=== PATIENT | female | born 1995 | race American Indian/Alaskan Native ===

== ENCOUNTER 2017-01-17 07:39 | Emergency (ER) | payer OTHER ==
[2017-01-17 07:39] VITALS: BMI 47.7
[2017-01-17 07:52] VITALS: BP 142/91; PULSE 78; RESP 16; TEMP 97.8; O2SAT 98
--- NOTE | 2017-01-17 07:56 | ED PDOC ---
HPI: General Adult Time Seen by Provider: 01/17/17 07:48 Chief Complaint (Nursing): Lower Extremity Problem/Injury Chief Complaint (Provider): right foot pain History Per: Patient History/Exam Limitations: no limitations Additional Complaint(s): 21yo female comes to the ED complaining of sudden onset right foot pain since yesterday. States since waking up this morning she has difficulty bearing weight on the right foot. Denies any falls, twisting or other trauma. No leg pain, back pain, knee pain. no other complaints. Past Medical History Reviewed: Historical Data, Nursing Documentation, Vital Signs Vital Signs: Last Vital Signs Temp 97.8 F 01/17/17 07:45 Pulse 78 01/17/17 07:45 Resp 16 01/17/17 07:45 BP 142/91 H 01/17/17 07:45 Pulse Ox 98 01/17/17 07:58 - Medical History PMH: No Chronic Diseases - Surgical History Surgical History: Tonsillectomy (and adenoidectomy) - Family History Family History: States: Unknown Family Hx - Home Medications Home Medications: Ambulatory Orders Medication Instructions Recorded Famotidine [Pepcid] 20 mg PO BID #20 tab 12/26/16 Ibuprofen [Motrin] 600 mg PO Q6H PRN #20 tab 12/26/16 Nitrofurantoin Macrocrystals 100 mg PO BID #14 cap 12/26/16 [Macrobid] Ondansetron [Zofran Odt] 4 mg PO Q8H PRN #15 odt 12/26/16 Ibuprofen [Motrin Tab] 600 mg PO Q6 PRN #15 tab 01/17/17 - Allergies Allergies/Adverse Reactions: Allergies Allergy/AdvReac Type Severity Reaction Status Date / Time Penicillins Allergy RASH Verified 12/14/16 11:49 pineapple Allergy SWELLING Verified 12/14/16 11:49 Review of Systems ROS Statement: Except As Marked, All Systems Reviewed And Found Negative Musculoskeletal: Positive for: Foot Pain. Negative for: Back Pain, Leg Pain, Other (knee pain) Physical Exam - Reviewed Nursing Documentation Reviewed: Yes Vital Signs Reviewed: Yes - Physical Exam Appears: Positive for: Well, Non-toxic, No Acute Distress Head Exam: Positive for: ATRAUMATIC, NORMAL INSPECTION, NORMOCEPHALIC Skin: Positive for: Warm, Dry Extremity: Positive for: Normal ROM, Tenderness (mild tenderness on dorsum of right foot. ). Negative for: Deformity, Swelling Neurologic/Psych: Positive for: Alert, Oriented - ECG O2 Sat by Pulse Oximetry: 98 (RA) Pulse Ox Interpretation: Normal Medical Decision Making Medical Decision Makin XR Right Foot, XR Right ankle ordered to rule out fracture. Motrin 600mg ordered for pain. Disposition - Clinical Impression Clinical Impression: Foot pain - Patient ED Disposition Is Patient to be Admitted: No Counseled Patient/Family Regarding: Studies Performed, Diagnosis, Need For Followup, Rx Given - Disposition Referrals: Stefan Larson MD [Staff Provider] - Disposition: Routine/Home Disposition Time: 10:58 Condition: STABLE Additional Instructions: See foot doctor for further testing. Use medication for pain as directed. Prescriptions: Ibuprofen [Motrin Tab] 600 mg PO Q6 PRN #15 tab PRN Reason: Pain, Moderate (4-7) Instructions: Foot Sprain (ED) Forms: [facility] ED School/Work Excuse Additional Comments - Additional Comments Additional Comments: Scribe Attestation: Documented by Cesar Denis, acting as a scribe for Bakari Bullock DO. Provider Scribe Attestation: All medical record entries made by the Scribe were at my direction and personally dictated by me. I have reviewed the chart and agree that the record accurately reflects my personal performance of the history, physical exam, medical decision making, and the department course for this patient. I have also personally directed, reviewed, and agree with the discharge instructions and disposition.
--- NOTE | 2017-01-17 10:54 | RAD ---
PROCEDURE: Right ankle 01/17/2017 s. HISTORY: foot pain COMPARISON: Comparison made with concurrent radiographs of the right foot as well as prior radiographs right ankle this 07/22/2010. FINDINGS: BONES: No evidence of acute displaced fracture nor dislocation. Ankle mortise maintained. Talar dome is intact. JOINTS: No dislocation. No significant osteoarthritis SOFT TISSUES: Normal. OTHER FINDINGS: None. IMPRESSION: No acute fracture seen. . If symptoms persist or occult fracture suspected clinically recommend followup radiographs in 5-10 days as most fractures should become radiographically evident in this timeframe.
--- NOTE | 2017-01-17 11:02 | RAD ---
PROCEDURE: Right Foot Radiographs. HISTORY: foot ankle pain COMPARISON: None. FINDINGS: BONES: Normal. No fracture. JOINTS: Normal. SOFT TISSUES: Normal. OTHER FINDINGS: None. IMPRESSION: No evidence of acute pathology .
== END 2017-01-17 11:07 | disposition home or self-care (01) ==
LOC: H.ER 07:39
DX: M79.671 Pain in right foot (principal)

== ENCOUNTER 2017-01-21 14:44 | Emergency (ER) | payer OTHER ==
[2017-01-21 14:44] VITALS: BMI 47.7
[2017-01-21 14:55] VITALS: BP 126/59; PULSE 86; RESP 22; TEMP 98; O2SAT 98
--- NOTE | 2017-01-21 15:22 | ED PDOC ---
Lower Extremity Pain/Injury Time Seen by Provider: 01/21/17 15:08 Chief Complaint (Nursing): Lower Extremity Problem/Injury Chief Complaint (Provider): right foot pain History Per: Patient History/Exam Limitations: no limitations Onset/Duration Of Symptoms: Days (x 5) Current Symptoms Are (Timing): Still Present Additional Complaint(s): Malini Bragg is a 21 year old female, with no previous medical history, who presents to the ED with complaints of right foot pain which has been ongoing for the past 5 days. Pt reports waking up from sleep 5 days ago and noticing swelling and pain to the foot. Pt reports no trauma, recent travel, using control, shortness of breath or chest pain. Pt reports being seen in the ED 5 days ago where an x-ray was preformed and pt was discharged home on ibuprofen. Pt denies any additional complaints. PMD: Khanh Marroquin MD Past Medical History Reviewed: Historical Data, Nursing Documentation, Vital Signs Vital Signs: Last Vital Signs Temp 98.0 F 01/21/17 14:53 Pulse 86 01/21/17 14:53 Resp 22 01/21/17 14:53 BP 126/59 L 01/21/17 14:53 Pulse Ox 98 01/21/17 14:53 - Medical History PMH: No Chronic Diseases - Surgical History Surgical History: Tonsillectomy (and adenoidectomy) - Family History Family History: States: Unknown Family Hx - Home Medications Home Medications: Ambulatory Orders Medication Instructions Recorded Famotidine [Pepcid] 20 mg PO BID #20 tab 12/26/16 Ibuprofen [Motrin] 600 mg PO Q6H PRN #20 tab 12/26/16 Nitrofurantoin Macrocrystals 100 mg PO BID #14 cap 12/26/16 [Macrobid] Ondansetron [Zofran Odt] 4 mg PO Q8H PRN #15 odt 12/26/16 Ibuprofen [Motrin Tab] 600 mg PO Q6 PRN #15 tab 01/17/17 traMADol [Ultram] 50 mg PO Q6H PRN #15 tab 01/21/17 - Allergies Allergies/Adverse Reactions: Allergies Allergy/AdvReac Type Severity Reaction Status Date / Time Penicillins Allergy RASH Verified 01/21/17 14:52 pineapple Allergy SWELLING Verified 01/21/17 14:52 Review of Systems ROS Statement: Except As Marked, All Systems Reviewed And Found Negative Cardiovascular: Negative for: Chest Pain Respiratory: Negative for: Shortness of Breath Musculoskeletal: Positive for: Foot Pain (right foot pain and swelling ) Physical Exam - Reviewed Nursing Documentation Reviewed: Yes Vital Signs Reviewed: Yes - Physical Exam Appears: Positive for: Well, Non-toxic, No Acute Distress Head Exam: Positive for: ATRAUMATIC, NORMAL INSPECTION, NORMOCEPHALIC Skin: Positive for: Normal Color Eye Exam: Positive for: Normal appearance ENT: Positive for: Normal ENT Inspection Respiratory: Negative for: Decreased Breath Sounds, Respiratory Distress Extremity: Positive for: Normal ROM, Tenderness (generalized in the mid foot. ) , Capillary Refill (< 2 seconds ), Swelling. Negative for: Calf Tenderness, Deformity Neurologic/Psych: Positive for: Alert, Oriented - Laboratory Results Result Diagrams: 01/21/17 18:17 - ECG O2 Sat by Pulse Oximetry: 98 (RA) Pulse Ox Interpretation: Normal Medical Decision Making Medical Decision Making: Initial Impression: foot pain Initial Plan: Podiatry consult Podiatry resident ordered labs. States to discharge the patient and f.u with podiatry. Sed rate is still pending. Scribe Attestation: Documented by Neha Frost, acting as a scribe for Hina Hurtado PA-C. Provider Scribe Attestation: All medical record entries made by the Scribe were at my direction and personally dictated by me. I have reviewed the chart and agree that the record accurately reflects my personal performance of the history, physical exam, medical decision making, and the department course for this patient. I have also personally directed, reviewed, and agree with the discharge instructions and disposition. Disposition - Clinical Impression Clinical Impression: Foot pain - Patient ED Disposition Is Patient to be Admitted: No Counseled Patient/Family Regarding: Diagnosis, Need For Followup, Rx Given - Disposition Referrals: Carina Garber [Primary Care Provider] - Disposition: Routine/Home Disposition Time: 19:11 Condition: GOOD Prescriptions: traMADol [Ultram] 50 mg PO Q6H PRN #15 tab PRN Reason: Pain Instructions: Arthralgia (ED)
--- NOTE | 2017-01-21 17:11 | CP.PCM.CON ---
History of Present Illness - History of Present Illness History of Present Illness: 21 year old female with no PMHx presents to the ED with complaints of right foot pain. She states that she came to the ED on Tuesday with the same complaint. She woke up Tuesday morning and noticed swelling and pain to her right foot. She denies any trauma. She state at her last visit she got an xray which was negative. She has been icing and elevating her right lower extremity but the pain is still there. She denies taking any oral medication for the pain. She denies n/v/f/c/sob/cp. Past Patient History - Infectious Disease Hx of Infectious Diseases: None - Past Social History Smoking Status: Never Smoked - CARDIAC Hx Cardiac Disorders: No - PULMONARY Hx Respiratory Disorders: No - NEUROLOGICAL Hx Neurological Disorder: No - HEENT Hx HEENT Problems: No - ENDOCRINE/METABOLIC Hx Endocrine Disorders: No - HEMATOLOGICAL/ONCOLOGICAL Hx Blood Disorders: No - INTEGUMENTARY Other/Comment: folliculitis - MUSCULOSKELETAL/RHEUMATOLOGICAL Hx Musculoskeletal Disorders: No - GASTROINTESTINAL Hx Gastrointestinal Disorders: No Other/Comment: c/o vomiting - GENITOURINARY/GYNECOLOGICAL Hx Genitourinary Disorders: No - PSYCHIATRIC Hx Psychophysiologic Disorder: No Hx Substance Use: No - SURGICAL HISTORY Hx Tonsillectomy: Yes (and adenoidectomy) - ANESTHESIA Hx Anesthesia: Yes Hx Anesthesia Reactions: No Hx Malignant Hyperthermia: No Meds Allergies/Adverse Reactions: Allergies Allergy/AdvReac Type Severity Reaction Status Date / Time Penicillins Allergy RASH Verified 01/21/17 14:52 pineapple Allergy SWELLING Verified 01/21/17 14:52 Physical Exam - Constitutional Appears: Well, Non-toxic, No Acute Distress - Extremities Exam Additional comments: Vasc: DP and PT pulses palpable 2/4 b/l. CFT < 3 seconds to all digits b/l. Skin temperature warm to cool from proximal to distal b/l. Neuro: Gross sensation intact b/l. Ortho: Pain on palpation of right midfoot. No pain on palpation to deltoid ligaments, ATFL, PTFL, or CFL. No calf tenderness upon compression. Derm: No open lesions. No erythema. Mild amount of non-pitting edema noted to dorsum of right foot. Nails 1-5 b/l WNL for thickness and length. - Neurological Exam Neurological exam: Alert, Oriented x3 - Psychiatric Exam Psychiatric exam: Normal Affect, Normal Mood Results - Vital Signs Recent Vital Signs: Last Vital Signs Temp 98.0 F 01/21/17 14:53 Pulse 86 01/21/17 14:53 Resp 22 01/21/17 14:53 BP 126/59 L 01/21/17 14:53 Pulse Ox 98 01/21/17 15:27 - Labs Result Diagrams: 01/21/17 18:17 Assessment & Plan - Assessment and Plan (Free Text) Assessment: 21 year old female with soft tissue pain and swelling to right foot Plan: Patient examined and evaluated Discussed in detail with attending, Dr. Larson Chart and vitals reviewed Radiographs reviewed-no signs of acute fracture noted CBC reviewed-WNL Right foot dressed with modified treadwell compressive dressing Patient to ambulate in surgical shoe on the right RICE therapy:Ice and elevate daily,Patient instructed to rest this weekend and keep off foot as much as possible If patient is feeling better, may remove dressing early next week Patient to follow up in Podiatry clinic next week, may obtain new radiographs at this time
[2017-01-21 18:21] LABS: HEMATOCRIT 40.7 % (34.0-47.0); MEAN CELL VOLUME 83.6 fl (81.0-99.0); MEAN CORPUSCULAR HEMOGLOBIN 27.1 pg (27.0-31.0); MEAN CORPUSCULAR HGB CONC 32.4 g/dL (33.0-37.0); RED CELL DISTRIBUTION WIDTH 13.6 % (11.5-14.5); WHITE BLOOD COUNT 8.7 K/uL (4.8-10.8)
== END 2017-01-21 19:19 | disposition home or self-care (01) ==
LOC: H.ER 14:44
DX: M79.671 Pain in right foot (principal)

== ENCOUNTER 2017-07-12 08:09 | Emergency (ER) | payer OTHER ==
[2017-07-12 08:16] VITALS: BMI 40.3
--- NOTE | 2017-07-12 08:51 | ED PDOC ---
Lower Extremity Pain/Injury Time Seen by Provider: 07/12/17 08:24 Chief Complaint (Nursing): Lower Extremity Problem/Injury Chief Complaint (Provider): Ankle Pain History Per: Patient History/Exam Limitations: no limitations Onset/Duration Of Symptoms: Hrs (x 1) Current Symptoms Are (Timing): Still Present Additional Complaint(s): Malini is a 21 y/o female who complains of right ankle pain after falling down two steps 1 hour ago. She states that she twisted her ankle upon falling but was able to walk to the hospital. PMD: None Provided - Ankle/Foot Description Of Injury: Fell, Twisted Past Medical History Reviewed: Historical Data, Nursing Documentation, Vital Signs Vital Signs: Last Vital Signs Temp 97.8 F 07/12/17 08:15 Pulse 91 H 07/12/17 08:15 Resp 20 07/12/17 08:15 BP 120/57 L 07/12/17 08:15 Pulse Ox 97 07/12/17 08:15 - Medical History PMH: No Chronic Diseases - Surgical History Surgical History: Tonsillectomy (and adenoidectomy) - Family History Family History: States: Unknown Family Hx - Home Medications Home Medications: Ambulatory Orders Medication Instructions Recorded Famotidine [Pepcid] 20 mg PO BID #20 tab 12/26/16 Ibuprofen [Motrin] 600 mg PO Q6H PRN #20 tab 12/26/16 Nitrofurantoin Macrocrystals 100 mg PO BID #14 cap 12/26/16 [Macrobid] Ondansetron [Zofran Odt] 4 mg PO Q8H PRN #15 odt 12/26/16 Ibuprofen [Motrin Tab] 600 mg PO Q6 PRN #15 tab 01/17/17 traMADol [Ultram] 50 mg PO Q6H PRN #15 tab 01/21/17 Ibuprofen [Motrin] 600 mg PO Q6H PRN #20 tab 07/12/17 - Allergies Allergies/Adverse Reactions: Allergies Allergy/AdvReac Type Severity Reaction Status Date / Time Penicillins Allergy RASH Verified 07/12/17 08:20 pineapple Allergy SWELLING Verified 07/12/17 08:20 Review of Systems ROS Statement: Except As Marked, All Systems Reviewed And Found Negative Musculoskeletal: Positive for: Leg Pain (Ankle) Physical Exam - Reviewed Nursing Documentation Reviewed: Yes Vital Signs Reviewed: Yes - Physical Exam Appears: Positive for: Well, Non-toxic, No Acute Distress Pulses-Dorsalis Pedis (R): 2+ Extremity: Positive for: Normal ROM, Tenderness (lateral malleolus), Capillary Refill (< 2 sec), Other (sensation intact). Negative for: Pedal Edema, Deformity, Swelling Neurologic/Psych: Positive for: Alert, Oriented - ECG O2 Sat by Pulse Oximetry: 97 (RA) Pulse Ox Interpretation: Normal - Other Rad XR R foot X-Ray: Interpreted by Me (No fx.) XR R ankle X-Ray: Interpreted by Me (No fx.) Medical Decision Making Medical Decision Making: Initial Impression: Ankle Pain Initial Plan --Urine --XR Ankle AP LAT POST RT --Ibuprofen --Foot Right 3 Views --Reevaluation ~ Scribe Attestation: Documented by Bharathi Melissa, acting as a scribe for Dr. Neha Starks. Provider Scribe Attestation: All medical record entries made by the Scribe were at my direction and personally dictated by me. I have reviewed the chart and agree that the record accurately reflects my personal performance of the history, physical exam, medical decision making, and the department course for this patient. I have also personally directed, reviewed, and agree with the discharge instructions and disposition. Disposition - Clinical Impression Clinical Impression: Ankle sprain - Disposition Referrals: [facility] [Outside] Disposition: Routine/Home Disposition Time: 10:17 Condition: STABLE Prescriptions: Ibuprofen [Motrin] 600 mg PO Q6H PRN #20 tab PRN Reason: Pain, Moderate (4-7) Instructions: Ankle Sprain (ED) Forms: [employer] ([place]), [facility] ED School/Work Excuse
[2017-07-12 10:30] VITALS: BP 128/78; PULSE 78; RESP 19; TEMP 97.6
--- NOTE | 2017-07-12 10:48 | RAD ---
PROCEDURE: Right Foot Radiographs. HISTORY: Lateral pain COMPARISON: None. FINDINGS: BONES: Normal. No fracture. JOINTS: Normal. SOFT TISSUES: Normal. OTHER FINDINGS: None. IMPRESSION: Normal right foot radiographs.
--- NOTE | 2017-07-12 10:50 | RAD ---
PROCEDURE: Right Ankle Radiograph. HISTORY: Lateral pain COMPARISON: None FINDINGS: BONES: Normal. No fracture. JOINTS: Normal. No osteoarthritis. Ankle mortise maintained. Talar dome intact SOFT TISSUES: Normal. OTHER FINDINGS: None. IMPRESSION: Normal right ankle radiographs.
[2017-07-16 14:39] VITALS: O2SAT 97
== END 2017-07-12 10:31 | disposition home or self-care (01) ==
LOC: H.ER 08:09
DX: S93.401S Sprain of unspecified ligament of right ankle, sequela (principal); W00.1XXA Fall from stairs and steps due to ice and snow, initial encounter; Y92.89 Other specified places as the place of occurrence of the external cause

== ENCOUNTER 2017-07-18 08:12 | Emergency (ER) | payer OTHER ==
[2017-07-18 08:12] VITALS: BMI 40.3
[2017-07-18 08:37] VITALS: BP 117/83; PULSE 85; RESP 18; TEMP 97; O2SAT 97
[2017-07-18] MEDS ORDERED: Albuterol 0.083% Inhal Sol (2.5 mg/3 mL) UD INH ONE (08:58)
[2017-07-18] MEDS ORDERED: Albuterol 0.083% Inhal Sol (2.5 mg/3 mL) UD ONE (09:06)
--- NOTE | 2017-07-18 09:09 | ED PDOC ---
HPI: CCC, URI, Sore Throat Time Seen by Provider: 07/18/17 08:15 Chief Complaint (Nursing): Cough, Cold, Congestion Chief Complaint (Provider): Cough, Cold, Congestion History Per: Patient History/Exam Limitations: no limitations Onset/Duration Of Symptoms: Days (x 1 week) Current Symptoms Are (Timing): Still Present Sick Contacts (Context): None Associated Symptoms: Sore Throat, Cough, Sputum, Myalgias, Nasal Congestion Additional Complaint(s): Malini is a 21 y/o female who presents to the ED complaining of cough associated with congestion, body aches, and throat pain, ongoing for 1 week. Her cough is productive of brown phlegm. She reports symptoms worsened today, prompting this visit. Denies any associated fever, nausea, vomiting, or diarrhea. Additionally, patient is complaining of itchy rash to the posterior neck, which she has been applying cortisone cream to without relief. She denies using any new detergents or soaps. PMD: Dr. Carina Garber Past Medical History Reviewed: Historical Data, Nursing Documentation, Vital Signs Vital Signs: Last Vital Signs Temp 97 F L 07/18/17 08:34 Pulse 85 07/18/17 08:34 Resp 18 07/18/17 08:34 BP 117/83 07/18/17 08:34 Pulse Ox 97 07/18/17 10:59 - Medical History PMH: No Chronic Diseases - Surgical History Surgical History: Tonsillectomy (and adenoidectomy) Other surgeries: Knee surgery - Family History Family History: States: Unknown Family Hx - Home Medications Home Medications: Ambulatory Orders Medication Instructions Recorded Famotidine [Pepcid] 20 mg PO BID #20 tab 12/26/16 Ibuprofen [Motrin] 600 mg PO Q6H PRN #20 tab 12/26/16 Nitrofurantoin Macrocrystals 100 mg PO BID #14 cap 12/26/16 [Macrobid] Ondansetron [Zofran Odt] 4 mg PO Q8H PRN #15 odt 12/26/16 Ibuprofen [Motrin Tab] 600 mg PO Q6 PRN #15 tab 01/17/17 traMADol [Ultram] 50 mg PO Q6H PRN #15 tab 01/21/17 Ibuprofen [Motrin] 600 mg PO Q6H PRN #20 tab 07/12/17 Albuterol HFA [Ventolin HFA 90 1 - 2 puff IH Q4H PRN #1 bottle 07/18/17 mcg/actuation (8 g)] - Allergies Allergies/Adverse Reactions: Allergies Allergy/AdvReac Type Severity Reaction Status Date / Time Penicillins Allergy RASH Verified 07/18/17 08:34 pineapple Allergy SWELLING Verified 07/18/17 08:34 Review of Systems ROS Statement: Except As Marked, All Systems Reviewed And Found Negative Constitutional: Negative for: Fever ENT: Positive for: Nose Congestion, Throat Pain Respiratory: Positive for: Cough, Sputum Gastrointestinal: Negative for: Nausea, Vomiting, Diarrhea Physical Exam - Reviewed Nursing Documentation Reviewed: Yes Vital Signs Reviewed: Yes - Physical Exam Appears: Positive for: Well, Non-toxic, No Acute Distress Head Exam: Positive for: ATRAUMATIC, NORMAL INSPECTION, NORMOCEPHALIC Skin: Positive for: Normal Color (with irritated dry skin to the posterior neck ), Warm, Dry Eye Exam: Positive for: EOMI, Normal appearance, PERRL ENT: Positive for: Normal ENT Inspection, TM Is/Are (normal bilaterally). Negative for: Pharyngeal Erythema Neck: Positive for: Painless ROM, Supple Cardiovascular/Chest: Positive for: Regular Rate, Rhythm. Negative for: Murmur Respiratory: Positive for: Normal Breath Sounds. Negative for: Accessory Muscle Use, Respiratory Distress Gastrointestinal/Abdominal: Positive for: Normal Exam, Soft. Negative for: Tenderness Extremity: Positive for: Normal ROM. Negative for: Pedal Edema, Deformity Neurologic/Psych: Positive for: Alert, Oriented - ECG O2 Sat by Pulse Oximetry: 97 (RA) Pulse Ox Interpretation: Normal Medical Decision Making Medical Decision Making: Time: 8:57 Initial Plan: --Ordered Chest x-ray to rule out pneumonia --Albuterol nebulizer treatment --Peak Flow pre/post treatment --Ordered rapid strep test --Pending reevaluation --Labs reviewed, and are normal. Time: 10:48 Chest x-ray: FINDINGS: LUNGS: The lungs are well inflated and clear. PLEURA: No significant pleural effusion identified. No pneumothorax apparent. CARDIOVASCULAR: Normal. OSSEOUS STRUCTURES: No significant abnormalities. VISUALIZED UPPER ABDOMEN: Normal. OTHER FINDINGS: None. IMPRESSION: No active pulmonary disease. Time: 10:54 --Patient reports improvement in symptoms. --She is medically stable and will be discharged home with prescription for Albuterol. Clinical Impression: Common cold Counseling was provided and all questions were answered regarding diagnosis and need for follow up with PMD. There is agreement to discharge plan. Return if symptoms persist or worsen. Scribe Attestation: Documented by Ruby Chappell, acting as a scribe for Kayla Carlson MD Provider Scribe Attestation: All medical record entries made by the Scribe were at my direction and personally dictated by me. I have reviewed the chart and agree that the record accurately reflects my personal performance of the history, physical exam, medical decision making, and the department course for this patient. I have also personally directed, reviewed, and agree with the discharge instructions and disposition. Disposition - Clinical Impression Clinical Impression: Common cold - Patient ED Disposition Is Patient to be Admitted: No Counseled Patient/Family Regarding: Studies Performed, Diagnosis, Need For Followup - Disposition Referrals: [facility] [Outside] [facility] [Outside] Disposition: Routine/Home Disposition Time: 10:40 Condition: IMPROVED Additional Instructions: follow up with your primary doctor in 1-2 days return to the ED with any worsening or concerning symptoms Prescriptions: Albuterol HFA [Ventolin HFA 90 mcg/actuation (8 g)] 1 - 2 puff IH Q4H PRN #1 bottle PRN Reason: Wheezing Instructions: Viral Syndrome (ED) Forms: [employer] ([place]ian), [facility] ED School/Work Excuse
--- NOTE | 2017-07-18 10:49 | RAD ---
HISTORY: Cough COMPARISON: 07/03/2014. TECHNIQUE: Chest PA and lateral FINDINGS: LUNGS: The lungs are well inflated and clear. PLEURA: No significant pleural effusion identified. No pneumothorax apparent. CARDIOVASCULAR: Normal. OSSEOUS STRUCTURES: No significant abnormalities. VISUALIZED UPPER ABDOMEN: Normal. OTHER FINDINGS: None. IMPRESSION: No active pulmonary disease.
== END 2017-07-18 11:35 | disposition home or self-care (01) ==
LOC: H.ER 08:12
DX: J00 Acute nasopharyngitis [common cold] (principal)

== ENCOUNTER 2017-07-26 10:58 | Emergency (ER) | payer OTHER ==
[2017-07-26 11:09] VITALS: BP 109/40; PULSE 75; TEMP 98.5; O2SAT 98; BMI 45.1
[2017-07-26 13:32] VITALS: RESP 18
--- NOTE | 2017-07-26 13:52 | ED PDOC ---
HPI: General Adult Time Seen by Provider: 07/26/17 11:21 Chief Complaint (Nursing): Shortness Of Breath History Per: Patient Additional Complaint(s): Pt. states for >1 week she's had a cough productive of yellow sputum. Pt. states that she was initially seen in this ED at the onset of symptoms when she was also having chest tightness. She had CXR done which was normal and was prescribed an albuterol inhaler with good relief of chest tightness but cough persists and has actually worsened. Denies chest pain, SOB, hemoptysis, fever, recent travel, sick contacts, abdominal pain, N/V/D. Past Medical History Reviewed: Historical Data, Nursing Documentation, Vital Signs Vital Signs: Last Vital Signs Temp 98.5 F 07/26/17 11:08 Pulse 75 07/26/17 11:08 Resp 18 07/26/17 11:31 BP 109/40 L 07/26/17 11:08 Pulse Ox 98 07/26/17 11:08 - Surgical History Surgical History: Tonsillectomy (and adenoidectomy) - Family History Family History: States: No Known Family Hx - Home Medications Home Medications: Ambulatory Orders Medication Instructions Recorded Famotidine [Pepcid] 20 mg PO BID #20 tab 12/26/16 Ibuprofen [Motrin] 600 mg PO Q6H PRN #20 tab 12/26/16 Nitrofurantoin Macrocrystals 100 mg PO BID #14 cap 12/26/16 [Macrobid] Ondansetron [Zofran Odt] 4 mg PO Q8H PRN #15 odt 12/26/16 Ibuprofen [Motrin Tab] 600 mg PO Q6 PRN #15 tab 01/17/17 traMADol [Ultram] 50 mg PO Q6H PRN #15 tab 01/21/17 Ibuprofen [Motrin] 600 mg PO Q6H PRN #20 tab 07/12/17 Albuterol HFA [Ventolin HFA 90 1 - 2 puff IH Q4H PRN #1 bottle 07/18/17 mcg/actuation (8 g)] Azithromycin [Zithromax] 250 mg PO DAILY #6 tab 07/26/17 Benzonatate [Tessalon Perle] 100 mg PO Q8 PRN #30 capsule 07/26/17 - Allergies Allergies/Adverse Reactions: Allergies Allergy/AdvReac Type Severity Reaction Status Date / Time Penicillins Allergy RASH Verified 07/18/17 08:34 pineapple Allergy SWELLING Verified 07/18/17 08:34 Review of Systems ROS Statement: Except As Marked, All Systems Reviewed And Found Negative Respiratory: Positive for: Cough Physical Exam - Physical Exam Appears: Positive for: Well, Non-toxic, No Acute Distress Skin: Positive for: Normal Color, Warm. Negative for: Rash Eye Exam: Positive for: Normal appearance ENT: Positive for: Normal ENT Inspection. Negative for: Tonsillar Exudate Cardiovascular/Chest: Positive for: Regular Rate, Rhythm Respiratory: Positive for: Normal Breath Sounds. Negative for: Rales Back: Positive for: Normal Inspection. Negative for: L CVA Tenderness, R CVA Tenderness Extremity: Positive for: Normal ROM Neurologic/Psych: Positive for: Alert, Oriented - ECG O2 Sat by Pulse Oximetry: 98 - Progress ED Course And Treament: CXR results reviewed from last ED visit which showed NAD. Disposition - Clinical Impression Clinical Impression: Acute bronchitis - Patient ED Disposition Is Patient to be Admitted: No - Disposition Referrals: [facility] [Outside] Disposition: Routine/Home Disposition Time: 12:45 Condition: STABLE Prescriptions: Azithromycin [Zithromax] 250 mg PO DAILY #6 tab Benzonatate [Tessalon Perle] 100 mg PO Q8 PRN #30 capsule PRN Reason: Cough Instructions: Acute Bronchitis (ED) Forms: [employer] (Micronesian), [facility] ED School/Work Excuse
== END 2017-07-26 13:00 | disposition home or self-care (01) ==
LOC: H.ER 10:58
DX: J20.8 Acute bronchitis due to other specified organisms (principal)

== ENCOUNTER 2017-08-09 09:08 | Emergency (ER) | payer OTHER ==
[2017-08-09 09:08] VITALS: BMI 45.1
[2017-08-09 09:13] VITALS: BP 115/61; PULSE 83; TEMP 97; O2SAT 98
--- NOTE | 2017-08-09 10:51 | ED PDOC ---
Upper Extremity Pain/Injury Time Seen by Provider: 08/09/17 09:25 Chief Complaint (Nursing): Upper Extremity Problem/Injury Chief Complaint (Provider): Upper extremity injury History Per: Patient History/Exam Limitations: no limitations Onset/Duration Of Symptoms: Days (x2) Current Symptoms Are (Timing): Still Present Additional Complaint(s): Malini Bragg is a 22 year old female, with a past medical history of carpal tunnel syndrome, who presents to the emergency department complaining of right hand pain onset 2 days. 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 She states when the pain developed she began noticing swelling on right hand with some tingling on pinky finger. Patient has full movement of hand and denies any weakness. No further medical complaints. PMD: Carina Garber Past Medical History Reviewed: Historical Data, Nursing Documentation, Vital Signs Vital Signs: Last Vital Signs Temp 97 F L 08/09/17 09:12 Pulse 83 08/09/17 09:12 Resp BP 115/61 08/09/17 09:12 Pulse Ox 98 08/09/17 09:12 - Medical History PMH: Denies: Chronic Kidney Disease - Surgical History Surgical History: Tonsillectomy (and adenoidectomy) - Family History Family History: States: Unknown Family Hx - Social History Current smoker - smoking cessation education provided: No Alcohol: None Drugs: Denies - Home Medications Home Medications: Ambulatory Orders Medication Instructions Recorded Famotidine [Pepcid] 20 mg PO BID #20 tab 12/26/16 Ibuprofen [Motrin] 600 mg PO Q6H PRN #20 tab 12/26/16 Nitrofurantoin Macrocrystals 100 mg PO BID #14 cap 12/26/16 [Macrobid] Ondansetron [Zofran Odt] 4 mg PO Q8H PRN #15 odt 12/26/16 traMADol [Ultram] 50 mg PO Q6H PRN #15 tab 01/21/17 Ibuprofen [Motrin] 600 mg PO Q6H PRN #20 tab 07/12/17 Albuterol HFA [Ventolin HFA 90 1 - 2 puff IH Q4H PRN #1 bottle 07/18/17 mcg/actuation (8 g)] Azithromycin [Zithromax] 250 mg PO DAILY #6 tab 07/26/17 Benzonatate [Tessalon Perle] 100 mg PO Q8 PRN #30 capsule 07/26/17 Ibuprofen [Motrin Tab] 600 mg PO Q6 PRN #15 tab 08/09/17 - Allergies Allergies/Adverse Reactions: Allergies Allergy/AdvReac Type Severity Reaction Status Date / Time Penicillins Allergy RASH Verified 08/09/17 09:30 pineapple Allergy SWELLING Verified 08/09/17 09:30 Review of Systems ROS Statement: Except As Marked, All Systems Reviewed And Found Negative Musculoskeletal: Positive for: Hand Pain (right hand swelling with some tingling in pinky finger) Neurological: Negative for: Weakness Physical Exam - Reviewed Nursing Documentation Reviewed: Yes Vital Signs Reviewed: Yes - Physical Exam Appears: Positive for: Well, Non-toxic, No Acute Distress Head Exam: Positive for: ATRAUMATIC, NORMAL INSPECTION, NORMOCEPHALIC Skin: Positive for: Normal Color, Warm, Dry Eye Exam: Positive for: Normal appearance Neck: Positive for: Normal, Painless ROM, Supple Respiratory: Negative for: Respiratory Distress Extremity: Positive for: Normal ROM (on right hand), Capillary Refill (Normal. Hand is well perfused ), Swelling (diffused swelling on right hand ), Other ( Strength and sensation present in all fingers. Skin is normal ). Negative for: Tenderness (soft, no redness on right hand) Neurologic/Psych: Positive for: Alert, Oriented - ECG O2 Sat by Pulse Oximetry: 98 (RA) Pulse Ox Interpretation: Normal Medical Decision Making Medical Decision Making: Initial Impression: carpal tunnel neuropathy. Initial Plan: --Motrin Tab 600 mg PO --reevaluation -wrist brace applied by building tech to right hand -At this time patient has no motor/sensory deficits. No compartment syndrome. Patient was instructed in warm compresses. Wrist was immobilized in the ED and pt was referred to hand surgeon. Scribe Attestation: Documented by Ilya Denis, acting as a scribe for Racheal Begum MD Provider Scribe Attestation: All medical record entries made by the Scribe were at my direction and personally dictated by me. I have reviewed the chart and agree that the record accurately reflects my personal performance of the history, physical exam, medical decision making, and the department course for this patient. I have also personally directed, reviewed, and agree with the discharge instructions and disposition. Disposition - Clinical Impression Clinical Impression: Right hand pain, Carpal tunnel syndrome - Patient ED Disposition Is Patient to be Admitted: No Doctor Will See Patient In The: Office Counseled Patient/Family Regarding: Studies Performed, Diagnosis, Need For Followup - Disposition Referrals: Saulo Berry MD [Medical Doctor] - Disposition Time: 10:30 Condition: GOOD Additional Instructions: Rear brace during day. take motrin for pain. Follow up with hand specialist within 2-3 days. You will be called for follow up appointment in 2 days. Prescriptions: Ibuprofen [Motrin Tab] 600 mg PO Q6 PRN #15 tab PRN Reason: Pain, Moderate (4-7) Instructions: Carpal Tunnel Syndrome (ED) Forms: [employer] (Moroccan), [facility] ED School/Work Excuse
== END 2017-08-09 10:59 | disposition home or self-care (01) ==
LOC: H.ER 09:08
DX: G56.00 Carpal tunnel syndrome, unspecified upper limb (principal); M79.641 Pain in right hand; Z88.0 Allergy status to penicillin

== ENCOUNTER 2017-08-11 12:15 | Emergency (ER) | payer OTHER ==
[2017-08-11 12:15] VITALS: BMI 45.1
[2017-08-11 12:23] VITALS: BP 112/54; PULSE 85; RESP 18; TEMP 97; O2SAT 98
--- NOTE | 2017-08-11 12:54 | ED PDOC ---
HPI: Skin/Bite Injury Time Seen by Provider: 08/11/17 12:38 Chief Complaint (Nursing): Abnormal Skin Integrity Chief Complaint (Provider): Rash History Per: Patient History/Exam Limitations: no limitations Onset/Duration Of Symptoms: Days (2) Current Symptoms Are (Timing): Still Present Additional Complaint(s): Patient is a 22 y/o female with a past medical history of bronchitis presenting to the emergency department for a small rash on her right arm ongoing for two days. Reports a similar rash on her right lower abdominal area and left upper chest wall. Denies fever or other complaints. PCP: none provided. Past Medical History Vital Signs: Last Vital Signs Temp 97 F L 08/11/17 12:19 Pulse 85 08/11/17 12:19 Resp 18 08/11/17 12:19 BP 112/54 L 08/11/17 12:19 Pulse Ox 98 08/11/17 12:54 - Medical History PMH: Denies: Chronic Kidney Disease - Surgical History Surgical History: Tonsillectomy (and adenoidectomy) - Family History Family History: States: Unknown Family Hx - Home Medications Home Medications: Ambulatory Orders Medication Instructions Recorded Famotidine [Pepcid] 20 mg PO BID #20 tab 12/26/16 Ibuprofen [Motrin] 600 mg PO Q6H PRN #20 tab 12/26/16 Nitrofurantoin Macrocrystals 100 mg PO BID #14 cap 12/26/16 [Macrobid] Ondansetron [Zofran Odt] 4 mg PO Q8H PRN #15 odt 12/26/16 traMADol [Ultram] 50 mg PO Q6H PRN #15 tab 01/21/17 Ibuprofen [Motrin] 600 mg PO Q6H PRN #20 tab 07/12/17 Albuterol HFA [Ventolin HFA 90 1 - 2 puff IH Q4H PRN #1 bottle 07/18/17 mcg/actuation (8 g)] Azithromycin [Zithromax] 250 mg PO DAILY #6 tab 07/26/17 Benzonatate [Tessalon Perle] 100 mg PO Q8 PRN #30 capsule 07/26/17 Ibuprofen [Motrin Tab] 600 mg PO Q6 PRN #15 tab 08/09/17 DiphenhydrAMINE [Benadryl] 1 - 2 tab PO Q6 PRN #24 cap 08/11/17 Hydrocortisone 0.5% CREAM 0.5 gm TOP BID PRN #1 tube 08/11/17 [Cortizone 0.5% CREAM] - Allergies Allergies/Adverse Reactions: Allergies Allergy/AdvReac Type Severity Reaction Status Date / Time Penicillins Allergy RASH Verified 08/09/17 09:30 pineapple Allergy SWELLING Verified 08/09/17 09:30 - ECG O2 Sat by Pulse Oximetry: 98 Disposition - Clinical Impression Clinical Impression: Insect bite - Patient ED Disposition Is Patient to be Admitted: No - Disposition Referrals: [facility] [Outside] Disposition Time: 12:40 Condition: STABLE Prescriptions: DiphenhydrAMINE [Benadryl] 1 - 2 tab PO Q6 PRN #24 cap PRN Reason: Itching / Pruritus Hydrocortisone 0.5% CREAM [Cortizone 0.5% CREAM] 0.5 gm TOP BID PRN #1 tube PRN Reason: Itching / Pruritus Instructions: Insect Bite or Sting (ED) Forms: [employer] (Chilean)
== END 2017-08-11 13:35 | disposition home or self-care (01) ==
LOC: H.ER 12:15
DX: T14.8XXA Other injury of unspecified body region, initial encounter (principal); W57.XXXA Bitten or stung by nonvenomous insect and other nonvenomous arthropods, initial encounter; Y92.89 Other specified places as the place of occurrence of the external cause; Z88.0 Allergy status to penicillin

== ENCOUNTER 2017-08-11 21:59 | Emergency (ER) | payer OTHER ==
[2017-08-11 22:00] VITALS: BMI 45.1
[2017-08-11 22:08] VITALS: BP 131/58; PULSE 86; RESP 20; TEMP 97.3; O2SAT 100
--- NOTE | 2017-08-11 22:32 | ED PDOC ---
HPI: Skin/Bite Injury Time Seen by Provider: 08/11/17 22:11 Chief Complaint (Nursing): Abnormal Skin Integrity Chief Complaint (Provider): rash History Per: Patient History/Exam Limitations: no limitations Onset/Duration Of Symptoms: Days (1), Persistent, Worse Since (today) Additional Complaint(s): Rash for 1 day. 3 lesions on flank and extremities earlier today and seen in this ER and diagnosed with insect bites. Since discharge developed 3-4 more lesions. Itchy and burning. No other affected in the home. No known new exposure or insects in ER. Using hydrocorticone cream and benadryl with minimal relief. Past Medical History Reviewed: Historical Data, Nursing Documentation, Vital Signs Vital Signs: Last Vital Signs Temp 97.3 F L 08/11/17 22:04 Pulse 86 08/11/17 22:04 Resp 20 08/11/17 22:04 BP 131/58 L 08/11/17 22:04 Pulse Ox 100 08/11/17 22:39 - Medical History PMH: No Chronic Diseases Denies: Chronic Kidney Disease - Surgical History Surgical History: Tonsillectomy (and adenoidectomy) - Family History Family History: States: Unknown Family Hx - Living Arrangements Living Arrangements: With Family - Home Medications Home Medications: Ambulatory Orders Medication Instructions Recorded Famotidine [Pepcid] 20 mg PO BID #20 tab 12/26/16 Ibuprofen [Motrin] 600 mg PO Q6H PRN #20 tab 12/26/16 Nitrofurantoin Macrocrystals 100 mg PO BID #14 cap 12/26/16 [Macrobid] Ondansetron [Zofran Odt] 4 mg PO Q8H PRN #15 odt 12/26/16 traMADol [Ultram] 50 mg PO Q6H PRN #15 tab 01/21/17 Ibuprofen [Motrin] 600 mg PO Q6H PRN #20 tab 07/12/17 Albuterol HFA [Ventolin HFA 90 1 - 2 puff IH Q4H PRN #1 bottle 07/18/17 mcg/actuation (8 g)] Azithromycin [Zithromax] 250 mg PO DAILY #6 tab 07/26/17 Benzonatate [Tessalon Perle] 100 mg PO Q8 PRN #30 capsule 07/26/17 Ibuprofen [Motrin Tab] 600 mg PO Q6 PRN #15 tab 08/09/17 Calamine/Pramoxine [Caladryl] 180 ml EXT PRN PRN #1 bottle 08/11/17 DiphenhydrAMINE [Benadryl] 1 - 2 tab PO Q6 PRN #24 cap 08/11/17 Hydrocortisone 0.5% CREAM 0.5 gm TOP BID PRN #1 tube 08/11/17 [Cortizone 0.5% CREAM] Prednisone 50 mg PO DAILY #3 tablet 08/11/17 - Allergies Allergies/Adverse Reactions: Allergies Allergy/AdvReac Type Severity Reaction Status Date / Time Penicillins Allergy RASH Verified 08/09/17 09:30 pineapple Allergy SWELLING Verified 08/09/17 09:30 Review of Systems ROS Statement: Except As Marked, All Systems Reviewed And Found Negative (and as per HPI) Constitutional: Negative for: Fever, Chills ENT: Negative for: Mouth Swelling, Throat Pain, Throat Swelling Cardiovascular: Negative for: Chest Pain Respiratory: Negative for: Cough, Shortness of Breath Skin: Positive for: Rash, Lesions. Negative for: Jaundice, Bruising Physical Exam - Reviewed Nursing Documentation Reviewed: Yes Vital Signs Reviewed: Yes - Physical Exam Appears: Positive for: Non-toxic, No Acute Distress Head Exam: Positive for: ATRAUMATIC, NORMOCEPHALIC Skin: Positive for: Warm, Dry, Pallor (isolated erythematous lesions on upper extremities, upper back, right flank (5 total), erythematous circular with central raised area. Also with one lesion on RIGHT lower leg with central papule more c/w early folliculitis.) Respiratory: Negative for: Accessory Muscle Use, Respiratory Distress - ECG O2 Sat by Pulse Oximetry: 100 Disposition - Clinical Impression Clinical Impression: Insect bite - Disposition Disposition: Routine/Home Disposition Time: 22:27 Condition: STABLE Prescriptions: Calamine/Pramoxine [Caladryl] 180 ml EXT PRN PRN #1 bottle PRN Reason: Itching / Pruritus Prednisone 50 mg PO DAILY #3 tablet Instructions: Insect Bite or Sting (ED)
== END 2017-08-11 22:44 | disposition home or self-care (01) ==
LOC: H.ER 21:59
DX: T14.8XXA Other injury of unspecified body region, initial encounter (principal); W57.XXXA Bitten or stung by nonvenomous insect and other nonvenomous arthropods, initial encounter; Y92.89 Other specified places as the place of occurrence of the external cause; Z88.0 Allergy status to penicillin

== ENCOUNTER 2017-08-30 07:42 | Emergency (ER) | payer OTHER ==
[2017-08-30 07:42] VITALS: BMI 45.1
[2017-08-30 07:53] VITALS: TEMP 98.8
[2017-08-30] MEDS ORDERED: Sodium Chloride 0.9% 1,000 ML IV STA (08:01)
--- NOTE | 2017-08-30 08:11 | ED PDOC ---
HPI: Abdomen Time Seen by Provider: 08/30/17 07:54 Chief Complaint (Provider): Abdominal Pain History Per: Patient History/Exam Limitations: no limitations Onset/Duration Of Symptoms: Days (x1 week) Current Symptoms Are (Timing): Still Present Pain Scale Rating Of: 8 Location Of Pain/Discomfort: Epigastric Associated Symptoms: Diarrhea. denies: Fever, Vomiting, Other (hematochezia) Additional Complaint(s): Malini Bragg is a 22 year old female, with no past medical history, who presents to the emergency department complaining of epigastric abdominal pain associated with diarrhea onset for 1 week. Patient denies any vomiting, fever, or bloody stool. Patient was seen last week in the ED for the same complaints but with no improvement of symptoms. No further medical complaints. PMD: None provided. Past Medical History Reviewed: Historical Data, Nursing Documentation, Vital Signs Vital Signs: Last Vital Signs Temp 98.8 F 08/30/17 07:52 Pulse 85 08/30/17 07:52 Resp 20 08/30/17 07:52 BP 124/80 08/30/17 07:52 Pulse Ox 99 08/30/17 08:16 - Medical History PMH: Denies: Chronic Kidney Disease - Surgical History Surgical History: Tonsillectomy (and adenoidectomy) - Family History Family History: States: Unknown Family Hx - Social History Current smoker - smoking cessation education provided: No Alcohol: None Drugs: Denies - Home Medications Home Medications: Ambulatory Orders Medication Instructions Recorded Famotidine [Pepcid] 20 mg PO BID #20 tab 12/26/16 Ibuprofen [Motrin] 600 mg PO Q6H PRN #20 tab 12/26/16 Nitrofurantoin Macrocrystals 100 mg PO BID #14 cap 12/26/16 [Macrobid] Ondansetron [Zofran Odt] 4 mg PO Q8H PRN #15 odt 12/26/16 traMADol [Ultram] 50 mg PO Q6H PRN #15 tab 01/21/17 Ibuprofen [Motrin] 600 mg PO Q6H PRN #20 tab 07/12/17 Albuterol HFA [Ventolin HFA 90 1 - 2 puff IH Q4H PRN #1 bottle 07/18/17 mcg/actuation (8 g)] Azithromycin [Zithromax] 250 mg PO DAILY #6 tab 07/26/17 Benzonatate [Tessalon Perle] 100 mg PO Q8 PRN #30 capsule 07/26/17 Ibuprofen [Motrin Tab] 600 mg PO Q6 PRN #15 tab 08/09/17 Calamine/Pramoxine [Caladryl] 180 ml EXT PRN PRN #1 bottle 08/11/17 DiphenhydrAMINE [Benadryl] 1 - 2 tab PO Q6 PRN #24 cap 08/11/17 Hydrocortisone 0.5% CREAM 0.5 gm TOP BID PRN #1 tube 08/11/17 [Cortizone 0.5% CREAM] Prednisone 50 mg PO DAILY #3 tablet 08/11/17 Atropine/Diphenoxylate [Lonox 1 tab PO Q8 #10 tab 08/30/17 0.025 MG-2.5 MG] Pantoprazole Sodium [Protonix] 40 mg PO DAILY #30 tablet. 08/30/17 - Allergies Allergies/Adverse Reactions: Allergies Allergy/AdvReac Type Severity Reaction Status Date / Time Penicillins Allergy RASH Verified 08/30/17 08:07 pineapple Allergy SWELLING Verified 08/30/17 08:07 Review of Systems Constitutional: Negative for: Fever Gastrointestinal: Positive for: Abdominal Pain (epigastric ), Diarrhea. Negative for: Vomiting, Hematochezia Physical Exam - Reviewed Nursing Documentation Reviewed: Yes Vital Signs Reviewed: Yes - Physical Exam Appears: Positive for: Non-toxic Head Exam: Positive for: ATRAUMATIC, NORMAL INSPECTION, NORMOCEPHALIC Skin: Positive for: Normal Color, Warm, Dry Eye Exam: Positive for: Normal appearance, EOMI, PERRL Neck: Positive for: Normal, Painless ROM, Supple Cardiovascular/Chest: Positive for: Regular Rate, Rhythm. Negative for: Murmur Respiratory: Positive for: Normal Breath Sounds. Negative for: Respiratory Distress Gastrointestinal/Abdominal: Positive for: Normal Exam, Tenderness (mild epigastric. ). Negative for: Other (No lower abdominal tenderness) Back: Positive for: Normal Inspection. Negative for: L CVA Tenderness, R CVA Tenderness Extremity: Positive for: Normal ROM (lower extremities). Negative for: Tenderness, Swelling Neurologic/Psych: Positive for: Alert, Oriented - Laboratory Results Result Diagrams: 08/30/17 08:29 08/30/17 08:29 - ECG O2 Sat by Pulse Oximetry: 99 (RA) Pulse Ox Interpretation: Normal Medical Decision Making Medical Decision Making: Initial Plan: --Abd & Pelvis IV Contrast only [CT] --Comp Metabolic Panel --Urine --CBC w/ differential --Pepcid 20 mg IVP --NS IV 1,000 ml @ 1,000 mls/hr --reevaluation Scribe Attestation: Documented by Ilya Denis, acting as a scribe for Giovanni Enrique MD Provider Scribe Attestation: All medical record entries made by the Scribe were at my direction and personally dictated by me. I have reviewed the chart and agree that the record accurately reflects my personal performance of the history, physical exam, medical decision making, and the department course for this patient. I have also personally directed, reviewed, and agree with the discharge instructions and disposition. Disposition - Clinical Impression Clinical Impression: Gastroenteritis - Patient ED Disposition Is Patient to be Admitted: No Counseled Patient/Family Regarding: Studies Performed, Diagnosis, Need For Followup, Rx Given - Disposition Referrals: [facility] [Outside] Disposition: Routine/Home Disposition Time: 10:44 Condition: FAIR Prescriptions: Atropine/Diphenoxylate [Lonox 0.025 MG-2.5 MG] 1 tab PO Q8 #10 tab Pantoprazole Sodium [Protonix] 40 mg PO DAILY #30 tablet. Instructions: Gastroenteritis (ED)
[2017-08-30 08:57] LABS: BASO % 0.3 % (0.0-2.0); EOS # 0.1 K/uL (0.0-0.7); EOS % 1.9 % (0.0-4.0); HEMATOCRIT 39.1 % (34.0-47.0); LYMPH # 1.8 K/uL (1.0-4.3); LYMPH % 25.5 % (20.0-40.0); MEAN CELL VOLUME 81.8 fl (81.0-99.0); MEAN CORPUSCULAR HEMOGLOBIN 26.8 pg (27.0-31.0); MEAN CORPUSCULAR HGB CONC 32.7 g/dL (33.0-37.0); MEAN PLATELET VOLUME 9.6 fl (7.2-11.7); MONO # 0.5 K/uL (0.0-0.8); MONO % 7.7 % (0.0-10.0); NEUT # 4.5 K/uL (1.8-7.0); NEUT % 64.6 % (50.0-75.0); NRBC % 0.2 % (0.0-0.0); RED CELL DISTRIBUTION WIDTH 13.4 % (11.5-14.5)
[2017-08-30 09:07] LABS: ALB/GLOB RATIO 1.3 (1.0-2.1); ALKALINE PHOSPHATASE 78 U/L (38-126); ALT/SGPT 48 U/L (9-52); AST/SGOT 31 U/L (14-36); BILIRUBIN,TOTAL 0.5 mg/dl (0.2-1.3); BLOOD UREA NITROGEN 13 mg/dl (7-17); CARBON DIOXIDE 25 mmol/L (22-30); CHLORIDE 107 mmol/L (98-107); GFR AFRICAN-AMERICAN > 60; GLUCOSE,RANDOM 97 mg/dL (65-105); POTASSIUM 3.8 MMOL/L (3.6-5.0); SODIUM 142 mmol/l (132-148); TOTAL PROTEIN 7.6 G/DL (6.3-8.2)
[2017-08-30] MEDS ORDERED: Iohexol 300 100 ML IJ ONE (09:40)
[2017-08-30] MEDS ORDERED: Sodium Chloride 0.9% 50 ML IV ONE (09:40)
--- NOTE | 2017-08-30 10:43 | CT ---
PROCEDURE: CT Abdomen and Pelvis with contrast HISTORY: Abdominal pain and diarrhea COMPARISON: None. TECHNIQUE: CT scan of the abdomen and pelvis was performed after intravenous administration of contrast. Oral contrast was not administered. Coronal and sagittal reformatted images were obtained. Contrast dose: 95 cc Omnipaque 300 Radiation dose: Total exam DLP = 1108.68 mGy-cm. This CT exam was performed using one or more of the following dose reduction techniques: Automated exposure control, adjustment of the mA and/or kV according to patient size, and/or use of iterative reconstruction technique. FINDINGS: LOWER THORAX: There is subsegmental atelectasis in both lower lobes. LIVER: There is mild hepatomegaly and diffuse fatty infiltration in the. No gross lesion or ductal dilatation. GALLBLADDER AND BILE DUCTS: No calcified gallstones. PANCREAS: Normal in size with homogeneous enhancement. No gross lesion or ductal dilatation. SPLEEN: There is borderline splenomegaly. ADRENALS: No discrete nodule. KIDNEYS AND URETERS: Both kidneys are normal in size and there is homogeneous enhancement. No hydronephrosis. No solid mass. VASCULATURE: No aortic aneurysm. BOWEL: The small bowel loops are normal in caliber. The colon is unremarkable. No bowel dilatation or obstruction APPENDIX: No inflammatory changes in the right lower quadrant. PERITONEUM: No free fluid. No free air. LYMPH NODES: There are enlarged mesenteric lymph nodes in the right lower quadrant. BLADDER: Grossly normal in appearance. REPRODUCTIVE: The uterus is normal in size. BONES: No acute fracture. Within normal limits for the patient's age. OTHER FINDINGS: None. IMPRESSION: Enlarged mesenteric lymph nodes in the right lower quadrants most compatible with nonspecific mesenteric adenitis. No acute abdominal or pelvic abnormality. Mild hepatosplenomegaly and fatty infiltration in the liver.
[2017-08-30 10:59] VITALS: BP 108/60; PULSE 71; RESP 16; O2SAT 97
== END 2017-08-30 10:53 | disposition home or self-care (01) ==
LOC: H.ER 07:42
DX: K52.9 Noninfective gastroenteritis and colitis, unspecified (principal); K76.0 Fatty (change of) liver, not elsewhere classified; Z88.0 Allergy status to penicillin
CPT/HCPCS: 74177; 80053; 81025; 85025; 96361; 96374; 99284; J7040; Q9967

== ENCOUNTER 2017-09-26 11:52 | Emergency (ER) | payer OTHER ==
[2017-09-26 11:53] VITALS: BMI 45.1
[2017-09-26 11:58] VITALS: BP 122/51; PULSE 91; RESP 18; TEMP 97; O2SAT 97
--- NOTE | 2017-09-26 13:06 | ED PDOC ---
HPI: General Adult Time Seen by Provider: 09/26/17 12:24 Chief Complaint (Nursing): Abnormal Skin Integrity Chief Complaint (Provider): Abnormal Skin Integrity History Per: Patient, Family (Mother at bedside) History/Exam Limitations: no limitations Onset/Duration Of Symptoms: Days (x3) Current Symptoms Are (Timing): Still Present Additional Complaint(s): Malini Bragg is a 22 year old female with no significant past medical history who presents to the ED complaining of right great toe pain x3 days. Patients mother states she pushed on the patient's nail 2 days ago, and observed pustular drainage. She notes the patient has been soaking the foot in Epsom Salt and noted more drainage yesterday. She denies any recent pedicure, toenail clipping, or trauma. She also denies history of ingrown toenails. LNMP 09/10/17. PMD: [facility] Past Medical History Reviewed: Historical Data, Nursing Documentation, Vital Signs Vital Signs: Last Vital Signs Temp 97 F L 09/26/17 11:56 Pulse 91 H 09/26/17 11:56 Resp 18 09/26/17 11:56 BP 122/51 L 09/26/17 11:56 Pulse Ox 97 09/26/17 13:40 - Medical History PMH: No Chronic Diseases Denies: Chronic Kidney Disease - Surgical History Surgical History: Tonsillectomy (and adenoidectomy) - Family History Family History: States: Unknown Family Hx - Home Medications Home Medications: Ambulatory Orders Medication Instructions Recorded Famotidine [Pepcid] 20 mg PO BID #20 tab 12/26/16 Ibuprofen [Motrin] 600 mg PO Q6H PRN #20 tab 12/26/16 Nitrofurantoin Macrocrystals 100 mg PO BID #14 cap 12/26/16 [Macrobid] Ondansetron [Zofran Odt] 4 mg PO Q8H PRN #15 odt 12/26/16 traMADol [Ultram] 50 mg PO Q6H PRN #15 tab 01/21/17 Ibuprofen [Motrin] 600 mg PO Q6H PRN #20 tab 07/12/17 Albuterol HFA [Ventolin HFA 90 1 - 2 puff IH Q4H PRN #1 bottle 07/18/17 mcg/actuation (8 g)] Azithromycin [Zithromax] 250 mg PO DAILY #6 tab 07/26/17 Benzonatate [Tessalon Perle] 100 mg PO Q8 PRN #30 capsule 07/26/17 Ibuprofen [Motrin Tab] 600 mg PO Q6 PRN #15 tab 08/09/17 Calamine/Pramoxine [Caladryl] 180 ml EXT PRN PRN #1 bottle 08/11/17 DiphenhydrAMINE [Benadryl] 1 - 2 tab PO Q6 PRN #24 cap 08/11/17 Hydrocortisone 0.5% CREAM 0.5 gm TOP BID PRN #1 tube 08/11/17 [Cortizone 0.5% CREAM] Prednisone 50 mg PO DAILY #3 tablet 08/11/17 Atropine/Diphenoxylate [Lonox 1 tab PO Q8 #10 tab 08/30/17 0.025 MG-2.5 MG] Pantoprazole Sodium [Protonix] 40 mg PO DAILY #30 tablet. 08/30/17 Acetaminophen [Tylenol 325mg tab] 975 mg PO TID #20 tab 09/26/17 Clindamycin [Cleocin] 300 mg PO TID 7 Days #21 cap 09/26/17 - Allergies Allergies/Adverse Reactions: Allergies Allergy/AdvReac Type Severity Reaction Status Date / Time Penicillins Allergy RASH Verified 09/26/17 11:56 pineapple Allergy SWELLING Verified 08/30/17 08:07 Review of Systems Musculoskeletal: Positive for: Foot Pain (right great toe) Physical Exam - Reviewed Nursing Documentation Reviewed: Yes Vital Signs Reviewed: Yes - Physical Exam Appears: Positive for: Well, Non-toxic, No Acute Distress Head Exam: Positive for: ATRAUMATIC Skin: Positive for: Normal Color, Warm, DRY Eye Exam: Positive for: Normal appearance Extremity: Positive for: Tenderness (Medial nail fold of right great toe), Other (Ingrown toenail at medial aspect of right great toenail. No drainage appreciated. No overlying erythema. Tender to palpation.) Neurologic/Psych: Positive for: Alert, Oriented (x3) - ECG O2 Sat by Pulse Oximetry: 97 (RA) Pulse Ox Interpretation: Normal Medical Decision Making Medical Decision Making: Time: 12:29 Initial Impression: Ingrown toenail right great toe Plan: --Clindamycin 300 mg PO --Tylenol 975 mg PO --Reevaluation Time: 12:40 --Spoke with Podiatry bone char operator Dr. Tia Clayton who recommended patient start Clindamycin and followup at Podiatry Clinic on Tuesday where they will evaluate to see if any further procedure needs to be performed. Time: 13:08 --Upon provider evaluation patient is medically stable, and requires no further treatment in the ED at this time. Patient will be discharged home with Rx for Clindamycin and Tylenol. Patient and mother advised patient should continue to soak toe. Counseling was provided and all questions were answered regarding diagnosis and need for follow up with Podiatry Clinic. There is agreement to discharge plan. Return if symptoms persist or worsen. Scribe Attestation: Documented by Jordin Moura, acting as a scribe for Charito Ghotra PA-C Provider Scribe Attestation: All medical record entries made by the Scribe were at my direction and personally dictated by me. I have reviewed the chart and agree that the record accurately reflects my personal performance of the history, physical exam, medical decision making, and the department course for this patient. I have also personally directed, reviewed, and agree with the discharge instructions and disposition. Disposition - Clinical Impression Clinical Impression: Ingrown right big toenail - Patient ED Disposition Is Patient to be Admitted: No Counseled Patient/Family Regarding: Diagnosis, Need For Followup, Rx Given - Disposition Referrals: Podiatry Clinic [Outside] Disposition: Routine/Home Disposition Time: : Condition: STABLE Additional Instructions: Soak toe, and take medication as prescribed. Follow up in podiatry clinic on Tuesday as instructed. Return for any worsening or change in symptoms. Prescriptions: Acetaminophen [Tylenol 325mg tab] 975 mg PO TID #20 tab Clindamycin [Cleocin] 300 mg PO TID 7 Days #21 cap Instructions: Ingrown Nail (ED) Forms: [employer] [facility] (Korean) Print Language: HEBREW
== END 2017-09-26 13:48 | disposition home or self-care (01) ==
LOC: H.ER 11:52
DX: L60.0 Ingrowing nail (principal); Z88.0 Allergy status to penicillin

== ENCOUNTER 2017-11-18 09:42 | Emergency (ER) | payer OTHER ==
[2017-11-18 09:42] VITALS: BMI 45.1
[2017-11-18 09:47] VITALS: BP 111/63; PULSE 79; RESP 20; TEMP 97.2; O2SAT 99
--- NOTE | 2017-11-18 10:39 | ED PDOC ---
Lower Extremity Pain/Injury Time Seen by Provider: 11/18/17 10:38 Chief Complaint (Nursing): Lower Extremity Problem/Injury Chief Complaint (Provider): foot pain History Per: Patient Additional Complaint(s): 22-year-old female presents with itchy rash to dorsal aspect of bilateral feet. Patient has had rash for about one month. She states that skin is now burning and peeling. The patient was applying topical bacitracin but this did not help. No fever or chills, no active drainage or bleeding. PMD: [facility] Past Medical History Reviewed: Historical Data, Nursing Documentation, Vital Signs Vital Signs: Last Vital Signs Temp 97.2 F L 11/18/17 09:44 Pulse 79 11/18/17 09:44 Resp 20 11/18/17 09:44 BP 111/63 11/18/17 09:44 Pulse Ox 99 11/18/17 09:44 - Medical History PMH: No Chronic Diseases - Surgical History Surgical History: Tonsillectomy (and adenoidectomy) Other surgeries: left knee surgery - Family History Family History: States: No Known Family Hx - Living Arrangements Living Arrangements: With Family - Social History Current smoker - smoking cessation education provided: No Alcohol: None Drugs: Denies - Home Medications Home Medications: Ambulatory Orders Medication Instructions Recorded Famotidine [Pepcid] 20 mg PO BID #20 tab 12/26/16 Ibuprofen [Motrin] 600 mg PO Q6H PRN #20 tab 12/26/16 Nitrofurantoin Macrocrystals 100 mg PO BID #14 cap 12/26/16 [Macrobid] Ondansetron [Zofran Odt] 4 mg PO Q8H PRN #15 odt 12/26/16 traMADol [Ultram] 50 mg PO Q6H PRN #15 tab 01/21/17 Ibuprofen [Motrin] 600 mg PO Q6H PRN #20 tab 07/12/17 Albuterol HFA [Ventolin HFA 90 1 - 2 puff IH Q4H PRN #1 bottle 07/18/17 mcg/actuation (8 g)] Azithromycin [Zithromax] 250 mg PO DAILY #6 tab 07/26/17 Benzonatate [Tessalon Perle] 100 mg PO Q8 PRN #30 capsule 07/26/17 Ibuprofen [Motrin Tab] 600 mg PO Q6 PRN #15 tab 08/09/17 Calamine/Pramoxine [Caladryl] 180 ml EXT PRN PRN #1 bottle 08/11/17 DiphenhydrAMINE [Benadryl] 1 - 2 tab PO Q6 PRN #24 cap 08/11/17 Hydrocortisone 0.5% CREAM 0.5 gm TOP BID PRN #1 tube 08/11/17 [Cortizone 0.5% CREAM] Prednisone 50 mg PO DAILY #3 tablet 08/11/17 Atropine/Diphenoxylate [Lonox 1 tab PO Q8 #10 tab 08/30/17 0.025 MG-2.5 MG] Pantoprazole Sodium [Protonix] 40 mg PO DAILY #30 tablet. 08/30/17 Acetaminophen [Tylenol 325mg tab] 975 mg PO TID #20 tab 09/26/17 Clindamycin [Cleocin] 300 mg PO TID 7 Days #21 cap 09/26/17 Ammonium Lactate 12% [Lac-Hydrin 1 mg TP DAILY #1 tube 11/18/17 12% Cream (140 g)] - Allergies Allergies/Adverse Reactions: Allergies Allergy/AdvReac Type Severity Reaction Status Date / Time Penicillins Allergy RASH Verified 09/26/17 11:56 pineapple Allergy SWELLING Verified 08/30/17 08:07 Review of Systems ROS Statement: Except As Marked, All Systems Reviewed And Found Negative Constitutional: Negative for: Fever Skin: Positive for: Rash (to both feet) Physical Exam - Reviewed Nursing Documentation Reviewed: Yes Vital Signs Reviewed: Yes - Physical Exam Appears: Positive for: Well, Non-toxic, No Acute Distress Skin: Positive for: Rash (dry skin patches noted to doral aspect of both feet, mild skin excoriations noted from scratching, no acute infection, N/V intact) Eye Exam: Positive for: Normal appearance Extremity: Positive for: Normal ROM. Negative for: Pedal Edema Neurologic/Psych: Positive for: Alert, Oriented - ECG O2 Sat by Pulse Oximetry: 99 Pulse Ox Interpretation: Normal Medical Decision Making Medical Decision Making: Impression: dry skin dermatitis Patient was advised to stop using antibiotic ointment. Prescription provided for Lac-Hydrin cream. Patient was referred to podiatry clinic for follow-up. Disposition - Clinical Impression Clinical Impression: Dry skin dermatitis - Patient ED Disposition Is Patient to be Admitted: No Counseled Patient/Family Regarding: Diagnosis, Need For Followup, Rx Given - Disposition Referrals: Podiatry Clinic [Outside] Disposition: Routine/Home Disposition Time: 10:48 Condition: STABLE Additional Instructions: Apply cream as directed. Follow-up with podiatry clinic for any persistent symptoms. Prescriptions: Ammonium Lactate 12% [Lac-Hydrin 12% Cream (140 g)] 1 mg TP DAILY #1 tube Instructions: Dermatitis (ED) Forms: [facility] (Icelandic)
== END 2017-11-18 10:56 | disposition home or self-care (01) ==
LOC: H.ER 09:42
DX: L30.9 Dermatitis, unspecified (principal); L85.3 Xerosis cutis; Z88.0 Allergy status to penicillin

== ENCOUNTER 2017-11-23 18:14 | Emergency (ER) | payer OTHER ==
[2017-11-23 18:14] VITALS: BMI 45.1
[2017-11-23 18:51] VITALS: BP 136/68; PULSE 88; RESP 18; TEMP 98.4; O2SAT 98
--- NOTE | 2017-11-23 19:34 | ED PDOC ---
HPI: General Adult Time Seen by Provider: 11/23/17 19:26 Chief Complaint (Nursing): Flu-like Symptoms Chief Complaint (Provider): Flu-like Symptoms History Per: Patient History/Exam Limitations: no limitations Onset/Duration Of Symptoms: Days (x 1) Current Symptoms Are (Timing): Still Present Additional Complaint(s): Malini is a 22 year old female who presents to the emergency department complaining of cough, congestion, stuffy nose, body aches, and sore throat for 1 day. Patient states she is around many (+) sick contacts at school. PMD: No Family Provider Past Medical History Reviewed: Historical Data, Nursing Documentation, Vital Signs Vital Signs: Last Vital Signs Temp 98.4 F 11/23/17 18:49 Pulse 88 11/23/17 18:49 Resp 18 11/23/17 18:49 BP 136/68 11/23/17 18:49 Pulse Ox 98 11/23/17 19:36 - Medical History PMH: No Chronic Diseases Denies: Chronic Kidney Disease - Surgical History Surgical History: Tonsillectomy (and adenoidectomy) - Family History Family History: States: Unknown Family Hx - Social History Current smoker - smoking cessation education provided: No Alcohol: None Drugs: Denies - Home Medications Home Medications: Ambulatory Orders Medication Instructions Recorded Famotidine [Pepcid] 20 mg PO BID #20 tab 12/26/16 Ibuprofen [Motrin] 600 mg PO Q6H PRN #20 tab 12/26/16 Nitrofurantoin Macrocrystals 100 mg PO BID #14 cap 12/26/16 [Macrobid] Ondansetron [Zofran Odt] 4 mg PO Q8H PRN #15 odt 12/26/16 traMADol [Ultram] 50 mg PO Q6H PRN #15 tab 01/21/17 Ibuprofen [Motrin] 600 mg PO Q6H PRN #20 tab 07/12/17 Albuterol HFA [Ventolin HFA 90 1 - 2 puff IH Q4H PRN #1 bottle 07/18/17 mcg/actuation (8 g)] Azithromycin [Zithromax] 250 mg PO DAILY #6 tab 07/26/17 Benzonatate [Tessalon Perle] 100 mg PO Q8 PRN #30 capsule 07/26/17 Ibuprofen [Motrin Tab] 600 mg PO Q6 PRN #15 tab 08/09/17 Calamine/Pramoxine [Caladryl] 180 ml EXT PRN PRN #1 bottle 08/11/17 DiphenhydrAMINE [Benadryl] 1 - 2 tab PO Q6 PRN #24 cap 08/11/17 Hydrocortisone 0.5% CREAM 0.5 gm TOP BID PRN #1 tube 08/11/17 [Cortizone 0.5% CREAM] Prednisone 50 mg PO DAILY #3 tablet 08/11/17 Atropine/Diphenoxylate [Lonox 1 tab PO Q8 #10 tab 08/30/17 0.025 MG-2.5 MG] Pantoprazole Sodium [Protonix] 40 mg PO DAILY #30 tablet. 08/30/17 Acetaminophen [Tylenol 325mg tab] 975 mg PO TID #20 tab 09/26/17 Clindamycin [Cleocin] 300 mg PO TID 7 Days #21 cap 09/26/17 Ammonium Lactate 12% [Lac-Hydrin 1 mg TP DAILY #1 tube 11/18/17 12% Cream (140 g)] Acetaminophen [Acetaminophen Extra 2 tab PO Q6 PRN #24 tablet 11/23/17 Strength] Ibuprofen [Motrin] 600 mg PO Q8 PRN #21 tab 11/23/17 Oseltamivir Phosphate [Tamiflu] 75 mg PO BID #9 capsule 11/23/17 Pseudoephedrine [Sudafed Tab] 60 mg PO Q6 PRN #24 tab 11/23/17 - Allergies Allergies/Adverse Reactions: Allergies Allergy/AdvReac Type Severity Reaction Status Date / Time Penicillins Allergy RASH Verified 11/23/17 18:51 pineapple Allergy SWELLING Verified 11/23/17 18:51 Review of Systems ROS Statement: Except As Marked, All Systems Reviewed And Found Negative Constitutional: Positive for: Other (Body aches) ENT: Positive for: Nose Congestion, Throat Pain Respiratory: Positive for: Cough Physical Exam - Reviewed Nursing Documentation Reviewed: Yes Vital Signs Reviewed: Yes - Physical Exam Appears: Positive for: Non-toxic Head Exam: Positive for: ATRAUMATIC, NORMAL INSPECTION, NORMOCEPHALIC Skin: Positive for: Normal Color, Warm, Dry Eye Exam: Positive for: Normal appearance ENT: Positive for: Normal ENT Inspection. Negative for: Pharyngeal Erythema Neck: Positive for: Normal Cardiovascular/Chest: Positive for: Regular Rate, Rhythm Respiratory: Positive for: Normal Breath Sounds. Negative for: Respiratory Distress Gastrointestinal/Abdominal: Positive for: Normal Exam, Bowel Sounds, Soft Back: Positive for: Normal Inspection Extremity: Positive for: Normal ROM. Negative for: Deformity Neurologic/Psych: Positive for: Alert, medical transport specialist II-XII, Oriented (x 3) - ECG O2 Sat by Pulse Oximetry: 98 (RA) Pulse Ox Interpretation: Normal - Progress ED Course And Treament: INFLUENZA A/B NEG RAPID STREP NEG Medical Decision Making Medical Decision Making: Time: 19:28 Plan: - Tamiflu Cap 75 mg PO STAT - Tylenol 325 mg Tab - Influenza A B Stat Scribe Attestation: Documented by Phu Black, acting as a scribe for Art Clayton PA-C. Provider Scribe Attestation: All medical record entries made by the Scribe were at my direction and personally dictated by me. I have reviewed the chart and agree that the record accurately reflects my personal performance of the history, physical exam, medical decision making, and the department course for this patient. I have also personally directed, reviewed, and agree with the discharge instructions and disposition. Disposition - Clinical Impression Clinical Impression: Influenza-like illness - Patient ED Disposition Is Patient to be Admitted: No - Disposition Disposition: Routine/Home Disposition Time: 20:44 Condition: FAIR Prescriptions: Acetaminophen [Acetaminophen Extra Strength] 2 tab PO Q6 PRN #24 tablet PRN Reason: Fever >100.4 F Ibuprofen [Motrin] 600 mg PO Q8 PRN #21 tab PRN Reason: Fever >100.4 F Oseltamivir Phosphate [Tamiflu] 75 mg PO BID #9 capsule Pseudoephedrine [Sudafed Tab] 60 mg PO Q6 PRN #24 tab PRN Reason: Nasal Congestion Instructions: Viral Syndrome (ED) Forms: [employer] (Guamanian), [facility] ED School/Work Excuse
== END 2017-11-23 21:17 | disposition home or self-care (01) ==
LOC: H.ER 18:14
DX: B34.9 Viral infection, unspecified (principal); J11.1 Influenza due to unidentified influenza virus with other respiratory manifestations; Z88.0 Allergy status to penicillin

== ENCOUNTER 2017-12-13 15:12 | Emergency (ER) | payer OTHER ==
[2017-12-13 15:12] VITALS: BMI 45.1
[2017-12-13 15:30] VITALS: BP 136/82; PULSE 94; RESP 16; TEMP 98.7; O2SAT 100
[2017-12-13] MEDS ORDERED: Sodium Chloride 0.9% 1,000 ML IV STA (15:55)
[2017-12-13 16:47] LABS: BASO % 0.3 % (0.0-2.0); EOS # 0.2 K/uL (0.0-0.7); EOS % 2.1 % (0.0-4.0); HEMOGLOBIN 12.9 g/dL (12.0-16.0); LYMPH # 1.9 K/uL (1.0-4.3); LYMPH % 22.3 % (20.0-40.0); MEAN CELL VOLUME 82.8 fl (81.0-99.0); MEAN CORPUSCULAR HEMOGLOBIN 26.9 pg (27.0-31.0); MEAN CORPUSCULAR HGB CONC 32.5 g/dL (33.0-37.0); MEAN PLATELET VOLUME 9.8 fl (7.2-11.7); MONO # 0.7 K/uL (0.0-0.8); MONO % 7.9 % (0.0-10.0); NEUT # 5.6 K/uL (1.8-7.0); NEUT % 67.4 % (50.0-75.0); NRBC % 0.1 % (0.0-0.0); RBC 4.79 Mil/uL (3.80-5.20); RED CELL DISTRIBUTION WIDTH 13.1 % (11.5-14.5); WHITE BLOOD COUNT 8.3 K/uL (4.8-10.8)
[2017-12-13 16:51] LABS: ALB/GLOB RATIO 1.1 (1.0-2.1); ALBUMIN 4.1 g/dL (3.5-5.0); ALT/SGPT 43 U/L (9-52); AST/SGOT 30 U/L (14-36); BLOOD UREA NITROGEN 11 mg/dl (7-17); CALCIUM 9.4 mg/dL (8.4-10.2); GFR AFRICAN-AMERICAN > 60; GFR NON-AFRICAN AMERICAN > 60
--- NOTE | 2017-12-20 19:36 | ED PDOC ---
HPI: General Adult Time Seen by Provider: 12/13/17 15:42 Chief Complaint (Nursing): GI Problem Chief Complaint (Provider): Flu-like symptoms History Per: Patient History/Exam Limitations: no limitations Onset/Duration Of Symptoms: Days (x1) Current Symptoms Are (Timing): Still Present Additional Complaint(s): Malini Bragg is a 22 year old female, with no significant past medical history, who presents to the emergency department complaining of body aches, sore throat, and vomiting onset since last night. Patient was sent from the clinic for evaluation. She denies any fever, chills or other medical complaints. PMD: None provided. Past Medical History Reviewed: Historical Data, Nursing Documentation, Vital Signs Vital Signs: Last Vital Signs Temp 98.7 F 12/13/17 15:28 Pulse 94 H 12/13/17 15:28 Resp 16 12/13/17 15:28 BP 136/82 12/13/17 15:28 Pulse Ox 100 12/13/17 15:28 - Medical History PMH: No Chronic Diseases Denies: Chronic Kidney Disease - Surgical History Surgical History: Tonsillectomy (and adenoidectomy) - Family History Family History: States: Unknown Family Hx - Social History Current smoker - smoking cessation education provided: No Alcohol: None Drugs: Denies - Home Medications Home Medications: Ambulatory Orders Medication Instructions Recorded Famotidine [Pepcid] 20 mg PO BID #20 tab 12/26/16 Ibuprofen [Motrin] 600 mg PO Q6H PRN #20 tab 12/26/16 Nitrofurantoin Macrocrystals 100 mg PO BID #14 cap 12/26/16 [Macrobid] Ondansetron [Zofran Odt] 4 mg PO Q8H PRN #15 odt 12/26/16 traMADol [Ultram] 50 mg PO Q6H PRN #15 tab 01/21/17 Ibuprofen [Motrin] 600 mg PO Q6H PRN #20 tab 07/12/17 Albuterol HFA [Ventolin HFA 90 1 - 2 puff IH Q4H PRN #1 bottle 07/18/17 mcg/actuation (8 g)] Azithromycin [Zithromax] 250 mg PO DAILY #6 tab 07/26/17 Benzonatate [Tessalon Perle] 100 mg PO Q8 PRN #30 capsule 10/10/17 Ibuprofen [Motrin Tab] 600 mg PO Q6 PRN #15 tab 08/09/17 Calamine/Pramoxine [Caladryl] 180 ml EXT PRN PRN #1 bottle 08/11/17 DiphenhydrAMINE [Benadryl] 1 - 2 tab PO Q6 PRN #24 cap 08/11/17 Hydrocortisone 0.5% CREAM 0.5 gm TOP BID PRN #1 tube 08/11/17 [Cortizone 0.5% CREAM] Prednisone 50 mg PO DAILY #3 tablet 08/11/17 Atropine/Diphenoxylate [Lonox 1 tab PO Q8 #10 tab 08/30/17 0.025 MG-2.5 MG] Pantoprazole Sodium [Protonix] 40 mg PO DAILY #30 tablet. 08/30/17 Acetaminophen [Tylenol 325mg tab] 975 mg PO TID #20 tab 09/26/17 Clindamycin [Cleocin] 300 mg PO TID 7 Days #21 cap 09/26/17 Ammonium Lactate 12% [Lac-Hydrin 1 mg TP DAILY #1 tube 11/18/17 12% Cream (140 g)] Acetaminophen [Acetaminophen Extra 2 tab PO Q6 PRN #24 tablet 11/23/17 Strength] Ibuprofen [Motrin] 600 mg PO Q8 PRN #21 tab 11/23/17 Oseltamivir Phosphate [Tamiflu] 75 mg PO BID #9 capsule 11/23/17 Pseudoephedrine [Sudafed Tab] 60 mg PO Q6 PRN #24 tab 11/23/17 Oseltamivir [Tamiflu] 75 mg PO BID #10 cap 12/13/17 - Allergies Allergies/Adverse Reactions: Allergies Allergy/AdvReac Type Severity Reaction Status Date / Time Penicillins Allergy RASH Verified 12/13/17 15:27 pineapple Allergy SWELLING Verified 12/13/17 15:27 Review of Systems ROS Statement: Except As Marked, All Systems Reviewed And Found Negative Constitutional: Positive for: Other (body aches). Negative for: Fever, Chills ENT: Positive for: Throat Pain Gastrointestinal: Positive for: Vomiting Physical Exam - Reviewed Nursing Documentation Reviewed: Yes Vital Signs Reviewed: Yes - Physical Exam Appears: Positive for: Non-toxic, No Acute Distress Head Exam: Positive for: ATRAUMATIC, NORMAL INSPECTION, NORMOCEPHALIC Skin: Positive for: Normal Color, Warm, Dry Eye Exam: Positive for: Normal appearance ENT: Positive for: Normal ENT Inspection Neck: Positive for: Painless ROM Cardiovascular/Chest: Positive for: Regular Rate, Rhythm. Negative for: Murmur Respiratory: Positive for: Normal Breath Sounds. Negative for: Respiratory Distress Gastrointestinal/Abdominal: Positive for: Normal Exam, Soft. Negative for: Tenderness Extremity: Positive for: Normal ROM. Negative for: Deformity, Swelling Neurologic/Psych: Positive for: Alert, Oriented - Laboratory Results Result Diagrams: 12/13/17 16:10 12/13/17 16:10 - ECG O2 Sat by Pulse Oximetry: 100 (RA) Pulse Ox Interpretation: Normal Medical Decision Making Medical Decision Making: Initial Impression: Viral syndrome Initial Plan: --CMP --CBC w/ differential --Sodium Chloride 1,000 ml IV 999 mls/hr --Toradol 30 mg IV --Zofran Inj 4 mg IV --Throat culture --Influenza A B --Rapid Strep Group A Antigen 18:40 Upon provider reevaluation patient is feeling better, is medically stable, and requires no further treatment in the ED at this time. Patient will be discharged home. Counseling was provided and all questions were answered regarding diagnosis and need for follow up. There is agreement to discharge plan. Return if symptoms persist or worsen. ~ Scribe Attestation: Documented by Ilya Denis, acting as a scribe for Kayla Carlson MD. Provider Scribe Attestation: All medical record entries made by the Scribe were at my direction and personally dictated by me. I have reviewed the chart and agree that the record accurately reflects my personal performance of the history, physical exam, medical decision making, and the department course for this patient. I have also personally directed, reviewed, and agree with the discharge instructions and disposition. Disposition - Clinical Impression Clinical Impression: Flu-like symptoms - Disposition Disposition: Routine/Home Disposition Time: 18:40 Condition: IMPROVED Additional Instructions: follow up with your primary doctor in 1-2 days return to the ED with any worsening or concerning symptoms Prescriptions: Oseltamivir [Tamiflu] 75 mg PO BID #10 cap Instructions: Fever, Adult (DC) Forms: [facility] (Telugu), [facility] ED School/Work Excuse
== END 2017-12-13 18:46 | disposition home or self-care (01) ==
LOC: H.ER 15:12
DX: J11.1 Influenza due to unidentified influenza virus with other respiratory manifestations (principal); Z88.0 Allergy status to penicillin
CPT/HCPCS: 80053; 85025; 87070; 87430; 87804; 96361; 96374; 96375; 99283; J1885; J2405; J7040

== ENCOUNTER 2017-12-20 07:54 | Emergency (ER) | payer OTHER ==
[2017-12-20 07:59] VITALS: TEMP 97.8; BMI 48.4
[2017-12-20] MEDS ORDERED: Sodium Chloride 0.9% 1,000 ML IV STA (09:13)
--- NOTE | 2017-12-20 09:41 | ED PDOC ---
HPI: Headache Time Seen by Provider: 12/20/17 08:36 Chief Complaint (Nursing): Headache Chief Complaint (Provider): Headache History Per: Patient History/Exam Limitations: no limitations Onset/Duration Of Symptoms: Days (x1) Current Symptoms Are (Timing): Still Present Preceeding Symptoms: denies: Visual Disturbances Associated Symptoms: Photophobia. denies: Vomiting, Extremity Weakness Additional Complaint(s): Malini Bragg is a 22 year old female with a past medical history of migraines, who presents to the ED with complains of headaches, onset yesterday. Patient reports having diffuse migraines for over two years and yesterday she states she had a constant headache, with only mild and short lasting relief after taking Motrin. She also complains of photophobia associated with migraines. She denies any fever, vomiting, numbness, weakness or visual changes. Patent offers no other medical complaints at this time. PMD: [facility] Past Medical History Reviewed: Historical Data, Nursing Documentation, Vital Signs Vital Signs: Last Vital Signs Temp 97.8 F 12/20/17 07:58 Pulse 85 12/20/17 07:58 Resp BP 120/71 12/20/17 07:58 Pulse Ox 97 12/20/17 07:58 - Medical History PMH: Migraine Denies: Chronic Kidney Disease - Surgical History Surgical History: Tonsillectomy (and adenoidectomy) - Family History Family History: States: Unknown Family Hx - Home Medications Home Medications: Ambulatory Orders Medication Instructions Recorded Famotidine [Pepcid] 20 mg PO BID #20 tab 12/26/16 Ibuprofen [Motrin] 600 mg PO Q6H PRN #20 tab 12/26/16 Nitrofurantoin Macrocrystals 100 mg PO BID #14 cap 12/26/16 [Macrobid] Ondansetron [Zofran Odt] 4 mg PO Q8H PRN #15 odt 12/26/16 traMADol [Ultram] 50 mg PO Q6H PRN #15 tab 01/21/17 Ibuprofen [Motrin] 600 mg PO Q6H PRN #20 tab 07/12/17 Albuterol HFA [Ventolin HFA 90 1 - 2 puff IH Q4H PRN #1 bottle 07/18/17 mcg/actuation (8 g)] Azithromycin [Zithromax] 250 mg PO DAILY #6 tab 07/26/17 Benzonatate [Tessalon Perle] 100 mg PO Q8 PRN #30 capsule 07/26/17 Ibuprofen [Motrin Tab] 600 mg PO Q6 PRN #15 tab 08/09/17 Calamine/Pramoxine [Caladryl] 180 ml EXT PRN PRN #1 bottle 08/11/17 DiphenhydrAMINE [Benadryl] 1 - 2 tab PO Q6 PRN #24 cap 08/11/17 Hydrocortisone 0.5% CREAM 0.5 gm TOP BID PRN #1 tube 08/11/17 [Cortizone 0.5% CREAM] Prednisone 50 mg PO DAILY #3 tablet 08/11/17 Atropine/Diphenoxylate [Lonox 1 tab PO Q8 #10 tab 08/30/17 0.025 MG-2.5 MG] Pantoprazole Sodium [Protonix] 40 mg PO DAILY #30 tablet. 08/30/17 Acetaminophen [Tylenol 325mg tab] 975 mg PO TID #20 tab 09/26/17 Clindamycin [Cleocin] 300 mg PO TID 7 Days #21 cap 09/26/17 Ammonium Lactate 12% [Lac-Hydrin 1 mg TP DAILY #1 tube 11/18/17 12% Cream (140 g)] Acetaminophen [Acetaminophen Extra 2 tab PO Q6 PRN #24 tablet 11/23/17 Strength] Ibuprofen [Motrin] 600 mg PO Q8 PRN #21 tab 11/23/17 Oseltamivir Phosphate [Tamiflu] 75 mg PO BID #9 capsule 11/23/17 Pseudoephedrine [Sudafed Tab] 60 mg PO Q6 PRN #24 tab 11/23/17 Oseltamivir [Tamiflu] 75 mg PO BID #10 cap 12/13/17 - Allergies Allergies/Adverse Reactions: Allergies Allergy/AdvReac Type Severity Reaction Status Date / Time Penicillins Allergy RASH Verified 12/13/17 15:27 pineapple Allergy SWELLING Verified 12/13/17 15:27 Review of Systems ROS Statement: Except As Marked, All Systems Reviewed And Found Negative Constitutional: Negative for: Fever, Weakness Gastrointestinal: Negative for: Vomiting Neurological: Positive for: Headache. Negative for: Weakness, Numbness Physical Exam - Reviewed Nursing Documentation Reviewed: Yes Vital Signs Reviewed: Yes - Physical Exam Appears: Positive for: Non-toxic, No Acute Distress Head Exam: Positive for: ATRAUMATIC, NORMAL INSPECTION, NORMOCEPHALIC Skin: Positive for: Normal Color, Warm, Dry Eye Exam: Positive for: EOMI, Normal appearance, PERRL Neck: Positive for: Normal, Painless ROM, Supple Cardiovascular/Chest: Positive for: Regular Rate, Rhythm. Negative for: Murmur Respiratory: Positive for: Normal Breath Sounds. Negative for: Respiratory Distress Gastrointestinal/Abdominal: Positive for: Normal Exam, Soft. Negative for: Tenderness Back: Positive for: Normal Inspection. Negative for: L CVA Tenderness, R CVA Tenderness, Vertebral Tenderness Extremity: Positive for: Normal ROM. Negative for: Pedal Edema, Deformity, Swelling Neurologic/Psych: Positive for: Alert, Oriented - ECG O2 Sat by Pulse Oximetry: 97 (RA) Pulse Ox Interpretation: Normal - Progress Re-evaluation Time: 10:50 Condition: Re-examined, Improved Medical Decision Making Medical Decision Making: Time: 9:12 Impression: Headaches Differential: Recurrent Headaches, migraines Plan: --ED Urine Dipstick --IV Fluids --Reglan 10 mg IV --Toradol 30 mg IVP Scribe Attestation: Documented by Darlyn Caputo, acting as a scribe for Racheal Begum MD Provider Scribe Attestation: All medical record entries made by the Scribe were at my direction and personally dictated by me. I have reviewed the chart and agree that the record accurately reflects my personal performance of the history, physical exam, medical decision making, and the department course for this patient. I have also personally directed, reviewed, and agree with the discharge instructions and disposition. Disposition - Clinical Impression Clinical Impression: Migraine - Patient ED Disposition Is Patient to be Admitted: No Doctor Will See Patient In The: Office Counseled Patient/Family Regarding: Studies Performed, Diagnosis, Need For Followup - Disposition Referrals: [facility] [Outside] Regulo Terrell MD [Staff Provider] - Disposition: Routine/Home Disposition Time: 10:54 Condition: GOOD Additional Instructions: Take advil for pain. Follow up with your PCP in 3 days. Instructions: Migraine Headache (DC) Forms: [facility] ED School/Work Excuse
[2017-12-20 11:14] VITALS: BP 125/73; PULSE 76; RESP 18
[2017-12-21 07:30] VITALS: O2SAT 97
== END 2017-12-20 11:12 | disposition home or self-care (01) ==
LOC: H.ER 07:54
DX: G43.909 Migraine, unspecified, not intractable, without status migrainosus (principal); Z88.0 Allergy status to penicillin
CPT/HCPCS: 81025; 96374; 99283; J1885; J2765; J7040

== ENCOUNTER 2018-01-15 16:00 | Emergency (ER) | payer OTHER ==
[2018-01-15 16:00] VITALS: BMI 48.4
[2018-01-15 16:11] VITALS: BP 105/57; PULSE 101; RESP 18; TEMP 98.1; O2SAT 99
--- NOTE | 2018-01-15 17:24 | ED PDOC ---
Lower Extremity Pain/Injury Time Seen by Provider: 01/15/18 16:12 Chief Complaint (Nursing): Lower Extremity Problem/Injury Chief Complaint (Provider): Left Foot pain History Per: Patient History/Exam Limitations: no limitations Onset/Duration Of Symptoms: Hrs Current Symptoms Are (Timing): Still Present Severity: None Additional Complaint(s): 22 year old female presents to the emergency department complaining of left foot pain. The patient states that she was walking when she felt a sudden onset of pain. Denies trauma, injury, numbness/tingling. - Ankle/Foot Description Of Injury: Other - Risk Factors DVT Risk Factors: Pos: None Past Medical History Reviewed: Historical Data, Nursing Documentation, Vital Signs Vital Signs: Last Vital Signs Temp 98.1 F 01/15/18 16:09 Pulse 101 H 01/15/18 16:09 Resp 18 01/15/18 16:09 BP 105/57 L 01/15/18 16:09 Pulse Ox 99 01/15/18 16:09 - Medical History PMH: Migraine Denies: Chronic Kidney Disease - Surgical History Surgical History: Tonsillectomy (and adenoidectomy) - Family History Family History: States: Unknown Family Hx - Social History Current smoker - smoking cessation education provided: No Ex-Smoker (has not smoked in the last 12 months): No Alcohol: None Drugs: Denies - Home Medications Home Medications: Ambulatory Orders Medication Instructions Recorded Famotidine [Pepcid] 20 mg PO BID #20 tab 12/26/16 Ibuprofen [Motrin] 600 mg PO Q6H PRN #20 tab 12/26/16 Nitrofurantoin Macrocrystals 100 mg PO BID #14 cap 12/26/16 [Macrobid] Ondansetron [Zofran Odt] 4 mg PO Q8H PRN #15 odt 12/26/16 traMADol [Ultram] 50 mg PO Q6H PRN #15 tab 01/21/17 Ibuprofen [Motrin] 600 mg PO Q6H PRN #20 tab 07/12/17 Albuterol HFA [Ventolin HFA 90 1 - 2 puff IH Q4H PRN #1 bottle 07/18/17 mcg/actuation (8 g)] Azithromycin [Zithromax] 250 mg PO DAILY #6 tab 07/26/17 Benzonatate [Tessalon Perle] 100 mg PO Q8 PRN #30 capsule 07/26/17 Ibuprofen [Motrin Tab] 600 mg PO Q6 PRN #15 tab 08/09/17 Calamine/Pramoxine [Caladryl] 180 ml EXT PRN PRN #1 bottle 08/11/17 DiphenhydrAMINE [Benadryl] 1 - 2 tab PO Q6 PRN #24 cap 08/11/17 Hydrocortisone 0.5% CREAM 0.5 gm TOP BID PRN #1 tube 08/11/17 [Cortizone 0.5% CREAM] Prednisone 50 mg PO DAILY #3 tablet 08/11/17 Atropine/Diphenoxylate [Lonox 1 tab PO Q8 #10 tab 08/30/17 0.025 MG-2.5 MG] Pantoprazole Sodium [Protonix] 40 mg PO DAILY #30 tablet. 08/30/17 Acetaminophen [Tylenol 325mg tab] 975 mg PO TID #20 tab 09/26/17 Clindamycin [Cleocin] 300 mg PO TID 7 Days #21 cap 09/26/17 Ammonium Lactate 12% [Lac-Hydrin 1 mg TP DAILY #1 tube 11/18/17 12% Cream (140 g)] Acetaminophen [Acetaminophen Extra 2 tab PO Q6 PRN #24 tablet 11/23/17 Strength] Ibuprofen [Motrin] 600 mg PO Q8 PRN #21 tab 11/23/17 Oseltamivir Phosphate [Tamiflu] 75 mg PO BID #9 capsule 11/23/17 Pseudoephedrine [Sudafed Tab] 60 mg PO Q6 PRN #24 tab 11/23/17 Oseltamivir [Tamiflu] 75 mg PO BID #10 cap 12/13/17 Naproxen [Naprosyn] 500 mg PO BID PRN #14 tab 01/15/18 - Allergies Allergies/Adverse Reactions: Allergies Allergy/AdvReac Type Severity Reaction Status Date / Time Penicillins Allergy RASH Verified 01/15/18 16:14 pineapple Allergy SWELLING Verified 01/15/18 16:14 Review of Systems ROS Statement: Except As Marked, All Systems Reviewed And Found Negative Musculoskeletal: Positive for: Foot Pain (left) Physical Exam - Reviewed Nursing Documentation Reviewed: Yes Vital Signs Reviewed: Yes - Physical Exam Appears: Positive for: Non-toxic, No Acute Distress Cardiovascular/Chest: Positive for: Regular Rate, Rhythm, Chest Non Tender. Negative for: Tachycardia Respiratory: Positive for: Normal Breath Sounds. Negative for: Wheezing, Respiratory Distress Extremity: Positive for: Capillary Refill (less than 2 seconds). Negative for: Tenderness (no tenderness to left foot), Deformity (no deformity to left foot), Swelling (no swelling to left foot) Neurologic/Psych: Positive for: Alert, Oriented - ECG O2 Sat by Pulse Oximetry: 99 (RA) Pulse Ox Interpretation: Normal - Radiology X-Ray: Interpreted by Me (Foot x-ray) X-Ray Interpretation: No Acute Disease Medical Decision Making Medical Decision Makin Initial Impression 22 year old female presenting with left foot pain Initial Plan * Toradol 60mg IM * RAD LFT Foot 3 views * Reevaluation --------- Documented by Alisa Mckeon acting as a scribe for J Luis Braun MD. All medical record entries made by the Scribe were at my direction and personally dictated by me. I have reviewed the chart and agree that the record accurately reflects my personal performance of the history, physical exam, medical decision making, and the department course for this patient. I have also personally directed, reviewed, and agree with the discharge instructions and disposition. Disposition - Clinical Impression Clinical Impression: Foot pain - Patient ED Disposition Is Patient to be Admitted: No - Disposition Referrals: Podiatry Clinic [Outside] Disposition: Routine/Home Disposition Time: 17:50 Condition: STABLE Prescriptions: Naproxen [Naprosyn] 500 mg PO BID PRN #14 tab PRN Reason: Pain Instructions: Muscle and Bone Pain (DC) Forms: [employer] (Kazakh) Print Language: MAORI
--- NOTE | 2018-01-15 18:06 | RAD ---
PROCEDURE: Left Foot Radiographs. HISTORY: pain COMPARISON: None. FINDINGS: BONES: Lucency in the navicular extending to the talonavicular articulation. JOINTS: Unremarkable. SOFT TISSUES: Mild dorsal soft tissue swelling. OTHER FINDINGS: None. IMPRESSION: Lucency in the navicular extending to the talonavicular articulation may represent an acute nondisplaced fracture. Correlation with the patient's site of pain is recommended.
== END 2018-01-15 18:30 | disposition home or self-care (01) ==
LOC: H.ER 16:00
DX: M79.672 Pain in left foot (principal); Z88.0 Allergy status to penicillin
CPT/HCPCS: 73630; 81025; 96372; 99283; J1885

== ENCOUNTER 2018-02-10 17:27 | Emergency (ER) | payer OTHER ==
[2018-02-10 17:27] VITALS: BMI 48.4
[2018-02-10 17:40] VITALS: O2SAT 98
[2018-02-10] MEDS ORDERED: Sodium Chloride 0.9% 1,000 ML IV STA (18:05)
--- NOTE | 2018-02-10 18:10 | ED PDOC ---
HPI: Abdomen Time Seen by Provider: 02/10/18 17:46 Chief Complaint (Nursing): GI Problem Chief Complaint (Provider): Abdominal Pain History Per: Patient History/Exam Limitations: no limitations Onset/Duration Of Symptoms: Hrs (onset this morning) Context: Travel (no recent travel) Additional Complaint(s): 22 year old female presents to the emergency room for upper abdominal pain associated with nausea, vomiting (non bloody), and diarrhea, onset this morning. She reports having a fever and is unable to currently keep food down. PMD: none provided Past Medical History Reviewed: Historical Data, Nursing Documentation, Vital Signs Vital Signs: Last Vital Signs Temp 98.3 F 02/10/18 17:36 Pulse 83 02/10/18 17:36 Resp 18 02/10/18 17:36 BP 107/67 02/10/18 17:36 Pulse Ox 98 02/10/18 18:50 - Medical History PMH: Migraine Denies: Chronic Kidney Disease - Surgical History Surgical History: Tonsillectomy (and adenoidectomy) - Family History Family History: States: Unknown Family Hx - Home Medications Home Medications: Ambulatory Orders Medication Instructions Recorded Famotidine [Pepcid] 20 mg PO BID #20 tab 12/26/16 Ibuprofen [Motrin] 600 mg PO Q6H PRN #20 tab 12/26/16 Nitrofurantoin Macrocrystals 100 mg PO BID #14 cap 12/26/16 [Macrobid] Ondansetron [Zofran Odt] 4 mg PO Q8H PRN #15 odt 12/26/16 traMADol [Ultram] 50 mg PO Q6H PRN #15 tab 01/21/17 Ibuprofen [Motrin] 600 mg PO Q6H PRN #20 tab 07/12/17 Albuterol HFA [Ventolin HFA 90 1 - 2 puff IH Q4H PRN #1 bottle 07/18/17 mcg/actuation (8 g)] Azithromycin [Zithromax] 250 mg PO DAILY #6 tab 07/26/17 Benzonatate [Tessalon Perle] 100 mg PO Q8 PRN #30 capsule 07/26/17 Ibuprofen [Motrin Tab] 600 mg PO Q6 PRN #15 tab 08/09/17 Calamine/Pramoxine [Caladryl] 180 ml EXT PRN PRN #1 bottle 08/11/17 DiphenhydrAMINE [Benadryl] 1 - 2 tab PO Q6 PRN #24 cap 08/11/17 Hydrocortisone 0.5% CREAM 0.5 gm TOP BID PRN #1 tube 08/11/17 [Cortizone 0.5% CREAM] Prednisone 50 mg PO DAILY #3 tablet 08/11/17 Atropine/Diphenoxylate [Lonox 1 tab PO Q8 #10 tab 08/30/17 0.025 MG-2.5 MG] Pantoprazole Sodium [Protonix] 40 mg PO DAILY #30 tablet. 08/30/17 Acetaminophen [Tylenol 325mg tab] 975 mg PO TID #20 tab 09/26/17 Clindamycin [Cleocin] 300 mg PO TID 7 Days #21 cap 09/26/17 Ammonium Lactate 12% [Lac-Hydrin 1 mg TP DAILY #1 tube 11/18/17 12% Cream (140 g)] Acetaminophen [Acetaminophen Extra 2 tab PO Q6 PRN #24 tablet 11/23/17 Strength] Ibuprofen [Motrin] 600 mg PO Q8 PRN #21 tab 11/23/17 Oseltamivir Phosphate [Tamiflu] 75 mg PO BID #9 capsule 11/23/17 Pseudoephedrine [Sudafed Tab] 60 mg PO Q6 PRN #24 tab 11/23/17 Oseltamivir [Tamiflu] 75 mg PO BID #10 cap 12/13/17 Naproxen [Naprosyn] 500 mg PO BID PRN #14 tab 01/15/18 Famotidine [Pepcid] 20 mg PO Q12 #20 tab 02/10/18 Ondansetron [Zofran] 4 mg PO Q8H #10 tab 02/10/18 - Allergies Allergies/Adverse Reactions: Allergies Allergy/AdvReac Type Severity Reaction Status Date / Time Penicillins Allergy RASH Verified 02/10/18 17:36 pineapple Allergy SWELLING Verified 02/10/18 17:36 Review of Systems Constitutional: Positive for: Fever Gastrointestinal: Positive for: Nausea, Vomiting (no blood present), Abdominal Pain (upper), Diarrhea Physical Exam - Reviewed Nursing Documentation Reviewed: Yes Vital Signs Reviewed: Yes - Physical Exam Appears: Positive for: No Acute Distress Head Exam: Positive for: ATRAUMATIC, NORMAL INSPECTION, NORMOCEPHALIC Skin: Positive for: Normal Color, Warm, Dry Eye Exam: Positive for: EOMI, Normal appearance, PERRL ENT: Positive for: Other (mucous membranes dry). Negative for: Pharyngeal Erythema, Tonsillar Swelling Neck: Positive for: Normal, Painless ROM Cardiovascular/Chest: Positive for: Regular Rate, Rhythm. Negative for: Murmur Respiratory: Positive for: Normal Breath Sounds. Negative for: Accessory Muscle Use, Wheezing, Respiratory Distress Gastrointestinal/Abdominal: Positive for: Tenderness (mild epigastric). Negative for: Guarding, Rebound Back: Positive for: Normal Inspection Extremity: Positive for: Normal ROM. Negative for: Tenderness, Swelling Neurologic/Psych: Positive for: Alert, Oriented (x3) - Laboratory Results Result Diagrams: 02/10/18 18:13 02/10/18 18:13 - ECG O2 Sat by Pulse Oximetry: 98 (RA) Pulse Ox Interpretation: Normal - Progress Re-evaluation Time: 21:19 Condition: Improved (Tolerated PO) Medical Decision Making Medical Decision Making: Initial Impression: Epigastric tenderness Time: 18:05 Plan: --Sodium chloride 0.9% 1,000 ml IV --Pepcid 20mg IVP --Zofran 4mg PO --ED Urine dipstick --ED Urine --CMP --LIPASE --CBC with differential Scribe Attestation: Documented by Ashley Bal, acting as a scribe for Giovanni Enrique MD Provider Scribe Attestation: All medical entries made by the Scribe were at my direction and personally dictated by me. I have reviewed the chart and agree that the record accurately reflects my personal performance of the history, physical exam, medical decision making, and the department course for this patient. I have also personally directed, reviewed, and agree with the discharge instructions and disposition. Disposition - Clinical Impression Clinical Impression: Gastroenteritis - Patient ED Disposition Is Patient to be Admitted: No Counseled Patient/Family Regarding: Studies Performed, Diagnosis, Need For Followup, Rx Given - Disposition Referrals: [facility] [Outside] Disposition: Routine/Home Disposition Time: 21:20 Condition: FAIR Prescriptions: Famotidine [Pepcid] 20 mg PO Q12 #20 tab Ondansetron [Zofran] 4 mg PO Q8H #10 tab Instructions: Viral Gastroenteritis Forms: [facility] (Sri Lankan)
[2018-02-10 18:21] LABS: BASO % 0.4 % (0.0-2.0); EOS # 0.1 K/uL (0.0-0.7); EOS % 1.1 % (0.0-4.0); HEMOGLOBIN 13.9 g/dL (12.0-16.0); LYMPH % 9.7 % (20.0-40.0); MEAN CELL VOLUME 83.5 fl (81.0-99.0); MEAN CORPUSCULAR HEMOGLOBIN 27.6 pg (27.0-31.0); MEAN CORPUSCULAR HGB CONC 33.1 g/dL (33.0-37.0); MEAN PLATELET VOLUME 10.3 fl (7.2-11.7); MONO # 0.5 K/uL (0.0-0.8); NEUT % 83.8 % (50.0-75.0); NRBC % 0.1 % (0.0-0.0); PLATELET COUNT 218 K/uL (130-400); RBC 5.03 Mil/uL (3.80-5.20); RED CELL DISTRIBUTION WIDTH 13.3 % (11.5-14.5); WHITE BLOOD COUNT 10.7 K/uL (4.8-10.8)
[2018-02-10 18:30] LABS: CALCIUM 9.2 mg/dL (8.4-10.2); GFR AFRICAN-AMERICAN > 60; GFR NON-AFRICAN AMERICAN > 60; LIPASE 86 U/L (23-300)
[2018-02-10 18:31] LABS: ALB/GLOB RATIO 1.1 (1.0-2.1); ALBUMIN 4.4 g/dL (3.5-5.0); ALT/SGPT 42 U/L (9-52); AST/SGOT 45 U/L (14-36); BLOOD UREA NITROGEN 11 mg/dl (7-17)
[2018-02-10 21:20] LABS: ANISOCYTOSIS SLIGHT; EOSINOPHIL 3 % (0-7); LYMPHOCYTE 10 % (20-50); MONOCYTE 4 % (0-10); NEUTROPHIL 83 % (42-75); PLATELET ESTIMATE NORMAL (NORMAL); TEARDROP CELLS SLIGHT; TOTAL CELLS COUNTED 100
[2018-02-10 21:21] LABS: LARGE PLATELETS PRESENT
[2018-02-10 21:27] VITALS: BP 109/65; PULSE 86; RESP 16; TEMP 98.6
== END 2018-02-10 21:32 | disposition home or self-care (01) ==
LOC: H.ER 17:27
DX: K52.9 Noninfective gastroenteritis and colitis, unspecified (principal); Z88.0 Allergy status to penicillin
CPT/HCPCS: 80053; 83690; 85025; 96374; 99284; J7040

== ENCOUNTER 2018-02-14 08:01 | Emergency (ER) | payer OTHER ==
[2018-02-14 08:11] VITALS: BMI 49.2
[2018-02-14 09:08] LABS: SQUAMOUS EPITHIAL 3 /hpf (0-5); URINE BACTERIA RARE (<OCC); URINE BILIRUBIN NEGATIVE (NEGATIVE); URINE BLOOD SMALL (NEGATIVE); URINE CLARITY CLOUDY (Clear); URINE COLOR YELLOW (YELLOW); URINE GLUCOSE (UA) NEG (Normal); URINE LEUKOCYTE ESTERASE TRACE Leu/uL (Negative); URINE PROTEIN NEGATIVE (NEGATIVE); URINE UROBILINOGEN 0.2-1.0 mg/dL (0.2-1.0)
[2018-02-14 09:12] LABS: BASO % 0.5 % (0.0-2.0); EOS # 0.2 K/uL (0.0-0.7); EOS % 2.8 % (0.0-4.0); HEMOGLOBIN 13.1 g/dL (12.0-16.0); LYMPH # 1.8 K/uL (1.0-4.3); LYMPH % 23.1 % (20.0-40.0); MEAN CELL VOLUME 82.9 fl (81.0-99.0); MEAN CORPUSCULAR HEMOGLOBIN 27.7 pg (27.0-31.0); MEAN CORPUSCULAR HGB CONC 33.4 g/dL (33.0-37.0); MEAN PLATELET VOLUME 10.8 fl (7.2-11.7); MONO # 0.7 K/uL (0.0-0.8); MONO % 8.9 % (0.0-10.0); NEUT # 5.1 K/uL (1.8-7.0); NEUT % 64.7 % (50.0-75.0); NRBC % 0.5 % (0.0-0.0); RBC 4.75 Mil/uL (3.80-5.20); RED CELL DISTRIBUTION WIDTH 13.5 % (11.5-14.5); WHITE BLOOD COUNT 7.9 K/uL (4.8-10.8)
[2018-02-14 09:20] LABS: ALB/GLOB RATIO 1.2 (1.0-2.1); ALBUMIN 4.1 g/dL (3.5-5.0); ALT/SGPT 54 U/L (9-52); AST/SGOT 35 U/L (14-36); BLOOD UREA NITROGEN 10 mg/dl (7-17); CALCIUM 9.6 mg/dL (8.4-10.2); GFR AFRICAN-AMERICAN > 60; GFR NON-AFRICAN AMERICAN > 60; LIPASE 75 U/L (23-300)
--- NOTE | 2018-02-14 09:30 | ED PDOC ---
HPI: Abdomen Time Seen by Provider: 02/14/18 08:18 Chief Complaint (Nursing): Abdominal Pain Chief Complaint (Provider): Abdominal pain History Per: Patient History/Exam Limitations: no limitations Onset/Duration Of Symptoms: Days (x1 week) Current Symptoms Are (Timing): Still Present Quality Of Discomfort: Burning Associated Symptoms: Diarrhea (loose stools). denies: Fever, Chills, Vomiting, Chest Pain Additional Complaint(s): Malini Bragg is a 22 year old female, with a past medical history of gastritis, who presents to the emergency department complaining of upper abdominal burning and dyspepsia especially after eating, ongoing for x1 week. Patient was seen here on 02/10/18 and diagnosed with gastritis, she was discharged with Pepcid which she is only taking with symptoms. She reports loose stools but denies any vomiting, fever, chills, shortness of breath or chest pain. No further medical complaints. PMD: None provided. Past Medical History Reviewed: Historical Data, Nursing Documentation, Vital Signs Vital Signs: Last Vital Signs Temp 98.2 F 02/14/18 12:12 Pulse 63 02/14/18 12:12 Resp 16 02/14/18 12:12 BP 132/77 02/14/18 12:12 Pulse Ox 100 02/14/18 12:12 - Medical History PMH: Gastritis, Migraine Denies: Chronic Kidney Disease - Surgical History Surgical History: Tonsillectomy (and adenoidectomy) - Family History Family History: States: Unknown Family Hx - Social History Current smoker - smoking cessation education provided: No Alcohol: None Drugs: Denies - Home Medications Home Medications: Ambulatory Orders Medication Instructions Recorded Famotidine [Pepcid] 20 mg PO BID #20 tab 12/26/16 Ibuprofen [Motrin] 600 mg PO Q6H PRN #20 tab 12/26/16 Nitrofurantoin Macrocrystals 100 mg PO BID #14 cap 12/26/16 [Macrobid] Ondansetron [Zofran Odt] 4 mg PO Q8H PRN #15 odt 12/26/16 traMADol [Ultram] 50 mg PO Q6H PRN #15 tab 01/21/17 Ibuprofen [Motrin] 600 mg PO Q6H PRN #20 tab 07/12/17 Albuterol HFA [Ventolin HFA 90 1 - 2 puff IH Q4H PRN #1 bottle 07/18/17 mcg/actuation (8 g)] Azithromycin [Zithromax] 250 mg PO DAILY #6 tab 07/26/17 Benzonatate [Tessalon Perle] 100 mg PO Q8 PRN #30 capsule 07/26/17 Ibuprofen [Motrin Tab] 600 mg PO Q6 PRN #15 tab 08/09/17 Calamine/Pramoxine [Caladryl] 180 ml EXT PRN PRN #1 bottle 08/11/17 DiphenhydrAMINE [Benadryl] 1 - 2 tab PO Q6 PRN #24 cap 08/11/17 Hydrocortisone 0.5% CREAM 0.5 gm TOP BID PRN #1 tube 08/11/17 [Cortizone 0.5% CREAM] Prednisone 50 mg PO DAILY #3 tablet 08/11/17 Atropine/Diphenoxylate [Lonox 1 tab PO Q8 #10 tab 08/30/17 0.025 MG-2.5 MG] Pantoprazole Sodium [Protonix] 40 mg PO DAILY #30 tablet. 08/30/17 Acetaminophen [Tylenol 325mg tab] 975 mg PO TID #20 tab 09/26/17 Clindamycin [Cleocin] 300 mg PO TID 7 Days #21 cap 09/26/17 Ammonium Lactate 12% [Lac-Hydrin 1 mg TP DAILY #1 tube 11/18/17 12% Cream (140 g)] Acetaminophen [Acetaminophen Extra 2 tab PO Q6 PRN #24 tablet 11/23/17 Strength] Ibuprofen [Motrin] 600 mg PO Q8 PRN #21 tab 11/23/17 Oseltamivir Phosphate [Tamiflu] 75 mg PO BID #9 capsule 11/23/17 Pseudoephedrine [Sudafed Tab] 60 mg PO Q6 PRN #24 tab 11/23/17 Oseltamivir [Tamiflu] 75 mg PO BID #10 cap 12/13/17 Naproxen [Naprosyn] 500 mg PO BID PRN #14 tab 01/15/18 Famotidine [Pepcid] 20 mg PO Q12 #20 tab 02/10/18 Ondansetron [Zofran] 4 mg PO Q8H #10 tab 02/10/18 Ranitidine HCl [Zantac] 150 mg PO BID #20 tablet 02/14/18 - Allergies Allergies/Adverse Reactions: Allergies Allergy/AdvReac Type Severity Reaction Status Date / Time Penicillins Allergy RASH Verified 02/14/18 08:14 pineapple Allergy SWELLING Verified 02/14/18 08:14 Review of Systems ROS Statement: Except As Marked, All Systems Reviewed And Found Negative Constitutional: Negative for: Fever, Chills Cardiovascular: Negative for: Chest Pain Respiratory: Negative for: Shortness of Breath Gastrointestinal: Positive for: Abdominal Pain, Diarrhea. Negative for: Vomiting Physical Exam - Reviewed Nursing Documentation Reviewed: Yes Vital Signs Reviewed: Yes - Physical Exam Appears: Positive for: Non-toxic, No Acute Distress Head Exam: Positive for: ATRAUMATIC, NORMOCEPHALIC Skin: Positive for: Normal Color, Warm, Dry Eye Exam: Positive for: Normal appearance, EOMI, PERRL Neck: Positive for: Painless ROM, Supple Cardiovascular/Chest: Positive for: Regular Rate, Rhythm. Negative for: Murmur Respiratory: Positive for: Normal Breath Sounds. Negative for: Respiratory Distress Gastrointestinal/Abdominal: Positive for: Tenderness (mild epigastric. No lower abdominal tenderness), Other (obese) Back: Positive for: Normal Inspection. Negative for: L CVA Tenderness, R CVA Tenderness, Vertebral Tenderness Extremity: Positive for: Normal ROM (all extremities). Negative for: Deformity , Swelling Neurologic/Psych: Positive for: Alert, Oriented. Negative for: Motor/Sensory Deficits - Laboratory Results Result Diagrams: 02/14/18 08:45 02/14/18 08:45 - ECG O2 Sat by Pulse Oximetry: 98 (RA) Pulse Ox Interpretation: Normal Medical Decision Making Medical Decision Making: Initial Impression: gastritis Initial Plan: --CMP --Lipase --CBC w/ differential --Pepcid 20 mg IV --Urinalysis --Abdomen Limited [US] --Reevaluation 10:56 Abdomen US FINDINGS: LIVER: Enlarged, measuring 19.0 cm in length. Increased echogenicity of the liver parenchyma. No mass. No intrahepatic bile duct dilatation. GALLBLADDER: Minimal tumefactive sludge. No wall thickening or pericholecystic fluid. Sonographic Mcleod's sign was not elicited. COMMON BILE DUCT: Measures 4 mm. No stones. No dilatation. PANCREAS: Not well-visualized. RIGHT KIDNEY: Measures 11.6 x 6.0 x 4.2 cm in length. Normal echogenicity. No calculus, mass, or hydronephrosis. AORTA: No aneurysmal dilatation. IVC: Unremarkable. OTHER FINDINGS: None . IMPRESSION: Hepatomegaly with steatosis. Minimal gallbladder sludge without sonographic evidence for acute cholecystitis. Scribe Attestation: Documented by Ilya Denis, acting as a scribe for Bakari Bullock MD Provider Scribe Attestation: All medical record entries made by the Scribe were at my direction and personally dictated by me. I have reviewed the chart and agree that the record accurately reflects my personal performance of the history, physical exam, medical decision making, and the department course for this patient. I have also personally directed, reviewed, and agree with the discharge instructions and disposition. Disposition - Clinical Impression Clinical Impression: Gastritis - Patient ED Disposition Is Patient to be Admitted: No Counseled Patient/Family Regarding: Studies Performed, Diagnosis, Need For Followup, Rx Given - Disposition Referrals: Khanh Paulino MD [Staff Provider] - Disposition: Routine/Home Disposition Time: 11:30 Condition: STABLE Additional Instructions: See GI doctor for further testing. Take medication as directed, even if you are feeling better. Return to ER for any worse or new symptoms. Prescriptions: Ranitidine HCl [Zantac] 150 mg PO BID #20 tablet Instructions: Gastritis (DC) Forms: [employer] (Romanian)
--- NOTE | 2018-02-14 10:58 | US ---
HISTORY: RUQ and epigastric pain COMPARISON: Correlation is made to CT scan of the abdomen pelvis dated 08/30/2017. TECHNIQUE: Sonographic evaluation of the right upper quadrant of the abdomen. FINDINGS: LIVER: Enlarged, measuring 19.0 cm in length. Increased echogenicity of the liver parenchyma. No mass. No intrahepatic bile duct dilatation. GALLBLADDER: Minimal tumefactive sludge. No wall thickening or pericholecystic fluid. Sonographic Mcleod's sign was not elicited. COMMON BILE DUCT: Measures 4 mm. No stones. No dilatation. PANCREAS: Not well-visualized. RIGHT KIDNEY: Measures 11.6 x 6.0 x 4.2 cm in length. Normal echogenicity. No calculus, mass, or hydronephrosis. AORTA: No aneurysmal dilatation. IVC: Unremarkable. OTHER FINDINGS: None . IMPRESSION: Hepatomegaly with steatosis. Minimal gallbladder sludge without sonographic evidence for acute cholecystitis.
[2018-02-14 12:11] VITALS: BP 132/77; PULSE 63; RESP 16; TEMP 98.2
[2018-02-16 14:25] VITALS: O2SAT 98
== END 2018-02-14 12:14 | disposition home or self-care (01) ==
LOC: H.ER 08:01
DX: K29.70 Gastritis, unspecified, without bleeding (principal); Z88.0 Allergy status to penicillin

== ENCOUNTER 2018-04-06 17:59 | Emergency (ER) | payer OTHER ==
[2018-04-06 17:59] VITALS: BMI 49.2
[2018-04-06 18:05] VITALS: BP 126/79; PULSE 106; RESP 16; TEMP 98.3; O2SAT 99
--- NOTE | 2018-04-06 18:26 | ED PDOC ---
Lower Extremity Pain/Injury Time Seen by Provider: 04/06/18 18:06 Chief Complaint (Nursing): Lower Extremity Problem/Injury Chief Complaint (Provider): left foot pain History Per: Patient History/Exam Limitations: no limitations Onset/Duration Of Symptoms: Days (months) Current Symptoms Are (Timing): Still Present Additional Complaint(s): Malini Bragg is a 22 year old female, with no significant past medical history, who presents to the emergency department complaining of left foot pain onset for months. Patient reports she was recently seen by digital sales planner who ordered orthotics. Patient states she has been evaluated here for this pain in the past, however the pain has been too severe prompting ED visit today. Patient states can't wear shoes due to pain. She denies any fever, chills or other medical complaints. PMD: None provided. Past Medical History Reviewed: Historical Data, Nursing Documentation, Vital Signs Vital Signs: Last Vital Signs Temp 98.3 F 04/06/18 18:03 Pulse 106 H 04/06/18 18:03 Resp 16 04/06/18 18:03 BP 126/79 04/06/18 18:03 Pulse Ox 99 04/06/18 18:03 - Medical History PMH: Gastritis, Migraine Denies: Chronic Kidney Disease - Surgical History Surgical History: Tonsillectomy (and adenoidectomy) - Family History Family History: States: Unknown Family Hx - Home Medications Home Medications: Ambulatory Orders Medication Instructions Recorded Famotidine [Pepcid] 20 mg PO BID #20 tab 12/26/16 Ibuprofen [Motrin] 600 mg PO Q6H PRN #20 tab 12/26/16 Nitrofurantoin Macrocrystals 100 mg PO BID #14 cap 12/26/16 [Macrobid] Ondansetron [Zofran Odt] 4 mg PO Q8H PRN #15 odt 12/26/16 traMADol [Ultram] 50 mg PO Q6H PRN #15 tab 01/21/17 Ibuprofen [Motrin] 600 mg PO Q6H PRN #20 tab 07/12/17 Albuterol HFA [Ventolin HFA 90 1 - 2 puff IH Q4H PRN #1 bottle 07/18/17 mcg/actuation (8 g)] Azithromycin [Zithromax] 250 mg PO DAILY #6 tab 07/26/17 Benzonatate [Tessalon Perle] 100 mg PO Q8 PRN #30 capsule 07/26/17 Ibuprofen [Motrin Tab] 600 mg PO Q6 PRN #15 tab 08/09/17 Calamine/Pramoxine [Caladryl] 180 ml EXT PRN PRN #1 bottle 08/11/17 DiphenhydrAMINE [Benadryl] 1 - 2 tab PO Q6 PRN #24 cap 08/11/17 Hydrocortisone 0.5% CREAM 0.5 gm TOP BID PRN #1 tube 08/11/17 [Cortizone 0.5% CREAM] Prednisone 50 mg PO DAILY #3 tablet 08/11/17 Atropine/Diphenoxylate [Lonox 1 tab PO Q8 #10 tab 08/30/17 0.025 MG-2.5 MG] Pantoprazole Sodium [Protonix] 40 mg PO DAILY #30 tablet. 08/30/17 Acetaminophen [Tylenol 325mg tab] 975 mg PO TID #20 tab 09/26/17 Clindamycin [Cleocin] 300 mg PO TID 7 Days #21 cap 09/26/17 Ammonium Lactate 12% [Lac-Hydrin 1 mg TP DAILY #1 tube 11/18/17 12% Cream (140 g)] Acetaminophen [Acetaminophen Extra 2 tab PO Q6 PRN #24 tablet 11/23/17 Strength] Ibuprofen [Motrin] 600 mg PO Q8 PRN #21 tab 11/23/17 Oseltamivir Phosphate [Tamiflu] 75 mg PO BID #9 capsule 11/23/17 Pseudoephedrine [Sudafed Tab] 60 mg PO Q6 PRN #24 tab 11/23/17 Oseltamivir [Tamiflu] 75 mg PO BID #10 cap 12/13/17 Naproxen [Naprosyn] 500 mg PO BID PRN #14 tab 01/15/18 Famotidine [Pepcid] 20 mg PO Q12 #20 tab 02/10/18 Ondansetron [Zofran] 4 mg PO Q8H #10 tab 02/10/18 Ranitidine HCl [Zantac] 150 mg PO BID #20 tablet 02/14/18 traMADol [Ultram] 50 mg PO Q6H PRN #15 tab 04/06/18 - Allergies Allergies/Adverse Reactions: Allergies Allergy/AdvReac Type Severity Reaction Status Date / Time Penicillins Allergy RASH Verified 02/14/18 08:14 pineapple Allergy SWELLING Verified 02/14/18 08:14 Review of Systems ROS Statement: Except As Marked, All Systems Reviewed And Found Negative Constitutional: Negative for: Fever, Chills Musculoskeletal: Positive for: Foot Pain (left) Physical Exam - Reviewed Nursing Documentation Reviewed: Yes Vital Signs Reviewed: Yes - Physical Exam Appears: Positive for: Non-toxic, No Acute Distress Head Exam: Positive for: ATRAUMATIC, NORMOCEPHALIC Skin: Positive for: Normal Color, Warm, Dry Eye Exam: Positive for: Normal appearance, EOMI, PERRL Neck: Positive for: Painless ROM Respiratory: Negative for: Respiratory Distress Extremity: Positive for: Normal ROM (upper and lower extremities), Tenderness ( left lateral foot). Negative for: Deformity, Swelling Neurologic/Psych: Positive for: Alert, Oriented. Negative for: Motor/Sensory Deficits - ECG O2 Sat by Pulse Oximetry: 99 (RA) Pulse Ox Interpretation: Normal Medical Decision Making Medical Decision Making: Time: 18:06 Initial Impression: Foot pain Initial Plan: 18:24 Upon provider evaluation patient is medically stable, and requires no further treatment in the ED at this time. Patient will be discharged home with Rx for ultra. Counseling was provided and all questions were answered regarding diagnosis and need for follow up with digital sales planner. There is agreement to discharge plan. Return if symptoms persist or worsen. Scribe Attestation: Documented by Ilya Denis, acting as a scribe for Hina Hurtado PA-C Provider Scribe Attestation: All medical record entries made by the Scribe were at my direction and personally dictated by me. I have reviewed the chart and agree that the record accurately reflects my personal performance of the history, physical exam, medical decision making, and the department course for this patient. I have also personally directed, reviewed, and agree with the discharge instructions and disposition. Disposition - Clinical Impression Clinical Impression: Left foot pain - Patient ED Disposition Is Patient to be Admitted: No Counseled Patient/Family Regarding: Diagnosis, Need For Followup, Rx Given - Disposition Referrals: Jose Liu DPM [Staff Provider] - Disposition: Routine/Home Disposition Time: 18:24 Condition: STABLE Prescriptions: traMADol [Ultram] 50 mg PO Q6H PRN #15 tab PRN Reason: Pain Instructions: Plantar Fasciitis Exercises Forms: [facility] (Japanese)
== END 2018-04-06 18:47 | disposition home or self-care (01) ==
LOC: H.ER 17:59
DX: M79.672 Pain in left foot (principal); Z88.0 Allergy status to penicillin

== ENCOUNTER 2018-04-30 18:22 | Emergency (ER) | payer OTHER ==
[2018-04-30 18:22] VITALS: BMI 49.2
[2018-04-30 18:54] VITALS: RESP 18; TEMP 98.6
[2018-04-30] MEDS ORDERED: Sodium Chloride 0.9% 1,000 ML IV STA (19:06)
--- NOTE | 2018-04-30 19:11 | ED PDOC ---
HPI: General Adult Time Seen by Provider: 04/30/18 18:58 Chief Complaint (Nursing): Back Pain Chief Complaint (Provider): Body aches History Per: Patient History/Exam Limitations: no limitations Onset/Duration Of Symptoms: Days (today) Additional Complaint(s): Pt. with body aches. No nausea, vomit, diarrhea, weakness, headaches, dizziness , abd pain, chest pain, dyspnea, cough. Has been outside for 2 days for long hours doing different activities. Past Medical History Reviewed: Nursing Documentation, Vital Signs Vital Signs: Last Vital Signs Temp 98.6 F 04/30/18 18:50 Pulse 79 04/30/18 18:50 Resp 18 04/30/18 18:50 BP 111/63 04/30/18 18:50 Pulse Ox 98 04/30/18 19:15 - Medical History PMH: Gastritis, Migraine, Chronic Pain (foot) Denies: Chronic Kidney Disease - Surgical History Surgical History: Tonsillectomy (and adenoidectomy) - Family History Family History: States: Unknown Family Hx - Home Medications Home Medications: Ambulatory Orders Medication Instructions Recorded Famotidine [Pepcid] 20 mg PO BID #20 tab 12/26/16 Ibuprofen [Motrin] 600 mg PO Q6H PRN #20 tab 12/26/16 Nitrofurantoin Macrocrystals 100 mg PO BID #14 cap 12/26/16 [Macrobid] Ondansetron [Zofran Odt] 4 mg PO Q8H PRN #15 odt 12/26/16 traMADol [Ultram] 50 mg PO Q6H PRN #15 tab 01/21/17 Ibuprofen [Motrin] 600 mg PO Q6H PRN #20 tab 07/12/17 Albuterol HFA [Ventolin HFA 90 1 - 2 puff IH Q4H PRN #1 bottle 07/18/17 mcg/actuation (8 g)] Azithromycin [Zithromax] 250 mg PO DAILY #6 tab 07/26/17 Benzonatate [Tessalon Perle] 100 mg PO Q8 PRN #30 capsule 07/26/17 Ibuprofen [Motrin Tab] 600 mg PO Q6 PRN #15 tab 08/09/17 Calamine/Pramoxine [Caladryl] 180 ml EXT PRN PRN #1 bottle 08/11/17 DiphenhydrAMINE [Benadryl] 1 - 2 tab PO Q6 PRN #24 cap 08/11/17 Hydrocortisone 0.5% CREAM 0.5 gm TOP BID PRN #1 tube 08/11/17 [Cortizone 0.5% CREAM] Prednisone 50 mg PO DAILY #3 tablet 08/11/17 Atropine/Diphenoxylate [Lonox 1 tab PO Q8 #10 tab 08/30/17 0.025 MG-2.5 MG] Pantoprazole Sodium [Protonix] 40 mg PO DAILY #30 tablet.dr 08/30/17 Acetaminophen [Tylenol 325mg tab] 975 mg PO TID #20 tab 09/26/17 Clindamycin [Cleocin] 300 mg PO TID 7 Days #21 cap 09/26/17 Ammonium Lactate 12% [Lac-Hydrin 1 mg TP DAILY #1 tube 11/18/17 12% Cream (140 g)] Acetaminophen [Acetaminophen Extra 2 tab PO Q6 PRN #24 tablet 11/23/17 Strength] Ibuprofen [Motrin] 600 mg PO Q8 PRN #21 tab 11/23/17 Oseltamivir Phosphate [Tamiflu] 75 mg PO BID #9 capsule 11/23/17 Pseudoephedrine [Sudafed Tab] 60 mg PO Q6 PRN #24 tab 11/23/17 Oseltamivir [Tamiflu] 75 mg PO BID #10 cap 12/13/17 Naproxen [Naprosyn] 500 mg PO BID PRN #14 tab 01/15/18 Famotidine [Pepcid] 20 mg PO Q12 #20 tab 02/10/18 Ondansetron [Zofran] 4 mg PO Q8H #10 tab 02/10/18 Ranitidine HCl [Zantac] 150 mg PO BID #20 tablet 02/14/18 traMADol [Ultram] 50 mg PO Q6H PRN #15 tab 04/06/18 Ciprofloxacin HCl [Cipro] 250 mg PO BID #6 tab 04/30/18 Ibuprofen [Motrin] 600 mg PO TID 7 Days tab 04/30/18 traMADol [Ultram] 50 mg PO DAILY PRN 3 Days tab 04/30/18 - Allergies Allergies/Adverse Reactions: Allergies Allergy/AdvReac Type Severity Reaction Status Date / Time Penicillins Allergy RASH Verified 04/30/18 18:50 pineapple Allergy SWELLING Verified 04/30/18 18:50 Review of Systems ROS Statement: Except As Marked, All Systems Reviewed And Found Negative Musculoskeletal: Positive for: Other (body aches) Physical Exam - Reviewed Nursing Documentation Reviewed: Yes Vital Signs Reviewed: Yes - Physical Exam Appears: Positive for: Non-toxic, No Acute Distress Head Exam: Positive for: ATRAUMATIC, NORMAL INSPECTION, NORMOCEPHALIC Skin: Positive for: Normal Color, Warm, DRY Eye Exam: Positive for: EOMI, Normal appearance, PERRL ENT: Positive for: Normal ENT Inspection Neck: Positive for: Normal, Painless ROM Cardiovascular/Chest: Positive for: Regular Rate, Rhythm Respiratory: Positive for: CNT, Normal Breath Sounds Gastrointestinal/Abdominal: Positive for: Normal Exam, Soft. Negative for: Tenderness Back: Positive for: Normal Inspection. Negative for: L CVA Tenderness, R CVA Tenderness Extremity: Positive for: Normal ROM. 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 Negative for: Motor/Sensory Deficits - Laboratory Results Urine dip results: Positive for: Leukocyte Esterase - ECG O2 Sat by Pulse Oximetry: 98 Pulse Ox Interpretation: Normal - Progress ED Course And Treament: 2037: Some improvement with pain. Will give tramadol. Tolerated PO. Moving all extremities. Possible uti, will tx. Fu with pcp. Jani3. Mom at bedside and agrees with plan. Pt. here multiple times in the past and had requests for strong pain meds. Disposition - Clinical Impression Clinical Impression: UTI (urinary tract infection), Myalgia - Patient ED Disposition Is Patient to be Admitted: No Counseled Patient/Family Regarding: Studies Performed, Diagnosis, Need For Followup, Rx Given - Disposition Referrals: [facility] [Outside] - 05/01/18 Disposition: Routine/Home Disposition Time: 20:42 Condition: STABLE Additional Instructions: Return if not better in 3 days. Prescriptions: Ciprofloxacin HCl [Cipro] 250 mg PO BID #6 tab Ibuprofen [Motrin] 600 mg PO TID 7 Days tab traMADol [Ultram] 50 mg PO DAILY PRN 3 Days tab PRN Reason: Pain, Moderate (4-7) Instructions: Urinary Tract Infection, Adult (DC), Muscle and Bone Pain (DC) Forms: [facility] (Arabic), [facility] ED School/Work Excuse
[2018-04-30 21:17] VITALS: BP 118/63; PULSE 82; O2SAT 97
== END 2018-04-30 21:19 | disposition home or self-care (01) ==
LOC: H.ER 18:22
DX: N39.0 Urinary tract infection, site not specified (principal); Z88.0 Allergy status to penicillin; G89.29 Other chronic pain
CPT/HCPCS: 81025; 96372; 99283; J1885

== ENCOUNTER 2018-06-27 19:59 | Emergency (ER) | payer OTHER ==
[2018-06-27 19:59] VITALS: BMI 49.2
[2018-06-27 20:17] VITALS: BP 118/76; PULSE 89; RESP 18; TEMP 98.4; O2SAT 99
--- NOTE | 2018-06-27 20:26 | ED PDOC ---
Lower Extremity Pain/Injury Time Seen by Provider: 06/27/18 20:55 Chief Complaint (Nursing): Lower Extremity Problem/Injury Chief Complaint (Provider): left foot pain History Per: Patient History/Exam Limitations: no limitations Onset/Duration Of Symptoms: Days (several months), Worse Since (this morning) Current Symptoms Are (Timing): Still Present Additional Complaint(s): Malini Bragg is a 22 year old female, with no significant past medical history, who presents to the emergency department for evaluation of left foot pain ongoing for several months but worse since this morning. Patient states she was stretching this morning when she felt something "rip" on her left foot. Patient reports similar pain in the past and is currently under the care of a custom harvester for the past 2 months. Patient states pain feels worst than usual which prompting ED visit. No meds taken for pain relief. Patient does not know the name of the custom harvester she is seeing. PMD: None Past Medical History Reviewed: Historical Data, Nursing Documentation, Vital Signs Vital Signs: Last Vital Signs Temp 98.4 F 06/27/18 20:15 Pulse 89 06/27/18 20:15 Resp 18 06/27/18 20:15 BP 118/76 06/27/18 20:15 Pulse Ox 99 06/27/18 20:15 - Medical History PMH: Gastritis, Migraine, Chronic Pain (left foot) - Surgical History Surgical History: Tonsillectomy (and adenoidectomy) Other surgeries: left knee surgery - Family History Family History: States: No Known Family Hx - Living Arrangements Living Arrangements: With Family - Social History Current smoker - smoking cessation education provided: No Alcohol: None Drugs: Denies - Home Medications Home Medications: Ambulatory Orders Medication Instructions Recorded Famotidine [Pepcid] 20 mg PO BID #20 tab 12/26/16 Ibuprofen [Motrin] 600 mg PO Q6H PRN #20 tab 12/26/16 Nitrofurantoin Macrocrystals 100 mg PO BID #14 cap 12/26/16 [Macrobid] Ondansetron [Zofran Odt] 4 mg PO Q8H PRN #15 odt 12/26/16 traMADol [Ultram] 50 mg PO Q6H PRN #15 tab 01/21/17 Ibuprofen [Motrin] 600 mg PO Q6H PRN #20 tab 07/12/17 Albuterol HFA [Ventolin HFA 90 1 - 2 puff IH Q4H PRN #1 bottle 07/18/17 mcg/actuation (8 g)] Azithromycin [Zithromax] 250 mg PO DAILY #6 tab 07/26/17 Benzonatate [Tessalon Perle] 100 mg PO Q8 PRN #30 capsule 07/26/17 Ibuprofen [Motrin Tab] 600 mg PO Q6 PRN #15 tab 08/09/17 Calamine/Pramoxine [Caladryl] 180 ml EXT PRN PRN #1 bottle 08/11/17 DiphenhydrAMINE [Benadryl] 1 - 2 tab PO Q6 PRN #24 cap 08/11/17 Hydrocortisone 0.5% CREAM 0.5 gm TOP BID PRN #1 tube 08/11/17 [Cortizone 0.5% CREAM] Prednisone 50 mg PO DAILY #3 tablet 08/11/17 Atropine/Diphenoxylate [Lonox 1 tab PO Q8 #10 tab 08/30/17 0.025 MG-2.5 MG] Pantoprazole Sodium [Protonix] 40 mg PO DAILY #30 tablet. 08/30/17 Acetaminophen [Tylenol 325mg tab] 975 mg PO TID #20 tab 09/26/17 Clindamycin [Cleocin] 300 mg PO TID 7 Days #21 cap 09/26/17 Ammonium Lactate 12% [Lac-Hydrin 1 mg TP DAILY #1 tube 11/18/17 12% Cream (140 g)] Acetaminophen [Acetaminophen Extra 2 tab PO Q6 PRN #24 tablet 11/23/17 Strength] Ibuprofen [Motrin] 600 mg PO Q8 PRN #21 tab 11/23/17 Oseltamivir Phosphate [Tamiflu] 75 mg PO BID #9 capsule 11/23/17 Pseudoephedrine [Sudafed Tab] 60 mg PO Q6 PRN #24 tab 11/23/17 Oseltamivir [Tamiflu] 75 mg PO BID #10 cap 12/13/17 Naproxen [Naprosyn] 500 mg PO BID PRN #14 tab 01/15/18 Famotidine [Pepcid] 20 mg PO Q12 #20 tab 02/10/18 Ondansetron [Zofran] 4 mg PO Q8H #10 tab 02/10/18 Ranitidine HCl [Zantac] 150 mg PO BID #20 tablet 02/14/18 traMADol [Ultram] 50 mg PO Q6H PRN #15 tab 04/06/18 Ciprofloxacin HCl [Cipro] 250 mg PO BID #6 tab 04/30/18 Ibuprofen [Motrin] 600 mg PO TID 7 Days tab 04/30/18 traMADol [Ultram] 50 mg PO DAILY PRN 3 Days tab 04/30/18 Ibuprofen [Motrin Tab] 800 mg PO Q8 PRN #20 tab 06/27/18 - Allergies Allergies/Adverse Reactions: Allergies Allergy/AdvReac Type Severity Reaction Status Date / Time Penicillins Allergy RASH Verified 06/27/18 20:13 pineapple Allergy SWELLING Verified 06/27/18 20:13 Wells Criteria for PE - Wells Criteria for Pulmonary Embolism Clinical Signs and Symptoms of DVT: No P.E is #1 Diagnosis, or Equally Likely: No Heart Rate >100: No Immobilization at least 3 days;Surgery previous 4 weeks: No Previous, objectively diagnosed PE or DVT: No Hemoptysis: No Malignancy w/treatment within 6 months, or palliative: No Total Score: 0 Review of Systems ROS Statement: Except As Marked, All Systems Reviewed And Found Negative Musculoskeletal: Positive for: Foot Pain (left) Physical Exam - Reviewed Nursing Documentation Reviewed: Yes Vital Signs Reviewed: Yes - Physical Exam Appears: Positive for: Well, Non-toxic, No Acute Distress Head Exam: Positive for: NORMAL INSPECTION, NORMOCEPHALIC Skin: Positive for: Normal Color. Negative for: Rash Eye Exam: Positive for: Normal appearance Cardiovascular/Chest: Positive for: Regular Rate, Rhythm Respiratory: Positive for: Normal Breath Sounds. Negative for: Respiratory Distress Extremity: Positive for: Normal ROM (upper and lower extremities), Tenderness ( Mild tenderness to lateral aspect of left foot). Negative for: Deformity Neurologic/Psych: Positive for: Alert, Oriented. Negative for: Motor/Sensory Deficits - Laboratory Results Urine POC: Negative - ECG O2 Sat by Pulse Oximetry: 99 (RA) Pulse Ox Interpretation: Normal - Other Rad X-ray left foot X-Ray: Interpreted by Me, Viewed By Me X-Ray Interpretation: no fx, no dis Medical Decision Making Medical Decision Making: Time: 20:20 Initial Impression: Chronic foot pain Initial Plan: --Urine --Motrin tab 600 mg PO --Foot left 3 views Routine [RAD] --Reevaluation Rx motrin given. Patient was instructed to follow up with custom harvester. Scribe Attestation: Documented by Ilya Denis, acting as a scribe for Darling Duff PA-C Provider Scribe Attestation: All medical record entries made by the Scribe were at my direction and personally dictated by me. I have reviewed the chart and agree that the record accurately reflects my personal performance of the history, physical exam, medical decision making, and the department course for this patient. I have also personally directed, reviewed, and agree with the discharge instructions and disposition. Procedures - Splinting Location: left foot Pre-Made Type: emeterio wrap and ortho shoe Pre-Proc Neuro Vasc Exam: normal Post-Proc Neuro Vasc Exam: normal Disposition - Clinical Impression Clinical Impression: Sprain of left foot - Patient ED Disposition Is Patient to be Admitted: No Counseled Patient/Family Regarding: Studies Performed, Diagnosis, Need For Followup, Rx Given - Disposition Referrals: [facility]iatry Clinic [Outside] Disposition: Routine/Home Disposition Time: 21:00 Condition: STABLE Additional Instructions: Ice, rest and elevate left foot. Take rx meds as directed as needed for pain. Follow up with custom harvester in 1-2 days. Prescriptions: Ibuprofen [Motrin Tab] 800 mg PO Q8 PRN #20 tab PRN Reason: Pain, Moderate (4-7) Instructions: Foot Sprain (DC) Forms: [employer] (V[place]an), [facility] ED School/Work Excuse
--- NOTE | 2018-06-28 11:50 | RAD ---
Date of service: 06/27/2018 PROCEDURE: Left Foot Radiographs. HISTORY: Trauma COMPARISON: 01/15/2018. FINDINGS: BONES: Bone alignment and mineralization are normal. There is no acute displaced fracture or bone destruction. JOINTS: Normal. SOFT TISSUES: There is mild dorsal soft tissue swelling OTHER FINDINGS: None. IMPRESSION: No acute displaced fracture or dislocation.
== END 2018-06-27 22:06 | disposition home or self-care (01) ==
LOC: H.ER 19:59
DX: S93.602A Unspecified sprain of left foot, initial encounter (principal); X50.9XXA Other and unspecified overexertion or strenuous movements or postures, initial encounter; Y92.89 Other specified places as the place of occurrence of the external cause; Z88.0 Allergy status to penicillin; G89.29 Other chronic pain

== ENCOUNTER 2018-07-03 08:24 | Emergency (ER) | payer OTHER ==
[2018-07-03] MEDS ORDERED: Sodium Chloride 0.9% 1,000 ML IV STA (08:55)
--- NOTE | 2018-07-03 08:59 | ED PDOC ---
HPI: Abdomen Time Seen by Provider: 07/03/18 08:51 Chief Complaint (Provider): abdominal pain History Per: Patient History/Exam Limitations: no limitations Onset/Duration Of Symptoms: Hrs (this morning) Current Symptoms Are (Timing): Still Present Location Of Pain/Discomfort: Epigastric Associated Symptoms: Nausea, Diarrhea. denies: Vomiting Additional Complaint(s): Malini Bragg is a 22 year old female, with a past medical history of gastritis, who presents to the emergency department complaining of epigastric pain associated with nausea and diarrhea ongoing since this morning. She denies any fever, chills or vomiting. No further medical complaints. PMD: None provided. Past Medical History Reviewed: Historical Data, Nursing Documentation, Vital Signs Vital Signs: Last Vital Signs Temp 97 F L 07/03/18 08:55 Pulse 84 07/03/18 08:55 Resp 19 07/03/18 08:55 BP 118/73 07/03/18 08:55 Pulse Ox 96 07/03/18 08:55 - Medical History PMH: Gastritis, Migraine, Chronic Pain (left foot) Denies: Chronic Kidney Disease - Surgical History Surgical History: Tonsillectomy (and adenoidectomy) - Family History Family History: States: Unknown Family Hx - Social History Current smoker - smoking cessation education provided: No Alcohol: None Drugs: Denies - Home Medications Home Medications: Ambulatory Orders Medication Instructions Recorded Famotidine [Pepcid] 20 mg PO BID #20 tab 12/26/16 Ibuprofen [Motrin] 600 mg PO Q6H PRN #20 tab 12/26/16 Nitrofurantoin Macrocrystals 100 mg PO BID #14 cap 12/26/16 [Macrobid] Ondansetron [Zofran Odt] 4 mg PO Q8H PRN #15 odt 12/26/16 traMADol [Ultram] 50 mg PO Q6H PRN #15 tab 01/21/17 Ibuprofen [Motrin] 600 mg PO Q6H PRN #20 tab 07/12/17 Albuterol HFA [Ventolin HFA 90 1 - 2 puff IH Q4H PRN #1 bottle 07/18/17 mcg/actuation (8 g)] Azithromycin [Zithromax] 250 mg PO DAILY #6 tab 07/26/17 Benzonatate [Tessalon Perle] 100 mg PO Q8 PRN #30 capsule 07/26/17 Ibuprofen [Motrin Tab] 600 mg PO Q6 PRN #15 tab 08/09/17 Calamine/Pramoxine [Caladryl] 180 ml EXT PRN PRN #1 bottle 08/11/17 DiphenhydrAMINE [Benadryl] 1 - 2 tab PO Q6 PRN #24 cap 08/11/17 Hydrocortisone 0.5% CREAM 0.5 gm TOP BID PRN #1 tube 08/11/17 [Cortizone 0.5% CREAM] Prednisone 50 mg PO DAILY #3 tablet 08/11/17 Atropine/Diphenoxylate [Lonox 1 tab PO Q8 #10 tab 08/30/17 0.025 MG-2.5 MG] Pantoprazole Sodium [Protonix] 40 mg PO DAILY #30 tablet. 08/30/17 Acetaminophen [Tylenol 325mg tab] 975 mg PO TID #20 tab 09/26/17 Clindamycin [Cleocin] 300 mg PO TID 7 Days #21 cap 09/26/17 Ammonium Lactate 12% [Lac-Hydrin 1 mg TP DAILY #1 tube 11/18/17 12% Cream (140 g)] Acetaminophen [Acetaminophen Extra 2 tab PO Q6 PRN #24 tablet 11/23/17 Strength] Ibuprofen [Motrin] 600 mg PO Q8 PRN #21 tab 11/23/17 Oseltamivir Phosphate [Tamiflu] 75 mg PO BID #9 capsule 11/23/17 Pseudoephedrine [Sudafed Tab] 60 mg PO Q6 PRN #24 tab 11/23/17 Oseltamivir [Tamiflu] 75 mg PO BID #10 cap 12/13/17 Naproxen [Naprosyn] 500 mg PO BID PRN #14 tab 01/15/18 Famotidine [Pepcid] 20 mg PO Q12 #20 tab 02/10/18 Ondansetron [Zofran] 4 mg PO Q8H #10 tab 02/10/18 Ranitidine HCl [Zantac] 150 mg PO BID #20 tablet 02/14/18 traMADol [Ultram] 50 mg PO Q6H PRN #15 tab 04/06/18 Ciprofloxacin HCl [Cipro] 250 mg PO BID #6 tab 04/30/18 Ibuprofen [Motrin] 600 mg PO TID 7 Days tab 04/30/18 traMADol [Ultram] 50 mg PO DAILY PRN 3 Days tab 04/30/18 Ibuprofen [Motrin Tab] 800 mg PO Q8 PRN #20 tab 06/27/18 Loperamide [Loperamide HCl] 2 mg PO Q8 #10 cap 07/03/18 Ondansetron [Zofran] 4 mg PO Q8H #10 tab 07/03/18 - Allergies Allergies/Adverse Reactions: Allergies Allergy/AdvReac Type Severity Reaction Status Date / Time Penicillins Allergy RASH Verified 06/27/18 20:13 pineapple Allergy SWELLING Verified 06/27/18 20:13 Review of Systems ROS Statement: Except As Marked, All Systems Reviewed And Found Negative Constitutional: Negative for: Fever, Chills Gastrointestinal: Positive for: Nausea, Abdominal Pain, Diarrhea. Negative for : Vomiting Physical Exam - Reviewed Nursing Documentation Reviewed: Yes Vital Signs Reviewed: Yes - Physical Exam Appears: Positive for: No Acute Distress Head Exam: Positive for: ATRAUMATIC, NORMOCEPHALIC Skin: Positive for: Normal Color, Warm, Dry Eye Exam: Positive for: Normal appearance, EOMI, PERRL Neck: Positive for: Painless ROM Cardiovascular/Chest: Positive for: Regular Rate, Rhythm. Negative for: Murmur Respiratory: Positive for: Normal Breath Sounds. Negative for: Respiratory Distress Gastrointestinal/Abdominal: Positive for: Tenderness (mild epigastric ) Back: Positive for: Normal Inspection Extremity: Positive for: Normal ROM (upper and lower extremities). Negative for : Deformity Neurologic/Psych: Positive for: Alert, Oriented - Laboratory Results Result Diagrams: 07/03/18 09:57 07/03/18 09:57 - Progress Re-evaluation Time: 12:19 Condition: Improved Medical Decision Making Medical Decision Making: Time: 08:51 Initial Plan: --CMP --Urine --Urine dipstick --CBC w/ differential --Sodium Chloride 1,000 ml IV 150 mls/hr --Zofran ODT 4 mg IVP --Reevaluation ----- Scribe Attestation: Documented by Ilya Denis, acting as a scribe for Giovanni Enrique MD. Provider Scribe Attestation: All medical record entries made by the Scribe were at my direction and personally dictated by me. I have reviewed the chart and agree that the record accurately reflects my personal performance of the history, physical exam, medical decision making, and the department course for this patient. I have also personally directed, reviewed, and agree with the discharge instructions and disposition. Disposition - Clinical Impression Clinical Impression: Gastroenteritis - Patient ED Disposition Is Patient to be Admitted: No Counseled Patient/Family Regarding: Studies Performed, Diagnosis, Need For Followup, Rx Given - Disposition Referrals: [facility] [Outside] Disposition: Routine/Home Disposition Time: 12:20 Condition: FAIR Prescriptions: Loperamide [Loperamide HCl] 2 mg PO Q8 #10 cap Ondansetron [Zofran] 4 mg PO Q8H #10 tab Instructions: Gastroenteritis (ED)
[2018-07-03 10:05] LABS: BASO % 0.5 % (0.0-2.0); EOS # 0.1 K/uL (0.0-0.7); EOS % 1.6 % (0.0-4.0); HEMOGLOBIN 12.9 g/dL (12.0-16.0); LYMPH # 1.5 K/uL (1.0-4.3); LYMPH % 24.4 % (20.0-40.0); MEAN CELL VOLUME 82.9 fl (81.0-99.0); MEAN CORPUSCULAR HEMOGLOBIN 26.7 pg (27.0-31.0); MEAN CORPUSCULAR HGB CONC 32.2 g/dL (33.0-37.0); MONO # 0.5 K/uL (0.0-0.8); MONO % 7.5 % (0.0-10.0); NEUT # 4.2 K/uL (1.8-7.0); NRBC % 0.1 % (0.0-0.0); RBC 4.83 Mil/uL (3.80-5.20); RED CELL DISTRIBUTION WIDTH 13.5 % (11.5-14.5); WHITE BLOOD COUNT 6.3 K/uL (4.8-10.8)
[2018-07-03 10:13] LABS: ALB/GLOB RATIO 1.1 (1.0-2.1); ALBUMIN 4.1 g/dL (3.5-5.0); ALT/SGPT 33 U/L (9-52); AST/SGOT 28 U/L (14-36); BLOOD UREA NITROGEN 10 mg/dl (7-17); CALCIUM 9.4 mg/dL (8.4-10.2); GFR NON-AFRICAN AMERICAN > 60
[2018-07-03 12:58] VITALS: BP 124/76; PULSE 78; RESP 18; TEMP 98; O2SAT 100
== END 2018-07-03 12:58 | disposition home or self-care (01) ==
LOC: H.ER 08:24
DX: K52.9 Noninfective gastroenteritis and colitis, unspecified (principal); G89.29 Other chronic pain; Z88.0 Allergy status to penicillin
CPT/HCPCS: 80053; 81025; 85025; 96374; 99283; J2405; J7030

== ENCOUNTER 2018-07-09 17:57 | Inpatient (IN) | payer OTHER ==
--- NOTE | 2018-07-09 18:25 | ED PDOC ---
HPI:STROKE - Historian Historian: Patient - Chief Complaint Chief Complaint: Weakness - Onset Date: 07/09/18 Time: 17:40 - Notes: Notes:: 22 year old female with no significant past medical history presents to the ED for left sided weakness. Patient reports she finished eating 45 minutes ago when she started feeling chest pain, shortness of breath and left upper and lower extremity weakness. PMD: Dr. Marroquin NIHSS Stroke Scale - Date/Time Evaluation Performed Date Performed: 07/09/18 Time Performed: 18:25 When Was NIHSS Performed: Code Stroke - How Severe is the Stroke Level of Consciousness: 0=Alert LOC to Questions: 0=Both comments correct LOC to commands: 0=Obeys both correctly Best Gaze: 0=Normal Visual: 0=No visual loss Facial: 0=Normal Motor Arm - Left: 2=Falls before 10 sec Motor Arm - Right: 0=No drift Motor Leg - Left: 0=No drift Motor Leg - Right: 3=No effort against gravity (falls immediately) Limb Ataxia: 0=Absent Sensory: 1=Mild to moderate loss Best Language: 0=No aphasia Dysarthia: 0=Normal articulation Extinction & Inattention (Neglect): 0=Normal, no object Score: 6 Severity Of Stroke: 5-15 = Moderate Stroke rTPA Inclusion/Exclusion - Refusal of Treatment Patient Refused Treatment: No - Inclusion Criteria for Altepase Patient is 18 years or Older: Yes The Clinical Diagnosis of Ischemic Stroke That is Causing a Potentially Disabling Neurological Deficit: Yes Time of Onset is Well Established to be Less Than 270 Minute Before Treatment Would Begin: Yes Risk/Benefit Discussed With Patient/Family Member Present: Yes Past Medical History Reviewed: Historical Data, Nursing Documentation, Vital Signs Vital Signs: Last Vital Signs Temp 99.1 F 07/09/18 18:00 Pulse 97 H 07/09/18 18:00 Resp 20 07/09/18 18:00 BP 131/91 H 07/09/18 18:00 Pulse Ox 98 07/09/18 18:00 - Medical History PMH: Gastritis, Migraine, Chronic Pain (left foot) Denies: Chronic Kidney Disease - Surgical History Surgical History: Tonsillectomy (and adenoidectomy) - Family History Family History: States: Unknown Family Hx - Social History Current smoker - smoking cessation education provided: No Ex-Smoker (has not smoked in the last 12 months): No - Home Medications Home Medications: Ambulatory Orders Medication Instructions Recorded Famotidine [Pepcid] 20 mg PO BID #20 tab 12/26/16 Ibuprofen [Motrin] 600 mg PO Q6H PRN #20 tab 12/26/16 Nitrofurantoin Macrocrystals 100 mg PO BID #14 cap 12/26/16 [Macrobid] Ondansetron [Zofran Odt] 4 mg PO Q8H PRN #15 odt 12/26/16 traMADol [Ultram] 50 mg PO Q6H PRN #15 tab 01/21/17 Ibuprofen [Motrin] 600 mg PO Q6H PRN #20 tab 07/12/17 Albuterol HFA [Ventolin HFA 90 1 - 2 puff IH Q4H PRN #1 bottle 07/18/17 mcg/actuation (8 g)] Azithromycin [Zithromax] 250 mg PO DAILY #6 tab 07/26/17 Benzonatate [Tessalon Perle] 100 mg PO Q8 PRN #30 capsule 07/26/17 Ibuprofen [Motrin Tab] 600 mg PO Q6 PRN #15 tab 08/09/17 Calamine/Pramoxine [Caladryl] 180 ml EXT PRN PRN #1 bottle 08/11/17 DiphenhydrAMINE [Benadryl] 1 - 2 tab PO Q6 PRN #24 cap 08/11/17 Hydrocortisone 0.5% CREAM 0.5 gm TOP BID PRN #1 tube 08/11/17 [Cortizone 0.5% CREAM] Prednisone 50 mg PO DAILY #3 tablet 08/11/17 Atropine/Diphenoxylate [Lonox 1 tab PO Q8 #10 tab 08/30/17 0.025 MG-2.5 MG] Pantoprazole Sodium [Protonix] 40 mg PO DAILY #30 tablet.dr 08/30/17 Acetaminophen [Tylenol 325mg tab] 975 mg PO TID #20 tab 09/26/17 Clindamycin [Cleocin] 300 mg PO TID 7 Days #21 cap 09/26/17 Ammonium Lactate 12% [Lac-Hydrin 1 mg TP DAILY #1 tube 11/18/17 12% Cream (140 g)] Acetaminophen [Acetaminophen Extra 2 tab PO Q6 PRN #24 tablet 02/07/18 Strength] Ibuprofen [Motrin] 600 mg PO Q8 PRN #21 tab 11/23/17 Oseltamivir Phosphate [Tamiflu] 75 mg PO BID #9 capsule 11/23/17 Pseudoephedrine [Sudafed Tab] 60 mg PO Q6 PRN #24 tab 11/23/17 Oseltamivir [Tamiflu] 75 mg PO BID #10 cap 12/13/17 Naproxen [Naprosyn] 500 mg PO BID PRN #14 tab 01/15/18 Famotidine [Pepcid] 20 mg PO Q12 #20 tab 02/10/18 Ondansetron [Zofran] 4 mg PO Q8H #10 tab 02/10/18 Ranitidine HCl [Zantac] 150 mg PO BID #20 tablet 02/14/18 traMADol [Ultram] 50 mg PO Q6H PRN #15 tab 04/06/18 Ciprofloxacin HCl [Cipro] 250 mg PO BID #6 tab 04/30/18 Ibuprofen [Motrin] 600 mg PO TID 7 Days tab 04/30/18 traMADol [Ultram] 50 mg PO DAILY PRN 3 Days tab 04/30/18 Ibuprofen [Motrin Tab] 800 mg PO Q8 PRN #20 tab 06/27/18 Loperamide [Loperamide HCl] 2 mg PO Q8 #10 cap 07/03/18 Ondansetron [Zofran] 4 mg PO Q8H #10 tab 07/03/18 - Allergies Allergies/Adverse Reactions: Allergies Allergy/AdvReac Type Severity Reaction Status Date / Time Penicillins Allergy RASH Verified 07/09/18 18:00 pineapple Allergy SWELLING Verified 07/09/18 18:00 Review of Systems ROS Statement: Except As Marked, All Systems Reviewed And Found Negative Cardiovascular: Positive for: Chest Pain Respiratory: Positive for: Shortness of Breath Neurological: Positive for: Weakness (left sided) Physical Exam - Reviewed Nursing Documentation Reviewed: Yes Vital Signs Reviewed: Yes - Physical Exam Cardiovascular/Chest: Positive for: Regular Rate, Rhythm. Negative for: Murmur Respiratory: Positive for: Normal Breath Sounds. Negative for: Respiratory Distress Neurologic/Psych: Positive for: Other (left sided weakness). Negative for: Facial Droop Comments: Morbidly obese - Laboratory Results Result Diagrams: 07/09/18 18:36 07/09/18 18:36 - ECG O2 Sat by Pulse Oximetry: 98 (RA) Pulse Ox Interpretation: Normal - CT Scan/US CT head Other Rad Studies (CT/US): Read By Radiologist - Core Measure Core Measure Indicators: Code Stroke - Critical Care Total Time (In Min): 75 Medical Decision Making Medical Decision Making: Time: 1822 --Code stroke called. Time: 1830 --Case discussed with Dr. Guevara. If there is no blood on CT scan, will administer TPA. Risks of TPA administration were discussed with patient, her father and her aunt. However, patient still has left sided weakness. As such, TPA will be administered. Pt wanted to think about whether or not she wanted tPA. Time: 1848 --Provider reviewed [facility] CT report which showed no abnormalities. Time: 1849 9 mg tPA bolus administered. Scribe Attestation: Documented by Alesia Jimenez, acting as a scribe for Neha Starks MD Provider Scribe Attestation: All medical record entries made by the Scribe were at my direction and personally dictated by me. I have reviewed the chart and agree that the record accurately reflects my personal performance of the history, physical exam, medical decision making, and the department course for this patient. I have also personally directed, reviewed, and agree with the discharge instructions and disposition. Disposition - Clinical Impression Clinical Impression: CVA (cerebral vascular accident) - Patient ED Disposition Is Patient to be Admitted: Yes - Disposition Disposition Time: 19:21 Condition: GUARDED Forms: [facility] (Iranian) - Pt Status Changed To: Hospital Disposition Of: Inpatient - Admit Certification Admit to Inpatient:: After my assessment, the patient will require hospitalization for at least two midnights. This is because of the severity of symptoms shown, intensity of services needed, and/or the medical risk in this patient being treated as an outpatient. - POA Present On Arrival: None
[2018-07-09 18:40] VITALS: BMI 50.0
[2018-07-09 18:44] LABS: BASO % 0.6 % (0.0-2.0); EOS # 0.2 K/uL (0.0-0.7); EOS % 2.3 % (0.0-4.0); HEMOGLOBIN 12.9 g/dL (12.0-16.0); LYMPH # 2.6 K/uL (1.0-4.3); LYMPH % 32.8 % (20.0-40.0); MEAN CELL VOLUME 83.4 fl (81.0-99.0); MEAN CORPUSCULAR HEMOGLOBIN 26.9 pg (27.0-31.0); MEAN CORPUSCULAR HGB CONC 32.3 g/dL (33.0-37.0); MEAN PLATELET VOLUME 9.6 fl (7.2-11.7); MONO # 0.7 K/uL (0.0-0.8); MONO % 8.6 % (0.0-10.0); NEUT # 4.4 K/uL (1.8-7.0); NEUT % 55.7 % (50.0-75.0); RBC 4.77 Mil/uL (3.80-5.20); RED CELL DISTRIBUTION WIDTH 13.9 % (11.5-14.5)
[2018-07-09 18:49] LABS: PROTHROMBIN TIME 11.4 Seconds (9.8-13.1)
[2018-07-09 18:55] LABS: ALB/GLOB RATIO 1.2 (1.0-2.1); ALBUMIN 4.2 g/dL (3.5-5.0); ALT/SGPT 32 U/L (9-52); AST/SGOT 27 U/L (14-36); BLOOD UREA NITROGEN 11 mg/dl (7-17); CALCIUM 9.6 mg/dL (8.4-10.2); GFR NON-AFRICAN AMERICAN > 60; HDL CHOLESTEROL 29 MG/DL (30-70)
[2018-07-09 19:06] LABS: LDL CHOLESTEROL 75 mg/dL (0-129)
[2018-07-09] MEDS ORDERED: STERILE WATER IV ONE ×2 (19:15→19:30)
[2018-07-09] MEDS ORDERED: ALTEPLASE IV ONE ×2 (19:15→19:30)
--- NOTE | 2018-07-09 19:33 | CP.PCM.HP ---
History of Present Illness - History of Present Illness History of Present Illness: PMD: Dr Marroquin Chief complaint: Chest pain Left side weakness The patient was seen and examined in the ED with her parents present and after the TPA was given. HPI: The hx is obtained from the patient and after review of the medical records. This is a 22 years old Obese female with hx of Migraine, gastritis and panic attacks. She comes with a 45 minutes of left chest pain and left upper and lower extremity weakness. she stated that she was cooking when the sudden unset of the sharp left chest pain radiating to the back started. This was associated with SOB. The left lower extremity became weak on her way to the ED and at the same time she began to feel sleepy. Initially in the ED on Sitting up she felt dizzy. Code Stroke was called in the ED . The NIHSS was 6, and the patient was started on TPA after a negative CT Head. 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 absent: Anorexia, Chills, Fever, Headache - EENT Eyes: absent: Blurred Vision, Diplopia, Floaters, Requires Corrective Lenses Ears: absent: Decreased Hearing, Ear Discharge, Tinnitus Nose/Mouth/Throat: absent: Epistaxis, Nasal Congestion, Sinus Pain, Sinus Pressure - Cardiovascular Cardiovascular: Chest Pain, Diaphoresis, Dyspnea. absent: Edema - Respiratory Respiratory: absent: Cough, Hemoptysis, Wheezing, Stridor - Gastrointestinal Gastrointestinal: Abdominal Pain. absent: Constipation, Diarrhea, Nausea, Vomiting - Genitourinary Genitourinary: absent: Dysuria, Flank Pain, Urinary Frequency - Musculoskeletal Musculoskeletal: absent: Arthralgias, Back Pain, Joint Swelling, Muscle Cramps - Integumentary Integumentary: Rash. absent: Pruritus, Skin Ulcer, Sores, Striae - Neurological Neurological: Dizziness, Focal Weakness. absent: Confusion, Headaches - Psychiatric Psychiatric: Panic Attacks. absent: Anxiety, Depression - Endocrine Endocrine: absent: Palpitations, Polydipsia, Polyphagia, Polyuria - Hematologic/Lymphatic Hematologic: absent: Easy Bleeding, Easy Bruising Past Patient History - Infectious Disease Hx of Infectious Diseases: None - Past Medical History & Family History Past Medical History?: Yes - Past Social History Smoking Status: Never Smoked Chewing Tobacco Use: No Cigar Use: No Alcohol: None Drugs: Denies Home Situation {Lives}: With Family - CARDIAC Hx Cardiac Disorders: No - PULMONARY Hx Respiratory Disorders: No - NEUROLOGICAL Hx Migraine: Yes - HEENT Hx HEENT Problems: No - RENAL Hx Chronic Kidney Disease: No - ENDOCRINE/METABOLIC Hx Endocrine Disorders: No - HEMATOLOGICAL/ONCOLOGICAL Hx Blood Disorders: No - INTEGUMENTARY Hx Dermatological Problems: Yes Other/Comment: folliculitis - MUSCULOSKELETAL/RHEUMATOLOGICAL Hx Musculoskeletal Disorders: Yes Other/Comment: carpel tunnel - left - GASTROINTESTINAL Hx Gastritis: Yes - GENITOURINARY/GYNECOLOGICAL Hx Genitourinary Disorders: No - PSYCHIATRIC Hx Panic Symptoms: Yes Hx Substance Use: No - SURGICAL HISTORY Hx Tonsillectomy: Yes (and adenoidectomy) - ANESTHESIA Hx Anesthesia: Yes Hx Anesthesia Reactions: No Hx Malignant Hyperthermia: No Meds Allergies/Adverse Reactions: Allergies Allergy/AdvReac Type Severity Reaction Status Date / Time Penicillins Allergy RASH Verified 07/09/18 18:00 pineapple Allergy SWELLING Verified 07/09/18 18:00 Physical Exam - Constitutional Appears: No Acute Distress Additional comments: Obese - Head Exam Head Exam: ATRAUMATIC, NORMAL INSPECTION, NORMOCEPHALIC - Eye Exam Eye Exam: EOMI, Normal appearance Pupil Exam: NORMAL ACCOMODATION, PERRL - ENT Exam ENT Exam: Mucous Membranes Moist, Normal Exam, Normal External Ear Exam - Neck Exam Neck exam: Positive for: Full Rom, Normal Inspection. Negative for: Lymphadenopathy, Tenderness - Respiratory Exam Respiratory Exam: Clear to Auscultation Bilateral. absent: Rales, Rhonchi, Wheezes - Cardiovascular Exam Cardiovascular Exam: REGULAR RHYTHM, RRR, +S1, +S2. absent: Gallop, JVD - GI/Abdominal Exam GI & Abdominal Exam: Normal Bowel Sounds, Soft. absent: Mass, Organomegaly, Tenderness Additional comments: Obese - Rectal Exam Rectal Exam: Deferred - Extremities Exam Extremities exam: Positive for: normal capillary refill. Negative for: calf tenderness, pedal edema, tenderness Additional comments: Eczema rash at the anterior left foot. Range of motion limited at the left lower extremity with motor strength 3/5 - Back Exam Back exam: NORMAL INSPECTION. absent: CVA tenderness (L), CVA tenderness (R) - Neurological Exam Additional comments: Awake and alert,Questionable mild left facial droop, no dysarthria, no tongue deviation. Motor strength 4/5 at the let upper extremity and 3/5 at the left lower extremity. DTR conserved. Normal sensation to light touch and pain at this exam. - Psychiatric Exam Psychiatric exam: Normal Affect, Normal Mood - Skin Skin Exam: Dry, Intact, Normal Color, Warm Results - Vital Signs Recent Vital Signs: Last Vital Signs Temp 99.1 F 07/09/18 18:00 Pulse 84 07/09/18 18:11 Resp 16 07/09/18 18:11 BP 135/90 07/09/18 18:11 Pulse Ox 98 07/09/18 19:33 - Labs Result Diagrams: 07/09/18 18:36 07/09/18 18:36 Labs: Laboratory Results - last 24 hr 07/09/18 07/09/18 07/09/18 18:08 18:36 18:36 WBC 8.0 RBC 4.77 Hgb 12.9 Hct 39.8 MCV 83.4 MCH 26.9 L MCHC 32.3 L RDW 13.9 Plt Count 208 MPV 9.6 Neut % (Auto) 55.7 Lymph % (Auto) 32.8 Ford % (Auto) 8.6 Eos % (Auto) 2.3 Baso % (Auto) 0.6 Neut # (Auto) 4.4 Lymph # (Auto) 2.6 Ford # (Auto) 0.7 Eos # (Auto) 0.2 Baso # (Auto) 0.0 PT INR APTT Sodium 140 Potassium 3.8 Chloride 107 Carbon Dioxide 23 Anion Gap 14 BUN 11 Creatinine 0.6 L Est GFR ( Amer) > 60 Est GFR (Non-Af Amer) > 60 POC Glucose (mg/dL) 121 H Random Glucose 109 H Calcium 9.6 Total Bilirubin 0.4 AST 27 ALT 32 Alkaline Phosphatase 77 Troponin I < 0.0120 Total Protein 7.7 Albumin 4.2 Globulin 3.5 Albumin/Globulin Ratio 1.2 Triglycerides 260 H D Cholesterol 131 LDL Cholesterol Direct 75 HDL Cholesterol 29 L 07/09/18 18:36 WBC RBC Hgb Hct MCV MCH MCHC RDW Plt Count MPV Neut % (Auto) Lymph % (Auto) [place] % (Auto) Eos % (Auto) Baso % (Auto) Neut # (Auto) Lymph # (Auto) Ford # (Auto) Eos # (Auto) Baso # (Auto) PT 11.4 INR 1.0 APTT 36.0 Sodium Potassium Chloride Carbon Dioxide Anion Gap BUN Creatinine Est GFR ( Amer) Est GFR (Non-Af Amer) POC Glucose (mg/dL) Random Glucose Calcium Total Bilirubin AST ALT Alkaline Phosphatase Troponin I Total Protein Albumin Globulin Albumin/Globulin Ratio Triglycerides Cholesterol LDL Cholesterol Direct HDL Cholesterol - Impressions Impression: NSR 89/min - Imaging and Cardiology MRI - head Status: Image reviewed by me, Report reviewed by me Additional comment: EXAM: CT Head Without Intravenous Contrast EXAM DATE/TIME: 07/09/2018 6:23 PM FINDINGS: Brain: Normal. No hemorrhage. No significant white matter disease. No edema. Ventricles: Normal. No ventriculomegaly. Bones/joints: Normal. No acute fracture. Sinuses: Normal as visualized. No acute sinusitis. Mastoid air cells: Normal as visualized. No mastoid effusion. Soft tissues: Normal. IMPRESSION: No acute findings. Chest x-ray Status: Image reviewed by me Additional comment: No infiltrate Assessment & Plan - Assessment and Plan (Free Text) Plan: 22 years old Obese female with hx of Migraine, gastritis and panic attacks comes with a 45 minutes of left chest pain and left upper and lower extremity weakness, associated with SOB. The left lower extremity became weak on her way to the ED. Code Stroke was called in the ED. The NIHSS was 6, and the patient was started on TPA after a negative CT Head. #. Left Side weakness r/o Acute Stroke vs Conversion disorder - Consult Dr Guevara Neurologist - CT Head: No hemorrhage - TPA given in ED - Admit to ICU - Post TPA protocol - Neuro checks Q1H - IV Fluids NS at 100mls/hr - CTA of head and neck - MRI of brain - ECHO for PFO - Lipid panel - HbA1c/ - Swallow evaluation: Patient passed Swallow eval by nurse - OT/PT #. Chest pain - Consult Dr Bahena cardiology - Serial Troponin - Serial EKG #. Gastritis - Pepcid BID #. DVT prophylaxis with SCD #. Code Status: Full - Date & Time Date: 07/09/18 Time: 19:33
[2018-07-09] MEDS: Sodium Chloride 0.9% 1,000 ML IV SCH (20:39)
--- NOTE | 2018-07-09 21:24 | CARD ---
APPROVED REPORT Date of service: 07/09/2018 <Conclusion> Normal sinus rhythm Normal ECG
[2018-07-10] MEDS: Sodium Chloride 0.9% 1,000 ML IV SCH ×2 (06:37→16:52)
[2018-07-10] MEDS ORDERED: Alum-Mag Hydrox-Simethicone Susp (30 mL) PO ONE (07:44)
--- NOTE | 2018-07-10 09:00 | RAD ---
Date of service: 07/09/2018 HISTORY: Code Stroke COMPARISON: Chest radiographs 07/18/2017. FINDINGS: LUNGS: No active pulmonary disease. PLEURA: No significant pleural effusion identified, no pneumothorax apparent. CARDIOVASCULAR: Normal. OSSEOUS STRUCTURES: No significant abnormalities. VISUALIZED UPPER ABDOMEN: Normal. OTHER FINDINGS: None. IMPRESSION: No interval acute cardiopulmonary disease appreciated.
--- NOTE | 2018-07-10 09:14 | CP.CCUPN ---
CCU Subjective - Physician Review Events Since Last Encounter (Free Text): 07/10/18 13:15 The patient was Seen/interviewed and examined by me at the bedside, Medical records reviewed and Management issues were discussed and formulated with the house staff. Events reviewed 22 Years old Female with PMHx of Gastritis, Migraine, Plantar Fasciitis, Eczema , Panniculitis, Obesitym, Carpal Tunnel Syndrome and panic attacks. Who presented to the Emergency department yesterday with complaint of Chest pain and Left side weakness she also complaint of sudden unset of the sharp left chest pain radiating to the back, associated with SOB. Code stroke was called The NIHSS was 6, CT Head negative and she received TPA in ER She is feeling much better today, normal strength No fevers/chills, No headache, Headach, seizure or peripheral neuropathy Social history: Tobacco - never smoked Alcohol - None Illicit Drugs - No illegal drug use, IVDA FH: Father had a strokes and Heart attack at age of 32 years CCU Objective - Vital Signs / Intake & Output Vital Signs (Last 4 hours): Vital Signs Temp Pulse Resp BP Pulse Ox 07/10/18 07:55 97.7 F 93 H 14 114/69 98 07/10/18 07:00 97.2 F L 69 14 111/47 L 97 07/10/18 06:09 70 14 111/47 L 99 Intake and Output (Last 8hrs): Intake & Output 07/09/18 07/10/18 07/10/18 22:59 06:59 14:59 Intake Total 950 Output Total 800 Balance 150 Weight 310 lb Intake: IV 950 Output: Urine 800 Urine, Voided 800 - Physical Exam Head: Positive for: Atraumatic, Normocephalic. Negative for: Tenderness, Contusion, Swelling Pupils: Positive for: PERRL. Negative for: Sluggish, Non-Reactive Extroacular Muscles: Positive for: EOMI Conjunctiva: Positive for: Normal. Negative for: Injected, Icteric Mouth: Positive for: Moist Mucous Membranes Pharnyx: Positive for: Normal. Negative for: ERYTHEMA Neck: Positive for: Normal Range of Motion, Trachea Midline Respiratory/Chest: Positive for: Clear to Auscultation, Good Air Exchange. Negative for: Respiratory Distress, Accessory Muscle Use, Wheezes, Rales, Retracting, Rhonchi, Tachypneic, Tender to Palpation Cardiovascular: Positive for: Regular Rate and Rhythm, Normal S1, S2, Peripheal Pulses Present. Negative for: Murmurs, Irregular Rhythm, Tachycardic, Bradycardic Abdomen: Positive for: Normal Bowel Sounds. Negative for: Tenderness, Distention, Peritoneal Signs, Rebound, Guarding Upper Extremity: Positive for: Normal Inspection, NORMAL PULSES, Capillary Refill < 2s. Negative for: Cyanosis, Edema, Normal ROM, Tenderness, Swelling Lower Extremity: Positive for: Normal Inspection, NORMAL PULSES, Capillary Refill < 2 s. Negative for: Edema, CALF TENDERNESS Neurological: Positive for: GCS=15, CN II-XII Intact, Speech Normal, Normal Sensory Function, Normal Cerebellar Funct, Norm Deep Tendon Reflexes, Gait Normal. Negative for: Motor Func Grossly Intact (normal strenght, on admission Motor strength 4/5 at the let upper extremity and 3/5 at the left lower extremity) - Medications Active Medications: Active Medications Generic Name Dose Route Start Last Admin Trade Name Freq PRN Reason Stop Dose Admin Famotidine 20 mg 07/09/18 21:00 07/10/18 08:09 Pepcid IVP 20 mg BID ANNA Administration Sodium Chloride 1,000 mls @ 100 mls/hr 07/09/18 18:30 07/10/18 06:37 Sodium Chloride 0.9% IV 100 mls/hr .Q10H ANNA Administration Pantoprazole Sodium 40 mg 07/10/18 09:00 Protonix Inj IVP DAILY ANNA - Patient Studies Lab Studies: Lab Studies 07/09/18 07/09/18 07/09/18 Range/Units 19:42 18:36 18:36 WBC (4.8-10.8) K/uL RBC (3.80-5.20) Mil/uL Hgb (12.0-16.0) g/dL Hct (34.0-47.0) % MCV (81.0-99.0) fl MCH (27.0-31.0) pg MCHC (33.0-37.0) g/dL RDW (11.5-14.5) % Plt Count (130-400) K/uL MPV (7.2-11.7) fl Neut % (Auto) (50.0-75.0) % Lymph % (Auto) (20.0-40.0) % [place] % (Auto) (0.0-10.0) % Eos % (Auto) (0.0-4.0) % Baso % (Auto) (0.0-2.0) % Neut # (Auto) (1.8-7.0) K/uL Lymph # (Auto) (1.0-4.3) K/uL [place] # (Auto) (0.0-0.8) K/uL Eos # (Auto) (0.0-0.7) K/uL Baso # (Auto) (0.0-0.2) K/uL PT 11.4 (9.8-13.1) Seconds INR 1.0 APTT 36.0 (25.6-37.1) Seconds Sodium 140 (132-148) mmol/l Potassium 3.8 (3.6-5.0) MMOL/L Chloride 107 (98-107) mmol/L Carbon Dioxide 23 (22-30) mmol/L Anion Gap 14 (10-20) BUN 11 (7-17) mg/dl Creatinine 0.6 L (0.7-1.2) mg/dl Est GFR ( Amer) > 60 Est GFR (Non-Af Amer) > 60 POC Glucose (mg/dL) (65-110) mg/dL Random Glucose 109 H (65-105) mg/dL Calcium 9.6 (8.4-10.2) mg/dL Total Bilirubin 0.4 (0.2-1.3) mg/dl AST 27 (14-36) U/L ALT 32 (9-52) U/L Alkaline Phosphatase 77 (38-126) U/L Troponin I < 0.0120 (0.00-0.120) ng/mL Total Protein 7.7 (6.3-8.2) G/DL Albumin 4.2 (3.5-5.0) g/dL Globulin 3.5 (2.2-3.9) gm/dL Albumin/Globulin Ratio 1.2 (1.0-2.1) Triglycerides 260 H D (0-149) mg/DL Cholesterol 131 (0-199) mg/dL LDL Cholesterol Direct 75 (0-129) mg/dL HDL Cholesterol 29 L (30-70) MG/DL Blood Type Blood Type Confirm A POSITIVE Antibody Screen BBK History Checked 07/09/18 07/09/18 07/09/18 Range/Units 18:36 18:30 18:08 WBC 8.0 (4.8-10.8) K/uL RBC 4.77 (3.80-5.20) Mil/uL Hgb 12.9 (12.0-16.0) g/dL Hct 39.8 (34.0-47.0) % MCV 83.4 (81.0-99.0) fl MCH 26.9 L (27.0-31.0) pg MCHC 32.3 L (33.0-37.0) g/dL RDW 13.9 (11.5-14.5) % Plt Count 208 (130-400) K/uL MPV 9.6 (7.2-11.7) fl Neut % (Auto) 55.7 (50.0-75.0) % Lymph % (Auto) 32.8 (20.0-40.0) % [place] % (Auto) 8.6 (0.0-10.0) % Eos % (Auto) 2.3 (0.0-4.0) % Baso % (Auto) 0.6 (0.0-2.0) % Neut # (Auto) 4.4 (1.8-7.0) K/uL Lymph # (Auto) 2.6 (1.0-4.3) K/uL [place] # (Auto) 0.7 (0.0-0.8) K/uL Eos # (Auto) 0.2 (0.0-0.7) K/uL Baso # (Auto) 0.0 (0.0-0.2) K/uL PT (9.8-13.1) Seconds INR APTT (25.6-37.1) Seconds Sodium (132-148) mmol/l Potassium (3.6-5.0) MMOL/L Chloride (98-107) mmol/L Carbon Dioxide (22-30) mmol/L Anion Gap (10-20) BUN (7-17) mg/dl Creatinine (0.7-1.2) mg/dl Est GFR ( Amer) Est GFR (Non-Af Amer) POC Glucose (mg/dL) 121 H (65-110) mg/dL Random Glucose (65-105) mg/dL Calcium (8.4-10.2) mg/dL Total Bilirubin (0.2-1.3) mg/dl AST (14-36) U/L ALT (9-52) U/L Alkaline Phosphatase (38-126) U/L Troponin I (0.00-0.120) ng/mL Total Protein (6.3-8.2) G/DL Albumin (3.5-5.0) g/dL Globulin (2.2-3.9) gm/dL Albumin/Globulin Ratio (1.0-2.1) Triglycerides (0-149) mg/DL Cholesterol (0-199) mg/dL LDL Cholesterol Direct (0-129) mg/dL HDL Cholesterol (30-70) MG/DL Blood Type A POSITIVE Blood Type Confirm Antibody Screen Negative BBK History Checked No verified bt Laboratory Results - last 24 hr 07/09/18 07/09/18 07/09/18 18:08 18:30 18:36 WBC 8.0 RBC 4.77 Hgb 12.9 Hct 39.8 MCV 83.4 MCH 26.9 L MCHC 32.3 L RDW 13.9 Plt Count 208 MPV 9.6 Neut % (Auto) 55.7 Lymph % (Auto) 32.8 [place] % (Auto) 8.6 Eos % (Auto) 2.3 Baso % (Auto) 0.6 Neut # (Auto) 4.4 Lymph # (Auto) 2.6 [place] # (Auto) 0.7 Eos # (Auto) 0.2 Baso # (Auto) 0.0 PT INR APTT Sodium Potassium Chloride Carbon Dioxide Anion Gap BUN Creatinine Est GFR ( Amer) Est GFR (Non-Af Amer) POC Glucose (mg/dL) 121 H Random Glucose Calcium Total Bilirubin AST ALT Alkaline Phosphatase Troponin I Total Protein Albumin Globulin Albumin/Globulin Ratio Triglycerides Cholesterol LDL Cholesterol Direct HDL Cholesterol Blood Type A POSITIVE Blood Type Confirm Antibody Screen Negative BBK History Checked No verified bt 07/09/18 07/09/18 07/09/18 18:36 18:36 19:42 WBC RBC Hgb Hct MCV MCH MCHC RDW Plt Count MPV Neut % (Auto) Lymph % (Auto) [place] % (Auto) Eos % (Auto) Baso % (Auto) Neut # (Auto) Lymph # (Auto) [place] # (Auto) Eos # (Auto) Baso # (Auto) PT 11.4 INR 1.0 APTT 36.0 Sodium 140 Potassium 3.8 Chloride 107 Carbon Dioxide 23 Anion Gap 14 BUN 11 Creatinine 0.6 L Est GFR ( Amer) > 60 Est GFR (Non-Af Amer) > 60 POC Glucose (mg/dL) Random Glucose 109 H Calcium 9.6 Total Bilirubin 0.4 AST 27 ALT 32 Alkaline Phosphatase 77 Troponin I < 0.0120 Total Protein 7.7 Albumin 4.2 Globulin 3.5 Albumin/Globulin Ratio 1.2 Triglycerides 260 H D Cholesterol 131 LDL Cholesterol Direct 75 HDL Cholesterol 29 L Blood Type Blood Type Confirm A POSITIVE Antibody Screen BBK History Checked EKG/Cardiology Studies: Cardiology / EKG Studies 07/09/18 18:23 ELECTROCARDIOGRAM Stat Comment: Mode Of Transportation: Reason For Exam: L sided weakness 07/10/18 07:30 EKG [ELECTROCARDIOGRAM] Routine Comment: Mode Of Transportation: PORTABLE Reason For Exam: Chest Pain Does Patient Have a Pacemaker?: No Fingerstick Blood Sugar Results: 121 Review of Systems - Cardiovascular Cardiovascular: absent: As Per HPI, Acrocyanosis, Chest Pain, Chest Pain at Rest , Chest Pain with Activity, Claudication, Diaphoresis, Dyspnea, Dyspnea on Exertion, Edema, Irregular Heart Rhythm, Pain Radiating to Arm/Neck/Jaw, Leg Edema, Leg Ulcers, Lightheadedness, Orthopnea, Palpitations, Paroxysmal Nocturnal Dyspnea, Pedal Edema, Radiating Pain, Rapid Heart Rate, Slow Heart Rate, Syncope, Other, UNREMARKABLE - Respiratory Respiratory: absent: As Per HPI, Cough, Dyspnea, Hemoptysis, Dyspnea on Exertion , Wheezing, Snoring, Stridor, Pain on Inspiration, Chest Congestion, Excessive Mucous Production, Change in Mucous Color, Pain with Coughing, Other, UNREMARKABLE - Neurological Neurological: Dizziness, Numbness, Focal Weakness. absent: Abnormal Gait, Abnormal Hearing, Abnormal Movements, Confusion, Convulsions Critical Care Progress Note - Extremities/Vascular Does the Patient have a Central Venous Catheter?: No Does the Patient need a Central Venous Catheter?: No Does the Patient have a Garff Catheter?: No Does the Patient need a Graff Catheter?: No - Nutrition Nutrition: Nutrition Category Date Time Status NPO Diet [DIET] Diets 07/09/18 Dinner Active Assessment/Plan (1) CVA (cerebral vascular accident) Current Visit: Yes Status: Acute Priority: High Comment: - Admit to ICU, Frequent Neuro check - Post TPA protocol - Allow permissive hypertension - Speech and swallow evaluation - PT/OT evaluation, may require DIANNA on d/c. - MRI brain acute stroke sequences (diffusion/FLAIR) - ECHO for PFO - Lipid panel (2) Chest pain Current Visit: Yes Status: Acute Priority: High Comment: - Serial EKG, and Trop (negative so far) - Consult Dr Bahena cardiology
[2018-07-10 09:48] LABS: SQUAMOUS EPITHIAL 1 /hpf (0-5); URINE BACTERIA FEW (<OCC); URINE BILIRUBIN NEGATIVE (NEGATIVE); URINE BLOOD LARGE (NEGATIVE); URINE CLARITY SLIGHTY-CLOUDY (Clear); URINE COLOR YELLOW (YELLOW); URINE GLUCOSE (UA) NEG (Normal); URINE LEUKOCYTE ESTERASE LARGE Leu/uL (Negative); URINE PROTEIN NEGATIVE (NEGATIVE); URINE UROBILINOGEN 0.2-1.0 mg/dL (0.2-1.0)
--- NOTE | 2018-07-10 10:15 | CP.PCM.PN ---
Objective - Vital Signs/Intake and Output Vital Signs (last 24 hours): Temp Pulse Resp BP Pulse Ox 97.7 F 74 18 101/60 99 07/10/18 07:55 07/10/18 09:00 07/10/18 09:00 07/10/18 09:00 07/10/18 09:00 Intake and Output: 07/10/18 07/10/18 06:59 18:59 Intake Total 950 Output Total 800 Balance 150 - Medications Medications: Current Medications Atorvastatin Calcium (Lipitor) 40 mg PO DAILY [facility] Famotidine (Pepcid) 20 mg IVP BID ANNA Last Admin: 07/10/18 08:09 Dose: 20 mg Sodium Chloride (Sodium Chloride 0.9%) 1,000 mls @ 100 mls/hr IV .Q10H ANNA Last Admin: 07/10/18 06:37 Dose: 100 mls/hr - Labs Labs: 07/09/18 18:36 07/09/18 18:36 PT 11.4 Seconds (9.8-13.1) 07/09/18 18:36 INR 1.0 07/09/18 18:36 APTT 36.0 Seconds (25.6-37.1) 07/09/18 18:36
--- NOTE | 2018-07-10 10:25 | CT ---
Date of service: 07/09/2018 PROCEDURE: CT HEAD WITHOUT CONTRAST. HISTORY: code stroke COMPARISON: Noncontrast head CT 08/30/2016. TECHNIQUE: Axial computed tomography images were obtained through the head/brain without intravenous contrast. Radiation dose: Total exam DLP = 864.56 mGy-cm. This CT exam was performed using one or more of the following dose reduction techniques: Automated exposure control, adjustment of the mA and/or kV according to patient size, and/or use of iterative reconstruction technique. FINDINGS: HEMORRHAGE: No intracranial hemorrhage. BRAIN: Normal garcia-white matter differentiation and density are appreciated throughout the cerebrum and cerebellum with the brainstem appearing unremarkable as well. There is no mass effect. There is no suspicious extra-axial fluid collection and the midline brain anatomy appears diffusely unremarkable. VENTRICLES: Unremarkable. No hydrocephalus. CALVARIUM: Unremarkable. PARANASAL SINUSES: Unremarkable as visualized. No significant inflammatory changes. MASTOID AIR CELLS: Unremarkable as visualized. No inflammatory changes. OTHER FINDINGS: None. IMPRESSION: Stable unremarkable noncontrast head CT. Follow-up CT or MRI are available if clinically warranted.
[2018-07-10] MEDS ORDERED: Influenza Vaccine (5 YR UP)/PF 60 MCG/0.5 ML SYR IM ONE (10:26)
--- NOTE | 2018-07-10 14:41 | CARD ---
APPROVED REPORT Date of service: 07/10/2018 EXAM: Two-dimensional and M-mode echocardiogram with Doppler, color Doppler with bubble study. Other Information Quality : AverageRhythm : NSR Technically limited study due to body habitus. INDICATION CVA/TIA Echo Enhancing Agent Indication: Rule Out Septal Defect Agent/Amount Used: Agitated Saline 2D DIMENSIONS IVSd0.99 (0.7-1.1cm)LVDd4.07 (3.9-5.9cm) LVOT Diameter1.88 (1.8-2.4cm)PWd0.94 (0.7-1.1cm) IVSs1.10 (0.8-1.2cm)LVDs2.69 (2.5-4.0cm) FS (%) 34.0 %PWs1.28 (0.8-1.2cm) M-Mode DIMENSIONS Left Atrium (MM)4.00 (2.5-4.0cm)IVSd1.00 (0.7-1.1cm) Aortic Root3.03 (2.2-3.7cm)LVDd4.62 (4.0-5.6cm) Aortic Cusp Exc.2.00 (1.5-2.0cm)PWd0.91 (0.7-1.1cm) IVSs1.47 cmFS (%) 43 % LVDs2.62 (2.0-3.8cm)PWs1.82 cm Aortic Valve AoV Peak Rosajuuz593.1cm/sAoV VTI20.2cmAO Peak GR.4mmHg LVOT Peak Eifhgyer79.3cm/sLVOT VTI16.67cmAO Mean GR.2mmHg Mitral Valve MV E Zkdcmtqi36.1cm/sMV DECEL [id number] A Pqbqvzca93.0cm/s MV QVS83yyN/A ratio1.6MVA (PHT)2.82cm2 TDI Lateral E' Peak V8.64cm/sMedial E' Peak V10.35cm/sE/Lateral E'7.3 E/Medial E'6.1 Pulmonary Valve PV Peak Stgxvnph23.9cm/s LEFT VENTRICLE The left ventricle is normal size. There is normal left ventricular wall thickness. The left ventricular systolic function is normal. The estimated ejection fraction is 65% No regional wall motion abnormalities noted.. The left ventricular diastolic function is normal. No left ventricle thrombus noted on this study. There is no ventricular septal defect visualized. There is no mass noted in the left ventricle. RIGHT VENTRICLE The right ventricle is normal size. There is normal right ventricular wall thickness. The right ventricular systolic function is normal. ATRIA The left atrium size is normal. The right atrium size is normal. The interatrial septum is intact with no evidence for an atrial septal defect. AORTIC VALVE The aortic valve is normal in structure. No aortic regurgitation is present. There is no aortic valvular stenosis. MITRAL VALVE The mitral valve is normal in structure. There is no mitral valve stenosis. There is no mitral valve regurgitation noted. TRICUSPID VALVE The tricuspid valve is normal in structure. There is no tricuspid valve regurgitation noted. PULMONIC VALVE The pulmonary valve is normal in structure. There is no pulmonic valvular regurgitation. GREAT VESSELS The aortic root is normal in size. The ascending aorta is normal in size. The pulmonary artery is normal. The IVC is normal in size and collapses >50% with inspiration. PERICARDIAL EFFUSION There is no pericardial effusion. <Conclusion> Normal transthoracic echocardiogram. No evidence of patent foramen ovale via bubble study The estimated ejection fraction is 65%
--- NOTE | 2018-07-10 15:06 | CP.PCM.CON ---
History of Present Illness - History of Present Illness History of Present Illness: asked to see pt by dr Ring 22 y/o female admitted for CVA. pt states she had sudden onset of chest pain followed by lue and lle weakness and numbness. this continued until pt was given tpa in er. she currently has minimal residual symptoms. she denies palp, lh, dizziness, sob, prior hx of similar symptoms, hx of lupus, or hx of hypercoag state. her grandparents have hypercoag states. on tele pt has not had arrythmias. Review of Systems - Constitutional Constitutional: As Per HPI, Weakness. absent: Anorexia, Chills, Daytime Sleepiness, Excessive Sweating, Fatigue, Fever, Frequent Falls, Headache, Increased Appetite, Lethargy, Malaise, Night Sweats, Snoring, Sleep Apnea, Weight Gain, Weight Loss, Other - EENT Eyes: As Per HPI. absent: Blind Spots, Blurred Vision, Change in Vision, Decreased Night Vision, Diplopia, Discharge, Dry Eye, Exophthalmos, Floaters, Irritation, Itchy Eyes, Loss of Peripheral Vision, Pain, Photophobia, Requires Corrective Lenses, Sees Flashes, Spots in Vision, Tunnel Vision, Other Visual Disturbances, Loss of Vision, Other Ears: As Per HPI. absent: Decreased Hearing, Ear Discharge, Ear Pain, Tinnitus, Abnormal Hearing, Disequilibrium, Dizziness, Other Nose/Mouth/Throat: As Per HPI. absent: Epistaxis, Nasal Congestion, Nasal Discharge, Nasal Obstruction, Nasal Trauma, Nose Pain, Post Nasal Drip, Sinus Pain, Sinus Pressure, Bleeding Gums, Change in Voice, Dental Pain, Dry Mouth, Dysphagia, Halitosis, Hoarsness, Lip Swelling, Mouth Lesions, Mouth Pain, Odynophagia, Sore Throat, Throat Swelling, Tongue Swelling, Facial Pain, Neck Pain, Neck Mass, Other - Breasts Breasts: As Per HPI. absent: Change in Shape, Mass, Pain, Nipple Discharge, Nipple Inversion, Skin Changes, Swelling, Other - Cardiovascular Cardiovascular: As Per HPI, Chest Pain. absent: Acrocyanosis, Chest Pain at Rest, Chest Pain with Activity, Claudication, Diaphoresis, Dyspnea, Dyspnea on Exertion, Edema, Irregular Heart Rhythm, Pain Radiating to Arm/Neck/Jaw, Leg Edema, Leg Ulcers, Lightheadedness, Orthopnea, Palpitations, Paroxysmal Nocturnal Dyspnea, Pedal Edema, Radiating Pain, Rapid Heart Rate, Slow Heart Rate, Syncope, Other - Respiratory Respiratory: As Per HPI. absent: Cough, Dyspnea, Hemoptysis, Dyspnea on Exertion, Wheezing, Snoring, Stridor, Pain on Inspiration, Chest Congestion, Excessive Mucous Production, Change in Mucous Color, Pain with Coughing, Other - Gastrointestinal Gastrointestinal: As Per HPI. absent: Abdominal Pain, Belching, Bloating, Change in Bowel Habits, Change in Stool Character, Coffee Ground Emesis, Constipation, Cramping, Diarrhea, Dyspepsia, Dysphagia, Early Satiety, Excessive Flatus, Fecal Incontinence, Heartburn, Hematemesis, Hematochezia, Loose Stools, Melena, Nausea, Odynophagia, Temesmus, Vomiting, Other - Genitourinary Genitourinary: As Per HPI. absent: Change in Urinary Stream, Difficulty Urin ating, Dysuria, Flank Pain, Hematuria, Pyuria, Nocturia, Urinary Incontinence, Urinary Frequency, Urinary Hesitance, Urinary Urgency, Voiding Freq/Small Amts, Freq UTI, Hx Renal/Bladder Calculi, Hx /Renal Surgery, Bladder Distension, Other - Reproductive: Female Reproductive:Female: As Per HPI. absent: Amenorrhea, Amenorrhea/ Control, Currently Menstual, Cycle <21 Days, Cycle >35 Days, Cycle Variable, Menses 1-7 Days, Menses >/= 8 Days, Menses Variable, Cycle > 4 Weeks Between, No Menses for 6 Months, Heavy Menses, Light Menses, Normal Menses, Spotting Between Cycles, S/P Hysterectomy, Menopausal, Post Menopausal, Premenarche, Abnormal Vaginal B leeding, Dysmenorrhea, Dyspareunia, Genital Lesions, Genital Pruritis, Pelvic Pain, Prolapse Symptoms, Sexual Dysfunction, Vaginal Discharge, Vaginal Dryness, Vaginal Odor, Vaginal Pruritis, Other - Menstruation Menstruation: As Per HPI. absent: Amenorrhea, Amenorrhea/ Control, Currently Menstual, Cycle <21 Days, Cycle >35 Days, Cycle Variable, Menses 1-7 Days, Menses >/= 8 Days, Menses Variable, Cycle > 4 Weeks Between, No Menses for 6 Months, Heavy Menses, Light Menses, Normal Menses, Spotting Between Cycles, S/P Hysterectomy, Menopausal, Post Menopausal, Premenarche, Abnormal Vaginal Bleeding, Dysmenorrhea, Other - Musculoskeletal Musculoskeletal: As Per HPI, Muscle Weakness, Numbness. absent: Abnormal Gait, Arthralgias, Atrophy, Back Pain, Deformity, Joint Swelling, Limited Range of Motion, Loss of Height, Muscle Cramps, Myalgias, Neck Pain, Radiating Pain into Limb, Stiffness, Tingling, Other - Integumentary Integumentary: As Per HPI. absent: Acne, Alopecia, Bleeding Lesions, Change in Hair, Change in Nails, Change in Pigmentation, Changing Lesions, Dry Skin, Erythema, Furuncle, Hirsutism, Lesions, New Lesions, Non-Healing Lesions, Photosensitivity, Pruritus, Rash, Skin Pain, Skin Ulcer, Sores, Striae, Swelling, Unusual Bruising, Wounds, Jaundice, Other - Neurological Neurological: As Per HPI, Numbness, Focal Weakness, Weakness. absent: Abnormal Gait, Abnormal Hearing, Abnormal Movements, Abnormal Speech, Behavioral Changes, Burning Sensations, Confusion, Convulsions, Disequilibrium, Dizziness, Frequent Falls, Headaches, Lack of Coordination, Loss of Vision, Memory Loss, Paresthesias, Radicular Pain, Restless Legs, Sensory Deficit, Syncope, Tingling, Tremor, Vertigo, Other Visual Disturbances, Other - Psychiatric Psychiatric: As Per HPI. absent: Abnormal Sleep Pattern, Anhedonia, Anxiety, Auditory Hallucinations, Behavioral Changes, Change in Appetite, Change in Libido, Confusion, Depression, Difficulty Concentrating, Hallucinations, Homicidal Ideation, Hopelessness, Irritability, Memory Loss, Mood Swings, Panic Attacks, Paranoia, Suicidal Ideation, Visual Hallucinations, Tactile Hallucinations, Other - Endocrine Endocrine: As Per HPI. absent: Change in Body Appearance, Change in Libido, Cold Intolorance, Deepening of Voice, Excessive Sweating, Fatigue, Flushing, Heat Intolorance, Increase in Ring/Shoe/Hat Size, Palpitations, Polydipsia, Polyphagia, Polyuria, Other - Hematologic/Lymphatic Hematologic: As Per HPI. absent: Easy Bleeding, Easy Bruising, Lymphadenopathy, Other Past Patient History - Infectious Disease Hx of Infectious Diseases: None - Past Medical History & Family History Past Medical History?: Yes - Past Social History Smoking Status: Never Smoked Chewing Tobacco Use: No Cigar Use: No Alcohol: None Drugs: Denies Home Situation {Lives}: With Family - CARDIAC Hx Cardiac Disorders: No - PULMONARY Hx Respiratory Disorders: No - NEUROLOGICAL Hx Migraine: Yes - HEENT Hx HEENT Problems: No - RENAL Hx Chronic Kidney Disease: No - ENDOCRINE/METABOLIC Hx Endocrine Disorders: No - HEMATOLOGICAL/ONCOLOGICAL Hx Blood Disorders: No - INTEGUMENTARY Hx Dermatological Problems: Yes Other/Comment: folliculitis - MUSCULOSKELETAL/RHEUMATOLOGICAL Hx Musculoskeletal Disorders: Yes Other/Comment: carpel tunnel - left - GASTROINTESTINAL Hx Gastritis: Yes - GENITOURINARY/GYNECOLOGICAL Hx Genitourinary Disorders: No - PSYCHIATRIC Hx Panic Symptoms: Yes Hx Substance Use: No - SURGICAL HISTORY Hx Tonsillectomy: Yes (and adenoidectomy) - ANESTHESIA Hx Anesthesia: Yes Hx Anesthesia Reactions: No Hx Malignant Hyperthermia: No Meds Allergies/Adverse Reactions: Allergies Allergy/AdvReac Type Severity Reaction Status Date / Time Penicillins Allergy RASH Verified 07/09/18 18:00 pineapple Allergy SWELLING Verified 07/09/18 18:00 - Medications Medications: Current Medications Atorvastatin Calcium (Lipitor) 40 mg PO DAILY [facility] Last Admin: 07/10/18 10:57 Dose: 40 mg Famotidine (Pepcid) 20 mg IVP BID [facility] Last Admin: 07/10/18 08:09 Dose: 20 mg Sodium Chloride (Sodium Chloride 0.9%) 1,000 mls @ 100 mls/hr IV .Q10H [facility] Last Admin: 07/10/18 06:37 Dose: 100 mls/hr Physical Exam - Constitutional Appears: Well - Head Exam Head Exam: ATRAUMATIC, NORMAL INSPECTION, NORMOCEPHALIC - Eye Exam Eye Exam: EOMI, Normal appearance, PERRL. absent: Conjunctival injection, Nystagmus, Periorbital swelling, Periorbital tenderness, Scleral icterus Pupil Exam: NORMAL ACCOMODATION, PERRL. absent: Fixed, Irregular, Miosis, Mydriatic, Unequal - ENT Exam ENT Exam: Mucous Membranes Moist, Normal Exam. absent: Mucous Membranes Dry, Normal External Ear Exam, Normal Oropharynx, TM's Normal Bilaterally - Neck Exam Neck exam: Positive for: Normal Inspection. Negative for: Full Rom, Ly mphadenopathy, Meningismus, Tenderness, Thyromegaly - Respiratory Exam Respiratory Exam: Clear to Auscultation Bilateral, NORMAL BREATHING PATTERN. absent: Accessory Muscle Use, Chest Wall Tenderness, Decreased Breath Sounds, Prolonged Expiratory Phase, Rales, Rhonchi, Wheezes, Respiratory Distress, Stridor - Cardiovascular Exam Cardiovascular Exam: REGULAR RHYTHM, +S1, +S2, Systolic Murmur. absent: Bradycardia, Tachycardia, Clicks, Diastolic murmur, Gallop, Irregular Rhythm, JVD, RRR, Rubs, +S4 - GI/Abdominal Exam GI & Abdominal Exam: Normal Bowel Sounds, Soft. absent: Bruit, Diminished Bowel Sounds, Distended, Firm, Guarding, Hernia, Hyperactive Bowel Sounds, Hypoactive Bowel Sounds, Mass, Organomegaly, Pulsatile Mass, Rebound, Rigid, Tenderness - Rectal Exam Rectal Exam: Deferred - Extremities Exam Extremities exam: Positive for: normal inspection, pedal pulses present. Negative for: calf tenderness, full ROM, joint swelling, normal capillary refill, pedal edema, tenderness - Back Exam Back exam: NORMAL INSPECTION. absent: CVA tenderness (L), CVA tenderness (R), FULL ROM, muscle spasm, paraspinal tenderness, rash noted, tenderness, vertebral tenderness - Neurological Exam Neurological exam: Alert, CN II-XII Intact, Normal Gait, Oriented x3, Reflexes Normal - Psychiatric Exam Psychiatric exam: Normal Affect, Normal Mood - Skin Skin Exam: Dry, Intact, Normal Color, Warm Results - Vital Signs Recent Vital Signs: Last Vital Signs Temp 98.1 F 07/10/18 12:00 Pulse 75 07/10/18 14:00 Resp 18 07/10/18 14:00 BP 117/57 L 07/10/18 14:00 Pulse Ox 99 07/10/18 14:00 - Labs Result Diagrams: 07/10/18 20:01 07/09/18 18:36 Labs: Laboratory Results - last 24 hr 07/09/18 07/09/18 07/09/18 18:08 18:30 18:36 WBC 8.0 RBC 4.77 Hgb 12.9 Hct 39.8 MCV 83.4 MCH 26.9 L MCHC 32.3 L RDW 13.9 Plt Count 208 MPV 9.6 Neut % (Auto) 55.7 Lymph % (Auto) 32.8 [place] % (Auto) 8.6 Eos % (Auto) 2.3 Baso % (Auto) 0.6 Neut # (Auto) 4.4 Lymph # (Auto) 2.6 [place] # (Auto) 0.7 Eos # (Auto) 0.2 Baso # (Auto) 0.0 PT INR APTT Sodium Potassium Chloride Carbon Dioxide Anion Gap BUN Creatinine Est GFR ( Amer) Est GFR (Non-Af Amer) POC Glucose (mg/dL) 121 H Random Glucose Hemoglobin A1c Calcium Total Bilirubin AST ALT Alkaline Phosphatase Troponin I Total Protein Albumin Globulin Albumin/Globulin Ratio Triglycerides Cholesterol LDL Cholesterol Direct HDL Cholesterol Urine Color Urine Clarity Urine pH Ur Specific [place] Urine Protein Urine Glucose (UA) Urine Ketones Urine Blood Urine Nitrate Urine Bilirubin Urine Urobilinogen Ur Leukocyte Esterase Urine RBC (Auto) Urine Microscopic WBC Ur Squamous Epith Cells Urine Bacteria Blood Type A POSITIVE Blood Type Confirm Antibody Screen Negative BBK History Checked No verified bt 07/09/18 07/09/18 07/09/18 18:36 18:36 18:36 WBC RBC Hgb Hct MCV MCH MCHC RDW Plt Count MPV Neut % (Auto) Lymph % (Auto) [place] % (Auto) Eos % (Auto) Baso % (Auto) Neut # (Auto) Lymph # (Auto) [place] # (Auto) Eos # (Auto) Baso # (Auto) PT 11.4 INR 1.0 APTT 36.0 Sodium 140 Potassium 3.8 Chloride 107 Carbon Dioxide 23 Anion Gap 14 BUN 11 Creatinine 0.6 L Est GFR ( Amer) > 60 Est GFR (Non-Af Amer) > 60 POC Glucose (mg/dL) Random Glucose 109 H Hemoglobin A1c 5.9 Calcium 9.6 Total Bilirubin 0.4 AST 27 ALT 32 Alkaline Phosphatase 77 Troponin I < 0.0120 Total Protein 7.7 Albumin 4.2 Globulin 3.5 Albumin/Globulin Ratio 1.2 Triglycerides 260 H D Cholesterol 131 LDL Cholesterol Direct 75 HDL Cholesterol 29 L Urine Color Urine Clarity Urine pH Ur Specific [place] Urine Protein Urine Glucose (UA) Urine Ketones Urine Blood Urine Nitrate Urine Bilirubin Urine Urobilinogen Ur Leukocyte Esterase Urine RBC (Auto) Urine Microscopic WBC Ur Squamous Epith Cells Urine Bacteria Blood Type Blood Type Confirm Antibody Screen BBK History Checked 07/09/18 07/10/18 19:42 08:59 WBC RBC Hgb Hct MCV MCH MCHC RDW Plt Count MPV Neut % (Auto) Lymph % (Auto) [place] % (Auto) Eos % (Auto) Baso % (Auto) Neut # (Auto) Lymph # (Auto) [place] # (Auto) Eos # (Auto) Baso # (Auto) PT INR APTT Sodium Potassium Chloride Carbon Dioxide Anion Gap BUN Creatinine Est GFR ( Amer) Est GFR (Non-Af Amer) POC Glucose (mg/dL) Random Glucose Hemoglobin A1c Calcium Total Bilirubin AST ALT Alkaline Phosphatase Troponin I Total Protein Albumin Globulin Albumin/Globulin Ratio Triglycerides Cholesterol LDL Cholesterol Direct HDL Cholesterol Urine Color Yellow Urine Clarity Slighty-cloudy Urine pH 6.0 Ur Specific [place] 1.025 Urine Protein Negative Urine Glucose (UA) Neg Urine Ketones Negative Urine Blood Large Urine Nitrate Negative Urine Bilirubin Negative Urine Urobilinogen 0.2-1.0 Ur Leukocyte Esterase Large Urine RBC (Auto) 21 H Urine Microscopic WBC 34 H Ur Squamous Epith Cells 1 Urine Bacteria Few H Blood Type Blood Type Confirm A POSITIVE Antibody Screen BBK History Checked - EKG Data EKG Interpreted by: Myself EKG shows normal: Sinus rhythm Rate: Normal Assessment & Plan (1) Family history of hypercoagulable state Status: Acute (2) CVA (cerebral vascular accident) Status: Acute Priority: High - Assessment and Plan (Free Text) Plan: BLAKE WITH BUBBLE STUDY, DW FAM AND PT AND CONSENT OBTAINED PICC ORDERED FOR ACCESS LE DUPLEX VENOUS RO DVT HYPERCOAG LABS ORDERED THERE IS A FAM HX OF HYPER COAG. 77
--- NOTE | 2018-07-10 17:07 | CP.PCM.PN ---
Subjective - Date & Time of Evaluation Date of Evaluation: 07/10/18 Time of Evaluation: 09:30 - Subjective Subjective: Patient seen and examined bedside .Feeling well, with no neuro deficits. Hemodynamically stable, afebrile s/p t-PA infusion Unable to perform MRI since patient can not fit in our MRI machine Objective - Vital Signs/Intake and Output Vital Signs (last 24 hours): Temp Pulse Resp BP Pulse Ox 97.9 F 89 24 137/81 100 07/10/18 16:00 07/10/18 16:31 07/10/18 16:00 07/10/18 16:31 07/10/18 16:31 Intake and Output: 07/10/18 07/10/18 06:59 18:59 Intake Total 950 Output Total 800 Balance 150 - Medications Medications: Current Medications Atorvastatin Calcium (Lipitor) 40 mg PO DAILY [facility] Last Admin: 07/10/18 10:57 Dose: 40 mg Famotidine (Pepcid) 20 mg IVP BID [facility] Last Admin: 07/10/18 08:09 Dose: 20 mg - Labs Labs: 07/09/18 18:36 07/09/18 18:36 PT 11.4 Seconds (9.8-13.1) 07/09/18 18:36 INR 1.0 07/09/18 18:36 APTT 36.0 Seconds (25.6-37.1) 07/09/18 18:36 - Constitutional Appears: Non-toxic, No Acute Distress, Other (obese ) - Head Exam Head Exam: ATRAUMATIC, NORMAL INSPECTION, NORMOCEPHALIC - Eye Exam Eye Exam: EOMI, Normal appearance, PERRL Pupil Exam: NORMAL ACCOMODATION - ENT Exam ENT Exam: Mucous Membranes Moist, Normal Exam - Neck Exam Neck Exam: Full ROM, Normal Inspection - Respiratory Exam Respiratory Exam: Clear to Ausculation Bilateral, NORMAL BREATHING PATTERN. absent: Rales, Rhonchi, Wheezes - Cardiovascular Exam Cardiovascular Exam: REGULAR RHYTHM, RRR, +S1, +S2. absent: JVD - GI/Abdominal Exam GI & Abdominal Exam: Soft, Normal Bowel Sounds. absent: Distended, Guarding, Tenderness, Rebound - Rectal Exam Rectal Exam: Deferred - Extremities Exam Extremities Exam: Normal Capillary Refill, Normal Inspection. absent: Pedal Edema - Back Exam Back Exam: NORMAL INSPECTION - Neurological Exam Neurological Exam: Alert, Awake, CN II-XII Intact, Normal Gait, Oriented x3 Neuro motor strength exam: Left Upper Extremity: 5, Right Upper Extremity: 5, Left Lower Extremity: 5, Right Lower Extremity: 5 - Psychiatric Exam Psychiatric exam: Normal Affect, Normal Mood - Skin Skin Exam: Dry, Intact, Normal Color, Warm Assessment and Plan - Assessment and Plan (Free Text) Assessment: 22 years old Obese female with hx of Migraine, gastritis and panic attacks comes with a 45 minutes of left chest pain and left upper and lower extremity weakness, associated with SOB. The left lower extremity became weak on her way to the ED. Code Stroke was called in the ED. The NIHSS was 6, and the patient was started on TPA after a negative CT Head. 1. Left Side weakness r/o Acute Stroke s/p TPA patient is neurologically intact at present CT head showed no acute pathology Unable to perform MRI , patient could not fit in our MRI machine Follow up Carotid doppler ECho showed no PFO Follow up with neurology recommendations Cardiology consult appreciated. Plan for BLAKE in AM to rule out PFO hematology consult for hypercoagulable work up ( patient has no prior history of VTE) started Statin PO BP controlled without meds 2. Chest pain cardiology consult with Dr Sergio Bahena appreciated Echo showed normal wall motion and EF , no PFO Trop negative most likely atypical chest pain 3. Gastritis Pepcid BID 4. Asymptomatic bacteruria denies dysuria No need for treatment now 5.DVT prophylaxis SCD 6. Obesity BMI 50
--- NOTE | 2018-07-10 17:40 | CT ---
Date of service: 07/10/2018 PROCEDURE: CT HEAD WITHOUT CONTRAST. HISTORY: code stroke, TPA COMPARISON: CT head dated 07/09/2018 TECHNIQUE: Axial computed tomography images were obtained through the head/brain without intravenous contrast. Radiation dose: Total exam DLP = 868.7 mGy-cm. This CT exam was performed using one or more of the following dose reduction techniques: Automated exposure control, adjustment of the mA and/or kV according to patient size, and/or use of iterative reconstruction technique. FINDINGS: HEMORRHAGE: No intracranial hemorrhage. BRAIN: No mass effect or edema. No atrophy or chronic microvascular ischemic changes. VENTRICLES: Unremarkable. No hydrocephalus. CALVARIUM: Unremarkable. PARANASAL SINUSES: Unremarkable as visualized. No significant inflammatory changes. MASTOID AIR CELLS: Unremarkable as visualized. No inflammatory changes. OTHER FINDINGS: None. IMPRESSION: No acute intracranial pathology. No significant interval change.
[2018-07-10 20:31] LABS: BASO % 0.5 % (0.0-2.0); EOS # 0.2 K/uL (0.0-0.7); EOS % 1.7 % (0.0-4.0); HEMOGLOBIN 13.4 g/dL (12.0-16.0); LYMPH # 2.5 K/uL (1.0-4.3); LYMPH % 27.8 % (20.0-40.0); MEAN CELL VOLUME 82.9 fl (81.0-99.0); MEAN CORPUSCULAR HGB CONC 32.6 g/dL (33.0-37.0); MEAN PLATELET VOLUME 10.1 fl (7.2-11.7); MONO # 0.5 K/uL (0.0-0.8); MONO % 5.7 % (0.0-10.0); NEUT # 5.8 K/uL (1.8-7.0); NEUT % 64.3 % (50.0-75.0); RBC 4.97 Mil/uL (3.80-5.20); RED CELL DISTRIBUTION WIDTH 13.7 % (11.5-14.5); WHITE BLOOD COUNT 9.1 K/uL (4.8-10.8)
--- NOTE | 2018-07-11 12:36 | US ---
Date of service: 07/10/2018 PROCEDURE: Duplex ultrasound of the carotid and vertebral arteries. HISTORY: stroke COMPARISON: None available. TECHNIQUE: Grayscale and duplex Doppler evaluation of the cervical carotid and vertebral arteries were performed. The common carotid, carotid bifurcations and cervical ICA and proximal ECA were evaluated. The vertebral arteries were evaluated for gross patency and direction. FINDINGS: RIGHT CAROTID ARTERIES: Common Carotid Artery: Normal. Maximal flow velocity of 124.1 cm/s. Carotid Bifurcation: Normal. Internal Carotid Artery:Normal. Maximal flow velocity of 63.5 cm/s. External Carotid Artery (proximal branches): Normal. Maximal flow velocity of 87.2 cm/s. ICA/CCA Ratio: 0.5 LEFT CAROTID ARTERIES: Common Carotid Artery: Normal. Maximal flow velocity of 124.1 cm/s. Carotid Bifurcation: Normal. Internal Carotid Artery:Normal. Maximal flow velocity of 47.1 cm/s. External Carotid Artery (proximal branches): Normal. Maximal flow velocity of 46.3 cm/s. ICA/CCA Ratio: 0.4 VERTEBRAL ARTERIES: Right Vertebral Artery: Patent. Antegrade flow. Left Vertebral Artery: Patent. Antegrade flow. OTHER FINDINGS: None. IMPRESSION: Normal Duplex Doppler of the cervical carotid and vertebral arteries.
--- NOTE | 2018-07-11 12:36 | US ---
Date of service: 07/10/2018 PROCEDURE: Bilateral lower extremity venous duplex Doppler. HISTORY: code stroke. r/o DVT COMPARISON: None available. TECHNIQUE: Bilateral common femoral, superficial femoral, popliteal and posterior tibial veins were evaluated. Flow was assessed with color Doppler, compressibility, assessment of phasic flow and augmentation response. FINDINGS: COMMON FEMORAL VEIN: Right CFV: Unremarkable. Left CFV: Unremarkable. SUPERFICIAL FEMORAL VEIN: Right SFV: Unremarkable. Left SFV: Unremarkable. POPLITEAL VEIN: Right Popliteal: Unremarkable. Left Popliteal: Unremarkable. POSTERIOR TIBIAL VEIN: Right PTV: Unremarkable. Left PTV: Unremarkable. OTHER FINDINGS: None. IMPRESSION: No evidence of deep venous thrombosis. A preliminary report was provided by [facility].
[2018-07-11 12:59] LABS: FOLATE 11.9 ng/mL
[2018-07-11] MEDS ORDERED: Lidocaine 1% 5ml Abboject ONE (13:08)
--- NOTE | 2018-07-11 13:25 | PCM.SURG1 ---
Surgeon's Initial Post Op Note - Surgeon's Notes Surgeon: Josue Kincaid MD Accounts Receivable Manager: NONE Type of Anesthesia: Local Pre-Operative Diagnosis: Poor venous access Operative Findings: Patent right basilic vein Post-Operative Diagnosis: Poor venous access Operation Performed: Single lumen picc right arm, 37 cm. Tip is in the SVC. Specimen/Specimens Removed: NONE Estimated Blood Loss: EBL {In ML}: 2 Blood Products Given: N/A Drains Used: No Drains Post-Op Condition: Fair Date of Surgery/Procedure: 07/11/18 Time of Surgery/Procedure: 13:20
--- NOTE | 2018-07-11 13:43 | VASCULAR ---
PROCEDURE: Date of procedure: 07/11/2018 Procedure: 1. Placement of a right arm PICC with ultrasound and fluoroscopic guidance, CPT 22137 2. PICC tip confirmation with spot radiograph and is in the superior vena cava Medications: 1 percent lidocaine Total Fluoro time: 10.1 Seconds Radiation:2.76 MGy EBL: 2 cc HISTORY: Poor venous access TECHNIQUE: Following informed consent and procedure time-out, the patient was placed supine on the interventional table and the right arm prepped and draped in the usual sterile fashion. Ultrasound showed a patent and compressible right basilic vein. After the skin was anesthetized with lidocaine, the basilic vein was accessed with micro micropuncture technique using ultrasound guidance. A guidewire was then advanced under fluoroscopic guidance into the superior vena cava. An image documenting ultrasound guidance for vascular access was permanently saved. The length of the single-lumen 4 Brazilian PICC was trimmed to 37 centimeters and advanced through a peel-away sheath. The PICC was position with tip of PICC confirm a spot radiograph the superior vena cava. The PICC was secured to the patient's skin. The PICC was flushed. A biopatch and sterile dressing was applied. IMPRESSION: Placement of a single-lumen 4 Brazilian PICC trimmed to 37 centimeters via right basilic vein. The tip of the PICC is confirmed with spot radiograph and is in the superior vena cava.
--- NOTE | 2018-07-11 14:12 | CP.PCM.PN ---
Subjective - Date & Time of Evaluation Date of Evaluation: 07/11/18 Time of Evaluation: 09:00 - Subjective Subjective: No recurrence of neuro symptoms Pt states she is back at her baseline neuro status Plan for BLAKE this afternoon Pt denies CP no SOB no abd pain Objective - Vital Signs/Intake and Output Vital Signs (last 24 hours): Temp Pulse Resp BP Pulse Ox 97.9 F 83 18 102/69 96 07/11/18 08:00 07/11/18 10:00 07/11/18 10:00 07/11/18 10:00 07/11/18 10:00 Intake and Output: 07/11/18 07/11/18 06:59 18:59 Intake Total 100 Balance 100 - Medications Medications: Current Medications Atorvastatin Calcium (Lipitor) 40 mg PO DAILY [facility] Last Admin: 07/11/18 09:23 Dose: 40 mg Famotidine (Pepcid) 20 mg IVP BID [facility] Last Admin: 07/11/18 09:23 Dose: 20 mg - Labs Labs: 07/10/18 20:01 07/09/18 18:36 PT 11.4 Seconds (9.8-13.1) 07/09/18 18:36 INR 1.0 07/09/18 18:36 APTT 36.0 Seconds (25.6-37.1) 07/09/18 18:36 - Constitutional Appears: Non-toxic, No Acute Distress - Head Exam Head Exam: ATRAUMATIC, NORMAL INSPECTION, NORMOCEPHALIC - Eye Exam Eye Exam: EOMI, Normal appearance, PERRL Pupil Exam: NORMAL ACCOMODATION - ENT Exam ENT Exam: Mucous Membranes Moist, Normal External Ear Exam - Neck Exam Neck Exam: Full ROM. absent: Meningismus - Respiratory Exam Respiratory Exam: NORMAL BREATHING PATTERN. absent: Wheezes, Respiratory Distress - Cardiovascular Exam Cardiovascular Exam: REGULAR RHYTHM, +S1, +S2 - GI/Abdominal Exam GI & Abdominal Exam: Soft, Normal Bowel Sounds. absent: Tenderness - Back Exam Back Exam: Full ROM. absent: CVA tenderness (L), CVA tenderness (R) - Neurological Exam Neurological Exam: Alert, Awake, CN II-XII Intact, Oriented x3 Neuro motor strength exam: Left Upper Extremity: 5, Right Upper Extremity: 5, Left Lower Extremity: 5, Right Lower Extremity: 5 - Psychiatric Exam Psychiatric exam: Normal Affect, Normal Mood - Skin Skin Exam: Dry, Normal Color, Warm Assessment and Plan - Assessment and Plan (Free Text) Assessment: 22 years old Obese female with hx of Migraine, gastritis and panic attacks comes with a 45 minutes of left chest pain and left upper and lower extremity weakness, associated with SOB. The left lower extremity became weak on her way to the ED. Code Stroke was called in the ED. The NIHSS was 6, and the patient was started on TPA after a negative CT Head. 1. Left Side weakness r/o Acute Stroke s/p TPA patient is neurologically intact at present CT head showed no acute pathology Unable to perform MRI , patient could not fit in our MRI machine , rpt CT of head is negative negative Carotid doppler ECho showed no PFO Follow up with neurology recommendations Cardiology consult appreciated. Plan for BLAKE today rule out PFO hematology consult for hypercoagulable work up ( patient has no prior history of VTE) started Statin PO BP controlled without meds 2. Chest pain, atypical, ACS ruled out Prob musculoskeletal cardiology consult with Dr Sergio Bahena appreciated Echo showed normal wall motion and EF , no PFO Trop negative most likely atypical chest pain 3. Gastritis Pepcid BID 4. Asymptomatic bacteruria denies dysuria No need for treatment now 5.DVT prophylaxis SCD 6. Obesity BMI 50
[2018-07-11] MEDS ORDERED: Propofol 10 mg/ml Inj (20 ML) ONE (14:24)
[2018-07-11] MEDS ORDERED: Etomidate 20 mg/10ml Inj IV ONE (14:25)
[2018-07-11] MEDS ORDERED: Midazolam 2 MG/2 ML VIAL ONE ×2 (14:25→14:42)
[2018-07-11] MEDS ORDERED: Propofol 10 mg/ml 1,000 MG/100 ML VIAL ONE (14:45)
[2018-07-11] MEDS ORDERED: Chlorhexidine Gluconate 1 APPL/PKT TP ONE (15:03)
--- NOTE | 2018-07-11 15:31 | CP.PCM.PN ---
Subjective - Date & Time of Evaluation Date of Evaluation: 07/11/18 Time of Evaluation: 15:28 - Subjective Subjective: informed consent obtained and bedside carolynn performed. pt wo further weakness or cp. Objective - Vital Signs/Intake and Output Vital Signs (last 24 hours): Temp Pulse Resp BP Pulse Ox 97.9 F 83 18 102/69 96 07/11/18 08:00 07/11/18 10:00 07/11/18 10:00 07/11/18 10:00 07/11/18 10:00 Intake and Output: 07/11/18 07/11/18 06:59 18:59 Intake Total 100 Balance 100 - Medications Medications: Current Medications Aspirin (Ecotrin) 325 mg PO DAILY [facility] Atorvastatin Calcium (Lipitor) 40 mg PO DAILY [facility] Last Admin: 07/11/18 09:23 Dose: 40 mg Famotidine (Pepcid) 20 mg IVP BID [facility] Last Admin: 07/11/18 09:23 Dose: 20 mg - Labs Labs: 07/10/18 20:01 07/09/18 18:36 PT 11.4 Seconds (9.8-13.1) 07/09/18 18:36 INR 1.0 07/09/18 18:36 APTT 36.0 Seconds (25.6-37.1) 07/09/18 18:36 - Constitutional Appears: Well - Head Exam Head Exam: ATRAUMATIC, NORMAL INSPECTION, NORMOCEPHALIC - Eye Exam Eye Exam: EOMI, Normal appearance, PERRL. absent: Conjunctival injection, Nystagmus, Periorbital swelling, Periorbital tenderness, Scleral icterus Pupil Exam: NORMAL ACCOMODATION, PERRL - ENT Exam ENT Exam: Mucous Membranes Moist, Normal Exam. absent: Mucous Membranes Dry, Normal External Ear Exam, Normal Oropharynx, TM's Normal Bilaterally - Neck Exam Neck Exam: Full ROM, Normal Inspection. absent: Lymphadenopathy, Meningismus, Tenderness, Thyromegaly - Respiratory Exam Respiratory Exam: Clear to Ausculation Bilateral, NORMAL BREATHING PATTERN. absent: Accessory Muscle Use, Chest Wall Tenderness, Decreased Breath Sounds, Prolonged Expiratory Phase, Rales, Rhonchi, Wheezes, Respiratory Distress, Stridor - Cardiovascular Exam Cardiovascular Exam: REGULAR RHYTHM, +S1, +S2, Murmur. absent: Bradycardia, Tachycardia, Clicks, Diastolic murmur, Gallop, Irregular Rhythm, JVD, RRR, Rubs, +S4 - GI/Abdominal Exam GI & Abdominal Exam: Soft, Normal Bowel Sounds. absent: Bruit, Distended, Firm, Guarding, Rigid, Tenderness, Diminished Bowel Sounds, Hernia, Hyperactive Bowel Sounds, Hypoactive Bowel Sounds, Organomegaly, Pulsatile Mass, Rebound, Mass - Extremities Exam Extremities Exam: Full ROM, Normal Capillary Refill, Normal Inspection. absent: Calf Tenderness, Joint Swelling, Pedal Edema, Tenderness - Back Exam Back Exam: NORMAL INSPECTION. absent: CVA tenderness (L), CVA tenderness (R), Full ROM, muscle spasm, paraspinal tenderness, rash noted, tenderness, vertebral tenderness - Neurological Exam Neurological Exam: Alert, Awake, CN II-XII Intact, Normal Gait, Oriented x3. absent: Abnormal Gait, Altered, Motor Sensory Deficit, Reflexes Normal - Psychiatric Exam Psychiatric exam: Normal Affect, Normal Mood. absent: Agitated, Anxious, Depressed, Flat Affect, Homicidal Ideation, Manic, Suicidal Ideation - Skin Skin Exam: Dry, Intact, Normal Color, Warm. absent: Abrasion, Cyanosis, Diaphoretic, Erythema, Mottled, Pallor, Pallor, Petechiae, Rash, Urticaria, Vesicles Assessment and Plan (1) Family history of hypercoagulable state Status: Acute (2) CVA (cerebral vascular accident) Status: Acute - Assessment and Plan (Free Text) Plan: carolynn did NOT reveal any pfo, asd (negative saline contrast). No lambles, fibroelastoma, no thrombi. aortic arch and descend aorta no atherosclerosis. tele no arrythmia cont anticoag and await hypercoag w/u. 75 min total care time.
--- NOTE | 2018-07-11 16:02 | CP.PCM.CON ---
History of Present Illness - History of Present Illness History of Present Illness: 22 year old female with no significant past medical history presents to the ED for left sided weakness. Patient reports she finished eating 45 minutes ago when she started feeling chest pain, shortness of breath and left upper and lower extremity weakness. he hx is obtained from the patient and after review of the medical records. This is a 22 years old Obese female with hx of Migraine, gastritis and panic attacks. She comes with a 45 minutes of left chest pain and left upper and lower extremity weakness. she stated that she was cooking when the sudden unset of the sharp left chest pain radiating to the back started. This was associated with SOB. The left lower extremity became weak on her way to the ED and at the same time she began to feel sleepy. Initially in the ED on Sitting up she felt dizzy. Code Stroke was called in the ED . The NIHSS was 6, and the patient was started on TPA after a negative CT Head. 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 FH: Father with 2 mild strokes at 32 years and Heart attack at 32 years; RA Mother with DM And HTN Allergies: PCN; [place] Past Patient History - Infectious Disease Hx of Infectious Diseases: None - Past Medical History & Family History Past Medical History?: Yes - Past Social History Smoking Status: Never Smoked Chewing Tobacco Use: No Cigar Use: No Alcohol: None Drugs: Denies Home Situation {Lives}: With Family - CARDIAC Hx Cardiac Disorders: No - PULMONARY Hx Respiratory Disorders: No - NEUROLOGICAL Hx Migraine: Yes - HEENT Hx HEENT Problems: No - RENAL Hx Chronic Kidney Disease: No - ENDOCRINE/METABOLIC Hx Endocrine Disorders: No - HEMATOLOGICAL/ONCOLOGICAL Hx Blood Disorders: No - INTEGUMENTARY Hx Dermatological Problems: Yes Other/Comment: folliculitis - MUSCULOSKELETAL/RHEUMATOLOGICAL Hx Musculoskeletal Disorders: Yes Other/Comment: carpel tunnel - left - GASTROINTESTINAL Hx Gastritis: Yes - GENITOURINARY/GYNECOLOGICAL Hx Genitourinary Disorders: No - PSYCHIATRIC Hx Panic Symptoms: Yes Hx Substance Use: No - SURGICAL HISTORY Hx Tonsillectomy: Yes (and adenoidectomy) - ANESTHESIA Hx Anesthesia: Yes Hx Anesthesia Reactions: No Hx Malignant Hyperthermia: No Meds Allergies/Adverse Reactions: Allergies Allergy/AdvReac Type Severity Reaction Status Date / Time Penicillins Allergy RASH Verified 07/09/18 18:00 pineapple Allergy SWELLING Verified 07/09/18 18:00 - Medications Medications: Current Medications Aspirin (Ecotrin) 325 mg PO DAILY [facility] Atorvastatin Calcium (Lipitor) 40 mg PO DAILY [facility] Last Admin: 07/11/18 09:23 Dose: 40 mg Famotidine (Pepcid) 20 mg IVP BID [facility] Last Admin: 07/11/18 09:23 Dose: 20 mg Results - Vital Signs Recent Vital Signs: Last Vital Signs Temp 98.0 F 07/11/18 15:55 Pulse 91 H 07/11/18 15:55 Resp 23 07/11/18 15:55 BP 109/67 07/11/18 15:55 Pulse Ox 99 07/11/18 15:55 - Labs Result Diagrams: 07/10/18 20:01 07/09/18 18:36 Labs: Laboratory Results - last 24 hr 07/10/18 07/10/18 07/10/18 20:01 20:01 20:01 WBC 9.1 RBC 4.97 Hgb 13.4 Hct 41.2 MCV 82.9 MCH 27.0 MCHC 32.6 L RDW 13.7 Plt Count 189 MPV 10.1 Neut % (Auto) 64.3 Lymph % (Auto) 27.8 [place] % (Auto) 5.7 Eos % (Auto) 1.7 Baso % (Auto) 0.5 Neut # (Auto) 5.8 Lymph # (Auto) 2.5 [place] # (Auto) 0.5 Eos # (Auto) 0.2 Baso # (Auto) 0.0 Magnesium 2.0 Troponin I < 0.0120 Vitamin B12 405 25-OH Vitamin D Total 21.1 L Folate 11.9 07/11/18 04:30 WBC RBC Hgb Hct MCV MCH MCHC RDW Plt Count MPV Neut % (Auto) Lymph % (Auto) [place] % (Auto) Eos % (Auto) Baso % (Auto) Neut # (Auto) Lymph # (Auto) [place] # (Auto) Eos # (Auto) Baso # (Auto) Magnesium Troponin I < 0.0120 Vitamin B12 25-OH Vitamin D Total Folate
--- NOTE | 2018-07-11 17:22 | CARD ---
APPROVED REPORT Date of service: 07/11/2018 EXAM: Transesophageal echocardiogram with color flow Doppler. INDICATION CVA/TIA Echo Enhancing Agent Indication: Rule Out Septal Defect Agent/Amount Used: Agitated Saline RISK FACTORS Obesity Family History Reason For Test : Rule out cardiac source of emboli. PROCEDURE After obtaining informed consent, patient underwent transesophageal echo in the ICU. Type of Sedation : Conscious Sedation Sedation was provided by anesthesiologist. Sedation was achieved with intravenously. Transesophageal probe was inserted and advanced into esophagus without difficulty. Echo enhancement agent administered: Agitated Saline The BLAKE was performed complications. Throughout the procedure, the blood pressure, pulse oximetry, cardiac rhythm, and rate were monitored. The patient tolerated the procedure without adverse effects. Recovery from conscious sedation was uneventful and vital signs were stable. LEFT VENTRICLE The left ventricle is normal size. There is normal left ventricular wall thickness. The left ventricular function is normal. The left ventricular ejection fraction is within the normal range. No regional wall motion abnormalities noted. The left ventricular diastolic function is normal. No left ventricle thrombus noted on this study. There is no ventricular septal defect visualized. There is no left ventricular aneurysm. There is no mass noted in the left ventricle. RIGHT VENTRICLE The right ventricle is normal size. There is normal right ventricular wall thickness. The right ventricular systolic function is normal. ATRIA The left atrium size is normal. The right atrium size is normal. The interatrial septum is intact with no evidence for an atrial septal defect. AORTIC VALVE The aortic valve is normal in structure. No aortic regurgitation is present. There is no aortic valvular stenosis. There is no aortic valvular vegetation. MITRAL VALVE The mitral valve is normal in structure. There is no evidence of mitral valve prolapse. There is no mitral valve stenosis. There is no mitral valve regurgitation noted. TRICUSPID VALVE The tricuspid valve is normal in structure. There is no tricuspid valve regurgitation noted. There is no tricuspid valve prolapse or vegetation. There is no tricuspid valve stenosis. PULMONIC VALVE The pulmonary valve is normal in structure. There is no pulmonic valvular regurgitation. There is no pulmonic valvular stenosis. GREAT VESSELS The aortic root is normal in size. The ascending aorta is normal in size. PERICARDIAL EFFUSION The pericardium appears normal. There is no pleural effusion. <Conclusion> No thrombus in LA body. NO PFO OR ASD NO LAMBLES NO ATHERSCLEROSIS IN THE ASCENDING AORTA OR ARCH
--- NOTE | 2018-07-11 22:00 | PN ---
DATE: 07/11/2018 CRITICAL CARE PROGRESS NOTE LOCATION: The patient is in room 425. TIME SPENT: 35 minutes. The patient is seen and evaluated at the bedside. Past medical, surgical and social history reviewed. Case discussed in multidisciplinary ICU rounds this morning. SUBJECTIVE: A 22-year-old female with obesity, past medical history significant for gastritis, migraine, plantar fasciitis, eczema, panniculitis, carpal tunnel syndrome, and panic attacks. Admitted through emergency room, complaining of sudden onset of pain on the left side of the chest pain, radiating to the back associated with shortness of breath. Status post stroke, NIHSS 6, given tPA. Admitted to ICU for post tPA protocol. Overnight uneventful. Remained normotensive. Afebrile. No seizure activity. Improved strength on the left arm and left leg. This morning, alert, awake, follows commands appropriately. Denies headache, shortness of breath, chest pain, or palpitation. No abdominal discomfort. No diarrhea. No dysuria. PHYSICAL EXAMINATION: VITAL SIGNS: Temperature 98.4, heart rate 70 and regular, blood pressure 134/86. Intake 950, output 800, positive balance of 150. Weight 310 pounds. HEAD, EYES, EARS, NOSE AND THROAT: Pupils are reactive. Conjunctivae pink. Sclerae are white. NECK: Supple. Neck is short. Reduced oropharyngeal air space. CHEST: Bilateral breath sounds. Clear to auscultation. HEART: Rhythm regular. S1, S2 normal intensity. No S3, S4 gallop. No audible murmur. ABDOMEN: Bowel sounds present. Soft. EXTREMITIES: No clubbing, cyanosis, or edema. No rash. No palpable cord. NEUROLOGIC: Cranial nerves are intact. No motor deficit. No sensory impairment. Plantar flexor. CURRENT MEDICATIONS: Pepcid 20 mg IV twice daily, Lipitor 40 mg daily. LABORATORY DATA: WBC 9.1, hemoglobin 13.4, hematocrit 41.2, platelet count 189. PT 11.4, INR 1, and PTT 36. SMA-7: Sodium 140, potassium 3.8, chloride of 107, CO2 of 23, blood urea nitrogen 11, creatinine 0.6, random glucose 121, hemoglobin A1c 5.9, calcium 9.6, magnesium 2. Total bilirubin 0.4, AST 27, ALT 32, alkaline phosphatase 77. Troponin less than 0.01. Total protein 7.7, albumin 4.2. Triglycerides 260, cholesterol 131, LDL 75, HDL 29. Vitamin B12 is 405. Folate level is pending. Urinalysis: Rbc's 21, wbc's 34. CT head on admission and repeat on 07/10/2018 shows no acute abnormality. Echocardiogram, transthoracic, official report is pending. Carotid ultrasound report is pending. Extremity ultrasound shows no deep venous thrombosis. IMPRESSION AND PLAN: A 22-year-old male, presenting with retrosternal pain associated with shortness of breath and weakness of left upper and lower extremity, status post tissue plasminogen activator. Remains hemodynamically stable. No further weakness of the left arm or left leg. CT head reportedly shows no acute abnormality. MRI and MRA are pending. Scheduled for transesophageal echocardiography this afternoon. Continue Lipitor for hypertriglyceridemia. Vasculitic workup in progress. Milton Valadez MD
[2018-07-12 05:46] LABS: HEMOGLOBIN 12.6 g/dL (12.0-16.0); MEAN CELL VOLUME 82.6 fl (81.0-99.0); MEAN CORPUSCULAR HEMOGLOBIN 27.6 pg (27.0-31.0); MEAN CORPUSCULAR HGB CONC 33.4 g/dL (33.0-37.0); RBC 4.58 Mil/uL (3.80-5.20); RED CELL DISTRIBUTION WIDTH 13.5 % (11.5-14.5)
[2018-07-12 05:59] LABS: BLOOD UREA NITROGEN 9 mg/dl (7-17); CALCIUM 9.5 mg/dL (8.4-10.2); GFR NON-AFRICAN AMERICAN > 60
[2018-07-12] MEDS ORDERED: Aspirin 325 mg EC Tablets PO SCH (09:00)
--- NOTE | 2018-07-12 10:04 | CP.PCM.CON ---
History of Present Illness - History of Present Illness History of Present Illness: 22 year old female with no past medical history presenting with left arm weakness and left sided paresthesia, admitted with code stroke s/p tPA with concern for hypercoagulable state. The patient notes to sudden left arm weakness and left sided paresthesias while cooking. She sat down and tried to eat but began having shortness of breath and chest pain and came to the ER. She was treated with tPA in the ER and notes to improvement in her symptoms. She denies abnormal bleeding and bruising. Past medical history: None Past surgical history: None Family history: Father with CVA x 2 and PR in 30s and 40s, uncle may have had PR < 50 Social history: Denies tobacco, alcohol, and illicit drug use. Allergies: Penicillins Review of systems: All remaining review of systems including HEENT, cardiovascular, respiratory, gastrointestinal, genitourinary, musculoskeletal, dermatologic, neurologic, and psychiatric are negative unless mentioned in the HPI. Past Patient History - Infectious Disease Hx of Infectious Diseases: None - Past Medical History & Family History Past Medical History?: Yes - Past Social History Smoking Status: Never Smoked Chewing Tobacco Use: No Cigar Use: No Alcohol: None Drugs: Denies Home Situation {Lives}: With Family - CARDIAC Hx Cardiac Disorders: No - PULMONARY Hx Respiratory Disorders: No - NEUROLOGICAL Hx Migraine: Yes - HEENT Hx HEENT Problems: No - RENAL Hx Chronic Kidney Disease: No - ENDOCRINE/METABOLIC Hx Endocrine Disorders: No - HEMATOLOGICAL/ONCOLOGICAL Hx Blood Disorders: No - INTEGUMENTARY Hx Dermatological Problems: Yes Other/Comment: folliculitis - MUSCULOSKELETAL/RHEUMATOLOGICAL Hx Musculoskeletal Disorders: Yes Other/Comment: carpel tunnel - left - GASTROINTESTINAL Hx Gastritis: Yes - GENITOURINARY/GYNECOLOGICAL Hx Genitourinary Disorders: No - PSYCHIATRIC Hx Panic Symptoms: Yes Hx Substance Use: No - SURGICAL HISTORY Hx Tonsillectomy: Yes (and adenoidectomy) - ANESTHESIA Hx Anesthesia: Yes Hx Anesthesia Reactions: No Hx Malignant Hyperthermia: No Meds Allergies/Adverse Reactions: Allergies Allergy/AdvReac Type Severity Reaction Status Date / Time Penicillins Allergy RASH Verified 07/09/18 18:00 pineapple Allergy SWELLING Verified 07/09/18 18:00 - Medications Medications: Current Medications Aspirin (Ecotrin) 325 mg PO DAILY [facility] Last Admin: 07/12/18 08:25 Dose: 325 mg Atorvastatin Calcium (Lipitor) 40 mg PO DAILY [facility] Last Admin: 07/12/18 08:25 Dose: 40 mg Famotidine (Pepcid) 20 mg IVP BID [facility] Last Admin: 07/12/18 08:25 Dose: 20 mg Physical Exam - Head Exam Head Exam: ATRAUMATIC - Eye Exam Eye Exam: Normal appearance - ENT Exam ENT Exam: Mucous Membranes Dry - Respiratory Exam Respiratory Exam: NORMAL BREATHING PATTERN - Cardiovascular Exam Cardiovascular Exam: +S1, +S2 - GI/Abdominal Exam GI & Abdominal Exam: Normal Bowel Sounds - Extremities Exam Extremities exam: Positive for: normal inspection - Neurological Exam Neurological exam: Oriented x3 - Psychiatric Exam Psychiatric exam: Normal Affect, Normal Mood - Skin Skin Exam: Warm Results - Vital Signs Recent Vital Signs: Last Vital Signs Temp 98.3 F 07/12/18 08:00 Pulse 73 07/12/18 08:00 Resp 15 07/12/18 08:00 BP 134/74 07/12/18 08:00 Pulse Ox 97 07/12/18 08:00 - Labs Result Diagrams: 07/12/18 04:25 07/12/18 04:25 Labs: Laboratory Results - last 24 hr 07/10/18 07/10/18 07/11/18 20:01 20:01 04:30 WBC RBC Hgb Hct MCV MCH MCHC RDW Plt Count ESR D-Dimer, Quantitative Protein C Activity TNP Sodium Potassium Chloride Carbon Dioxide Anion Gap BUN Creatinine Est GFR ( Amer) Est GFR (Non-Af Amer) Random Glucose Calcium RBC Magnesium TNP 25-OH Vitamin D Total 21.1 L Folate 11.9 Rheumatoid Factor TNP KIM Screen TNP KIM Titer TNP KIM Pattern TNP SS-A Antibody TNP SS-B Antibody TNP Sm (Espinoza) Antibody TNP SM/S[employer]IOR [employer]STRU[employer]URE ENGINEER Antibody TNP Scl-70 Antibody TNP Anti-ds DNA Titer (Crith) TNP Anti-ds DNA (Crithidia) TNP Ribosomal P Prot Ab TNP Anti-Mitochondrial Titr TNP Anti-Mitochondrial Ab TNP Actin IgG Antibody TNP Striated Muscle Ab TNP Myocardial Ab Titer TNP Anti-Myocardial Ab TNP Reticulin Ab Titer TNP Reticulin IgA Antibody TNP Thyroperoxidase Ab TNP Anti-Parietal Cell Ab TNP Complement C3 TNP Complement C4 TNP 07/11/18 07/12/18 07/12/18 14:30 04:25 04:25 WBC 8.0 RBC 4.58 Hgb 12.6 Hct 37.8 MCV 82.6 MCH 27.6 MCHC 33.4 RDW 13.5 Plt Count 195 ESR 29 H D-Dimer, Quantitative < 200 Protein C Activity Sodium Potassium Chloride Carbon Dioxide Anion Gap BUN Creatinine Est GFR ( Amer) Est GFR (Non-Af Amer) Random Glucose Calcium RBC Magnesium 25-OH Vitamin D Total Folate Rheumatoid Factor KIM Screen KIM Titer KIM Pattern SS-A Antibody SS-B Antibody Sm (Espinoza) Antibody SM/SENIOR INFRASTRUCTURE ENGINEER Antibody Scl-70 Antibody Anti-ds DNA Titer (Crith) Anti-ds DNA (Crithidia) Ribosomal P Prot Ab Anti-Mitochondrial Titr Anti-Mitochondrial Ab Actin IgG Antibody Striated Muscle Ab Myocardial Ab Titer Anti-Myocardial Ab Reticulin Ab Titer Reticulin IgA Antibody Thyroperoxidase Ab Anti-Parietal Cell Ab Complement C3 Complement C4 07/12/18 04:25 WBC RBC Hgb Hct MCV MCH MCHC RDW Plt Count ESR D-Dimer, Quantitative Protein C Activity Sodium 142 Potassium 3.8 Chloride 105 Carbon Dioxide 26 Anion Gap 15 BUN 9 Creatinine 0.7 Est GFR ( Amer) > 60 Est GFR (Non-Af Amer) > 60 Random Glucose 87 Calcium 9.5 RBC Magnesium 25-OH Vitamin D Total Folate Rheumatoid Factor KIM Screen KIM Titer KIM Pattern SS-A Antibody SS-B Antibody Sm (Espinoza) Antibody SM/SENIOR INFRASTRUCTURE ENGINEER Antibody Scl-70 Antibody Anti-ds DNA Titer (Crith) Anti-ds DNA (Crithidia) Ribosomal P Prot Ab Anti-Mitochondrial Titr Anti-Mitochondrial Ab Actin IgG Antibody Striated Muscle Ab Myocardial Ab Titer Anti-Myocardial Ab Reticulin Ab Titer Reticulin IgA Antibody Thyroperoxidase Ab Anti-Parietal Cell Ab Complement C3 Complement C4 Assessment & Plan (1) CVA (cerebral vascular accident) Assessment and Plan: rule out inherited thrombophilia; w/u sent ? hypercoagulable from obesity s/p tPA neurology f/u Thank you for this interesting consult. Status: Acute Priority: High
--- NOTE | 2018-07-12 10:08 | CP.PCM.PN ---
Subjective - Date & Time of Evaluation Date of Evaluation: 07/12/18 Time of Evaluation: 09:45 - Subjective Subjective: Feeling better. Objective - Vital Signs/Intake and Output Vital Signs (last 24 hours): Temp Pulse Resp BP Pulse Ox 98.3 F 73 15 134/74 97 07/12/18 08:00 07/12/18 08:00 07/12/18 08:00 07/12/18 08:00 07/12/18 08:00 Intake and Output: 07/12/18 07/12/18 06:59 18:59 Intake Total 300 Output Total 1100 Balance -800 - Medications Medications: Current Medications Aspirin (Ecotrin) 325 mg PO DAILY [facility] Last Admin: 07/12/18 08:25 Dose: 325 mg Atorvastatin Calcium (Lipitor) 40 mg PO DAILY [facility] Last Admin: 07/12/18 08:25 Dose: 40 mg Famotidine (Pepcid) 20 mg IVP BID [facility] Last Admin: 07/12/18 08:25 Dose: 20 mg - Labs Labs: 07/12/18 04:25 07/12/18 04:25 PT 11.4 Seconds (9.8-13.1) 07/09/18 18:36 INR 1.0 07/09/18 18:36 APTT 36.0 Seconds (25.6-37.1) 07/09/18 18:36 - Head Exam Head Exam: ATRAUMATIC - Eye Exam Eye Exam: Normal appearance - ENT Exam ENT Exam: Mucous Membranes Dry - Respiratory Exam Respiratory Exam: NORMAL BREATHING PATTERN - Cardiovascular Exam Cardiovascular Exam: +S1, +S2 - GI/Abdominal Exam GI & Abdominal Exam: Normal Bowel Sounds - Extremities Exam Extremities Exam: Normal Inspection - Neurological Exam Neurological Exam: Oriented x3 - Psychiatric Exam Psychiatric exam: Normal Affect, Normal Mood - Skin Skin Exam: Warm Assessment and Plan (1) CVA (cerebral vascular accident) Assessment & Plan: inherited thrombophilia w/u sent ?hypercoagulable from obesity neurology f/u Status: Acute
--- NOTE | 2018-07-12 10:35 | CARD ---
APPROVED REPORT Date of service: 07/11/2018 <Conclusion> Normal sinus rhythm Normal ECG
[2018-07-12 13:08] VITALS: TEMP 98.4
[2018-07-12 14:12] VITALS: BP 139/67; PULSE 91; RESP 25; O2SAT 97
--- NOTE | 2018-07-12 14:50 | CP.PCM.DIS ---
Provider - Provider Date of Admission: 07/09/18 19:21 Attending physician: Ab Ring Consults: Neuro: DR Covarrubias Cardio: Dr Bahena Hematology: Dr Rae Time Spent in preparation of Discharge (in minutes): 30 Diagnosis - Discharge Diagnosis (1) CVA (cerebral vascular accident) Status: Acute Priority: High (2) Chest pain Status: Acute Priority: High (3) Family history of hypercoagulable state Status: Chronic (4) Morbid obesity with BMI of 50.0-59.9, adult Status: Chronic Hospital Course - Lab Results Lab Results: Micro Results 07/09/18 08:54 Naris MRSA Culture (Admit) - Final MRSA NOT DETECTED Most Recent Lab Values WBC 8.0 K/uL (4.8-10.8) 07/12/18 04:25 RBC 4.58 Mil/uL (3.80-5.20) 07/12/18 04:25 Hgb 12.6 g/dL (12.0-16.0) 07/12/18 04:25 Hct 37.8 % (34.0-47.0) 07/12/18 04:25 MCV 82.6 fl (81.0-99.0) 07/12/18 04:25 MCH 27.6 pg (27.0-31.0) 07/12/18 04:25 MCHC 33.4 g/dL (33.0-37.0) 07/12/18 04:25 RDW 13.5 % (11.5-14.5) 07/12/18 04:25 Plt Count 195 K/uL (130-400) 07/12/18 04:25 MPV 10.1 fl (7.2-11.7) 07/10/18 20:01 Neut % (Auto) 64.3 % (50.0-75.0) 07/10/18 20:01 Lymph % (Auto) 27.8 % (20.0-40.0) 07/10/18 20:01 [place] % (Auto) 5.7 % (0.0-10.0) 07/10/18 20:01 Eos % (Auto) 1.7 % (0.0-4.0) 07/10/18 20:01 Baso % (Auto) 0.5 % (0.0-2.0) 07/10/18 20:01 Neut # (Auto) 5.8 K/uL (1.8-7.0) 07/10/18 20:01 Lymph # (Auto) 2.5 K/uL (1.0-4.3) 07/10/18 20:01 [place] # (Auto) 0.5 K/uL (0.0-0.8) 07/10/18 20:01 Eos # (Auto) 0.2 K/uL (0.0-0.7) 07/10/18 20:01 Baso # (Auto) 0.0 K/uL (0.0-0.2) 07/10/18 20:01 ESR 29 mm/hr (0-20) H 07/11/18 14:30 PT 11.4 Seconds (9.8-13.1) 07/09/18 18:36 INR 1.0 07/09/18 18:36 APTT 36.0 Seconds (25.6-37.1) 07/09/18 18:36 D-Dimer, Quantitative < 200 ng/mlDDU (0-230) 07/12/18 04:25 Protein C Activity TNP 07/11/18 04:30 Sodium 142 mmol/l (132-148) 07/12/18 04:25 Potassium 3.8 MMOL/L (3.6-5.0) 07/12/18 04:25 Chloride 105 mmol/L (98-107) 07/12/18 04:25 Carbon Dioxide 26 mmol/L (22-30) 07/12/18 04:25 Anion Gap 15 (10-20) 07/12/18 04:25 BUN 9 mg/dl (7-17) 07/12/18 04:25 Creatinine 0.7 mg/dl (0.7-1.2) 07/12/18 04:25 Est GFR ( Amer) > 60 07/12/18 04:25 Est GFR (Non-Af Amer) > 60 07/12/18 04:25 POC Glucose (mg/dL) 121 mg/dL (65-110) H 07/09/18 18:08 Random Glucose 87 mg/dL (65-105) 07/12/18 04:25 Hemoglobin A1c 5.9 % (4.2-6.5) 07/09/18 18:36 Calcium 9.5 mg/dL (8.4-10.2) 07/12/18 04:25 Magnesium 2.0 MG/DL (1.6-2.3) 07/10/18 20:01 RBC Magnesium TNP 07/11/18 04:30 Total Bilirubin 0.4 mg/dl (0.2-1.3) 07/09/18 18:36 AST 27 U/L (14-36) 07/09/18 18:36 ALT 32 U/L (9-52) 07/09/18 18:36 Alkaline Phosphatase 77 U/L (38-126) 07/09/18 18:36 Troponin I < 0.0120 ng/mL (0.00-0.120) 07/11/18 04:30 Total Protein 7.7 G/DL (6.3-8.2) 07/09/18 18:36 Albumin 4.2 g/dL (3.5-5.0) 07/09/18 18:36 Globulin 3.5 gm/dL (2.2-3.9) 07/09/18 18:36 Albumin/Globulin Ratio 1.2 (1.0-2.1) 07/09/18 18:36 Triglycerides 260 mg/DL (0-149) H D 07/09/18 18:36 Cholesterol 131 mg/dL (0-199) 07/09/18 18:36 LDL Cholesterol Direct 75 mg/dL (0-129) 07/09/18 18:36 HDL Cholesterol 29 MG/DL (30-70) L 07/09/18 18:36 Vitamin B12 405 pg/mL (239-931) 07/10/18 20:01 25-OH Vitamin D Total 21.1 NG/ML (30.0-100.0) L 07/10/18 20:01 Folate 11.9 ng/mL 07/10/18 20:01 Urine Color Yellow (YELLOW) 07/10/18 08:59 Urine Clarity Slighty-cloudy (Clear) 07/10/18 08:59 Urine pH 6.0 (5.0-8.0) 07/10/18 08:59 Ur Specific [place] 1.025 (1.003-1.030) 07/10/18 08:59 Urine Protein Negative mg/dL (NEGATIVE) 07/10/18 08:59 Urine Glucose (UA) Neg mg/dL (Normal) 07/10/18 08:59 Urine Ketones Negative mg/dL (NEGATIVE) 07/10/18 08:59 Urine Blood Large (NEGATIVE) 07/10/18 08:59 Urine Nitrate Negative (NEGATIVE) 07/10/18 08:59 Urine Bilirubin Negative (NEGATIVE) 07/10/18 08:59 Urine Urobilinogen 0.2-1.0 mg/dL (0.2-1.0) 07/10/18 08:59 Ur Leukocyte Esterase Large [place]/uL (Negative) 07/10/18 08:59 Urine RBC (Auto) 21 /hpf (0-3) H 07/10/18 08:59 Urine Microscopic WBC 34 /hpf (0-5) H 07/10/18 08:59 Ur Squamous Epith Cells 1 /hpf (0-5) 07/10/18 08:59 Urine Bacteria Few (<OCC) H 07/10/18 08:59 Rheumatoid Factor TNP 07/11/18 04:30 KIM Screen TNP 07/11/18 04:30 KIM Titer TNP 07/11/18 04:30 KIM Pattern TNP 07/11/18 04:30 SS-A Antibody TNP 07/11/18 04:30 SS-B Antibody TNP 07/11/18 04:30 Sm (Espinoza) Antibody TNP 07/11/18 04:30 SM/GYMNASIUM TEACHER Antibody TNP 07/11/18 04:30 Scl-70 Antibody TNP 07/11/18 04:30 Anti-ds DNA Titer (Crith) TNP 07/11/18 04:30 Anti-ds DNA (Crithidia) TNP 07/11/18 04:30 Ribosomal P Prot Ab TNP 07/11/18 04:30 Anti-Mitochondrial Titr TNP 07/11/18 04:30 Anti-Mitochondrial Ab TNP 07/11/18 04:30 Actin IgG Antibody TNP 07/11/18 04:30 Striated Muscle Ab TNP 07/11/18 04:30 Myocardial Ab Titer TNP 07/11/18 04:30 Anti-Myocardial Ab TNP 07/11/18 04:30 Reticulin Ab Titer TNP 07/11/18 04:30 Reticulin IgA Antibody TNP 07/11/18 04:30 Thyroperoxidase Ab TNP 07/11/18 04:30 Anti-Parietal Cell Ab TNP 07/11/18 04:30 Complement C3 TNP 07/11/18 04:30 Complement C4 TNP 07/11/18 04:30 Blood Type A POSITIVE 07/09/18 18:30 Blood Type Confirm A POSITIVE 07/09/18 19:42 Antibody Screen Negative 07/09/18 18:30 BBK History Checked No verified bt 07/09/18 18:30 - Hospital Course Hospital Course: 22 years old Obese female with hx of Migraine, gastritis and panic attacks comes with a 45 minutes of left chest pain and left upper and lower extremity weakness, associated with SOB. The left lower extremity became weak on her way to the ED. Code Stroke was called in the ED. The NIHSS was 6, and the patient was started on TPA after a negative CT Head. Patient Left sided weakness resolved. Neuro and Cardio consulted. BLAKE done was negative. 1. Acute CVA s/p TPA patient is neurologically intact at present CT head showed no acute pathology Unable to perform MRI , patient could not fit in our MRI machine , rpt CT of head is negative negative Carotid doppler ECho showed no PFO hematology consult for hypercoagulable work up ( labs sent results pending - pt will ff up results in the clinic) started Statin PO and ASA BP controlled without meds 2. Chest pain, atypical, ACS ruled out Prob musculoskeletal cardiology consult with Dr Sergio Bahena appreciated Echo showed normal wall motion and EF , no PFO Trop negative 3. Gastritis Pepcid BID 4. Asymptomatic bacteruria denies dysuria No need for treatment now 5.DVT prophylaxis SCD 6. Obesity BMI 50 counseled to lose weight Discharge Exam - Head Exam Head Exam: ATRAUMATIC, NORMAL INSPECTION, NORMOCEPHALIC - Eye Exam Eye Exam: EOMI, Normal appearance, PERRL Pupil Exam: NORMAL ACCOMODATION - ENT Exam ENT Exam: Mucous Membranes Moist, Normal External Ear Exam - Neck Exam Neck exam: Full Rom - Respiratory Exam Respiratory Exam: NORMAL BREATHING PATTERN. absent: Respiratory Distress - Cardiovascular Exam Cardiovascular Exam: REGULAR RHYTHM, +S1, +S2 - GI/Abdominal Exam GI & Abdominal Exam: Normal Bowel Sounds, Soft. absent: Tenderness - Extremities Exam Extremities exam: full ROM, normal capillary refill, pedal pulses present - Back Exam Back exam: FULL ROM. absent: CVA tenderness (L), CVA tenderness (R) - Neurological Exam Neurological exam: Alert, CN II-XII Intact, Normal Gait, Oriented x3, Reflexes Normal - Psychiatric Exam Psychiatric exam: Normal Affect, Normal Mood - Skin Skin Exam: Dry, Normal Color, Warm Discharge Plan - Discharge Medications Prescriptions: Aspirin [Aspirin EC] 325 mg PO DAILY #30 ect Atorvastatin [Lipitor] 10 mg PO DAILY #30 tab - Follow Up Plan Condition: GOOD Disposition: HOME/ ROUTINE Instructions: Stroke, Lowering the Risk of Having Another Stroke, Medicines After an Ischemic Stroke, Recovery After Stroke Additional Instructions: ff up at [facility] 1 wk need to ff up pending hypercoagulable work up at the clinic cont ASA and statin
--- NOTE | 2018-07-12 15:02 | PQF ---
PROVIDER RESPONSE TEXT: Acute CVA -clinically unable to determine, further work up needed REVIEWER QUERY TEXT: Rule Out Condition Clarification Pt has documented CVA noted as ?rule out? Please clarify status of this condition AFTER WORKUP -Patient has condition -Condition was ruled out Please provide corresponding diagnosis for patient's clinical picture and associated treatment -Patient had condition which is now resolved -Other (please specify) -Clinically unable to determine -Unknown The patient's Clinical Indicators include: She comes with a 45 associated with SOB. The left lower extremity became weak on her way to the ED and at the same time she began to feel sleepy. Initially in the ED on Sitting up she felt dizzy. Code Stroke was called in the ED . The NIHSS was 6, and the patient was started on TPA after a negative CT Head. Query created by: La Thomas on 07/12/2018 7:17 AM Electronically signed by: Roxi Chinchilla MD 07/12/2018 2:59 PM
--- NOTE | 2018-07-12 18:08 | PQF ---
PROVIDER RESPONSE TEXT: Acute CVA REVIEWER QUERY TEXT: Symptom Underlying Cause Please document the underlying diagnosis causing the patient?s documented symptom(s) of Left sided we akness or whether those are insignificant or unable to be further specified. The patient's Clinical Indicators include: She comes with a 45 minutes of left chest pain and left upper and lower extremity weakness. she state d that she was cooking when the sudden unset of the sharp left chest pain radiating to the back started. This was associated with SOB. The left lower extremity became weak on her way to the ED and at the same time she began to feel sleepy. Initially in the ED on Sitting up she felt dizzy. Code Stroke was called in the ED . The NIHSS was 6, and the patient was started on TPA after a negative CT Head. Query created by: La Thomas on 07/12/2018 7:28 AM Electronically signed by: Roxi Chinchilla MD 07/12/2018 6:05 PM
== END 2018-07-12 16:44 | disposition home or self-care (01) | DRG 880 ==
LOC: H.ER 17:57 → H.ERHOLD 19:21 → H.ICU/CCU 20:50
PROVIDERS: ADMIT Internal Medicine; ATTEND Internal Medicine
PROC: 3E03317 Introduction of Other Thrombolytic into Peripheral Vein, Percutaneous Approach (ICD-10-PCS; principal; 2018-07-09)
PROC: 02HV33Z Insertion of Infusion Device into Superior Vena Cava, Percutaneous Approach (ICD-10-PCS; 2018-07-11)
PROC: B246ZZ4 Ultrasonography of Right and Left Heart, Transesophageal (ICD-10-PCS; 2018-07-11)
DX: I63.9 Cerebral infarction, unspecified (principal); R82.71 Bacteriuria; R29.706 NIHSS score 6; I69.354 Hemiplegia and hemiparesis following cerebral infarction affecting left non-dominant side; G43.909 Migraine, unspecified, not intractable, without status migrainosus; K29.70 Gastritis, unspecified, without bleeding; L30.9 Dermatitis, unspecified; E78.1 Pure hyperglyceridemia; R07.89 Other chest pain; Z88.0 Allergy status to penicillin; G89.29 Other chronic pain; E66.01 Morbid (severe) obesity due to excess calories; Z83.2 Family history of diseases of the blood and blood-forming organs and certain disorders involving the immune mechanism

== ENCOUNTER 2018-09-04 09:37 | Emergency (ER) | payer MEDICAID, OTHER ==
[2018-09-04 09:49] VITALS: BMI 48.4
[2018-09-04] MEDS ORDERED: Oxycodone/Acetaminophen 5/325 mg Tab PO STA (10:46)
[2018-09-04] MEDS ORDERED: Oxycodone/Acetaminophen 5/325 mg Tab ONE (11:15)
--- NOTE | 2018-09-04 11:43 | ED PDOC ---
Lower Extremity Pain/Injury Time Seen by Provider: 09/04/18 10:24 Chief Complaint (Nursing): Lower Extremity Problem/Injury Chief Complaint (Provider): Lateral foot pain History Per: Patient History/Exam Limitations: no limitations Onset/Duration Of Symptoms: Days (2) Current Symptoms Are (Timing): Still Present Additional Complaint(s): 23 yo female with history of stroke presents for evaluation of left foot pain. Pt states 2 days ago she was sitting with her foot on its side (lateral side on ground) and her sister fell on her foot. Pt states she thought it would get better. Pt states that she has been taking motrin but does not feel like it is helping. Past Medical History Reviewed: Historical Data, Nursing Documentation, Vital Signs Vital Signs: Last Vital Signs Temp 98.2 F 09/04/18 09:49 Pulse 85 09/04/18 09:49 Resp 20 09/04/18 09:49 BP 115/70 09/04/18 09:49 Pulse Ox 99 09/04/18 09:49 - Medical History PMH: Gastritis, Migraine, TIA, Chronic Pain (left foot) Denies: Chronic Kidney Disease - Surgical History Surgical History: Tonsillectomy (and adenoidectomy) - Family History Family History: States: Unknown Family Hx - Living Arrangements Living Arrangements: With Family - Social History Current smoker - smoking cessation education provided: No Alcohol: None Drugs: Denies - Home Medications Home Medications: Ambulatory Orders Medication Instructions Recorded Aspirin [Aspirin EC] 325 mg PO DAILY #30 ect 07/12/18 Atorvastatin [Lipitor] 10 mg PO DAILY #30 tab 07/12/18 oxyCODONE/Acetaminophen [Percocet 1 ea PO Q6H PRN #10 tab 09/04/18 5/325 mg Tab] - Allergies Allergies/Adverse Reactions: Allergies Allergy/AdvReac Type Severity Reaction Status Date / Time Penicillins Allergy RASH Verified 07/09/18 18:00 pineapple Allergy SWELLING Verified 07/09/18 18:00 Review of Systems ROS Statement: Except As Marked, All Systems Reviewed And Found Negative Constitutional: Negative for: Fever, Chills Musculoskeletal: Positive for: Foot Pain Skin: Negative for: Bruising, Other Physical Exam - Reviewed Nursing Documentation Reviewed: Yes Vital Signs Reviewed: Yes - Physical Exam Appears: Positive for: Well, No Acute Distress Head Exam: Positive for: ATRAUMATIC, NORMAL INSPECTION, NORMOCEPHALIC Skin: Positive for: Warm. Negative for: Normal Color (Ezcema on right dorsal foot) Eye Exam: Positive for: Normal appearance ENT: Positive for: Normal ENT Inspection Neck: Positive for: Normal Cardiovascular/Chest: Negative for: Bradycardia, Tachycardia Respiratory: Negative for: Accessory Muscle Use, Respiratory Distress Back: Positive for: Normal Inspection Extremity: Positive for: Normal ROM, Tenderness (Lateral right foot ) Neurologic/Psych: Positive for: Alert, Oriented - ECG O2 Sat by Pulse Oximetry: 99 Medical Decision Making Medical Decision Making: XR - Abnormality of the superior navicular, however this is not where patients pain/tenderness is located. Disposition - Clinical Impression Clinical Impression: Foot injury Counseled Patient/Family Regarding: Diagnosis, Need For Followup, Rx Given - Disposition Referrals: [facility] [Outside] [facility] [Outside] Disposition: Routine/Home Disposition Time: 11:46 Condition: GOOD Prescriptions: oxyCODONE/Acetaminophen [Percocet 5/325 mg Tab] 1 ea PO Q6H PRN #10 tab PRN Reason: Pain, Severe (8-10) Instructions: Crush Injury
--- NOTE | 2018-09-04 12:17 | RAD ---
Date of service: 09/04/2018 PROCEDURE: Left Foot Radiographs. HISTORY: Lateral foot Pain. No history of recent/ related trauma provided COMPARISON: 06/27/2018 FINDINGS: BONES: Normal. No fracture. JOINTS: Normal. SOFT TISSUES: Normal. OTHER FINDINGS: None. IMPRESSION: No acute findings related to/accounting for the clinical presentation. No significant interval change compared to the prior examination(s).
[2018-09-05 00:13] VITALS: BP 122/69; PULSE 84; RESP 18; TEMP 97.7; O2SAT 98
== END 2018-09-04 12:45 | disposition home or self-care (01) ==
LOC: H.ER 09:37
DX: S99.922A Unspecified injury of left foot, initial encounter (principal); Y92.89 Other specified places as the place of occurrence of the external cause

== ENCOUNTER 2018-10-25 07:38 | Emergency (ER) | payer MEDICAID ==
[2018-10-25 07:38] VITALS: BMI 48.4
[2018-10-25] MEDS ORDERED: Sodium Chloride 0.9% 1,000 ML IV STA (08:21)
--- NOTE | 2018-10-25 10:11 | ED PDOC ---
HPI: Abdomen Time Seen by Provider: 10/25/18 08:05 Chief Complaint (Nursing): Abdominal Pain Chief Complaint (Provider): abdominal pain History Per: Patient Current Symptoms Are (Timing): Still Present Location Of Pain/Discomfort: Epigastric. denies: RLQ, LLQ Quality Of Discomfort: Cramping, Burning Associated Symptoms: Nausea, Diarrhea, Loss Of Appetite. denies: Vomiting Exacerbating Factors: None Alleviating Factors: None Additional Complaint(s): 23yo female c/o upper abd pain x2-3 days, associated w nausea, loose stool and loss appetite. Denies fever, syncope, rash, chest pain or SOB. Prior charts reviewed several months ago admitted for possible CVA, hypercoagulable workup performed but shes unaware of results and due to see window tinter next month per father. Past Medical History Reviewed: Historical Data, Nursing Documentation, Vital Signs Vital Signs: Last Vital Signs Temp 98.3 F 10/25/18 07:47 Pulse 89 10/25/18 07:47 Resp 20 10/25/18 07:47 BP 129/61 10/25/18 07:47 Pulse Ox 98 10/25/18 07:47 - Medical History PMH: Gastritis, Migraine, TIA, Chronic Pain (left foot) Denies: Chronic Kidney Disease - Surgical History Surgical History: Tonsillectomy (and adenoidectomy) - Family History Family History: States: Unknown Family Hx - Living Arrangements Living Arrangements: With Family - Social History Current smoker - smoking cessation education provided: No - Home Medications Home Medications: Ambulatory Orders Medication Instructions Recorded Aspirin [Aspirin EC] 325 mg PO DAILY #30 ect 07/12/18 Atorvastatin [Lipitor] 10 mg PO DAILY #30 tab 07/12/18 oxyCODONE/Acetaminophen [Percocet 1 ea PO Q6H PRN #10 tab 09/04/18 5/325 mg Tab] Ondansetron ODT [Zofran ODT] 4 mg PO Q6 PRN #10 odt 10/25/18 - Allergies Allergies/Adverse Reactions: Allergies Allergy/AdvReac Type Severity Reaction Status Date / Time Penicillins Allergy RASH Verified 07/09/18 18:00 pineapple Allergy SWELLING Verified 07/09/18 18:00 Review of Systems Constitutional: Negative for: Fever ENT: Negative for: Ear Pain Cardiovascular: Negative for: Chest Pain, Palpitations Respiratory: Negative for: Cough, Shortness of Breath Gastrointestinal: Positive for: Nausea, Vomiting, Abdominal Pain, Diarrhea Genitourinary Female: Negative for: Dysuria, Frequency Musculoskeletal: Negative for: Neck Pain Skin: Negative for: Rash, Lesions, Jaundice Psych: Negative for: Anxiety, Suicidal ideation Physical Exam - Reviewed Nursing Documentation Reviewed: Yes Vital Signs Reviewed: Yes - Physical Exam Appears: Positive for: Well, Non-toxic, No Acute Distress Head Exam: Positive for: ATRAUMATIC, NORMAL INSPECTION, NORMOCEPHALIC Skin: Positive for: Normal Color, Warm, DRY Eye Exam: Positive for: EOMI, Normal appearance, PERRL ENT: Positive for: Normal ENT Inspection Neck: Positive for: Normal, Painless ROM Cardiovascular/Chest: Positive for: Regular Rate, Rhythm Respiratory: Positive for: CNT, Normal Breath Sounds Pulses-Radial (L): 3+/4+ Pulses-Radial (R): 3+/4+ Gastrointestinal/Abdominal: Positive for: Soft. Negative for: Tenderness, Guarding Back: Positive for: Normal Inspection Extremity: Positive for: Normal ROM Neurologic/Psych: Positive for: Alert, Oriented. Negative for: Motor/Sensory Deficits - Laboratory Results Result Diagrams: 10/25/18 11:03 10/25/18 11:03 - ECG ECG: Positive for: Interpreted By Me, Viewed By Me ECG Rhythm: Positive for: Normal ST Segment, Sinus Rhythm. Negative for: ST/T Changes Rate: 89 O2 Sat by Pulse Oximetry: 98 Pulse Ox Interpretation: Normal Medical Decision Making Medical Decision Makin Abdomen US FINDINGS: LIVER: Measures 21.4 cm. Hepatopedal blood flow. Fatty infiltration manifest ultr asonographically as increased echogenicity of the liver parenchyma. No mass. No intrahepatic bile duct dilatation. GALLBLADDER: Posterior echogenic foci. These are nonmobile and do not layer. Differential considerations are not nonmobile adherent gallstones or perhaps small polyps. COMMON BILE DUCT: Measures 3.9 mm. No stones. No dilatation. PANCREAS: Unremarkable as visualized. No mass. No ductal dilatation. RIGHT KIDNEY: Measures 4.1 x 10.2cm. Normal echogenicity. No calculus, mass, or hydr onephrosis. LEFT KIDNEY: Measures 5.7 x 12.0cm. Normal echogenicity. No calculus, mass, or hydronep hrosis. SPLEEN: Normal in size and contour. No mass. AORTA: No aneurysmal dilatation. IVC: Unremarkable. OTHER FINDINGS: None. IMPRESSION: Hepatomegaly, hepatic steatosis similar finding identified previously. Adherent stones/polyps again identified in the gallbladder. No acute findings. Disposition - Clinical Impression Clinical Impression: Gallstones - Disposition Referrals: Jhonathan Rae MD [Staff Provider] - Bakari Oviedo MD, PhD [Staff Provider] - Condition: STABLE Additional Instructions: Followup with hematology and GI doctor as directed. You may need further medications or treatment. Return to ER for any worse or new symptoms. Use Zofran ODT for nausea. Recommend bland, nonfat diet. Prescriptions: Ondansetron ODT [Zofran ODT] 4 mg PO Q6 PRN #10 odt PRN Reason: Nausea/Vomiting Instructions: Acute Abdomen (Belly Pain), Adult (DC), Gallstones (DC) Forms: [facility] (Spanish)
[2018-10-25 11:16] LABS: BASO % 0.3 % (0.0-2.0); EOS # 0.2 K/uL (0.0-0.7); HEMOGLOBIN 12.6 g/dL (12.0-16.0); LYMPH # 1.6 K/uL (1.0-4.3); LYMPH % 20.8 % (20.0-40.0); MEAN CELL VOLUME 84.2 fl (81.0-99.0); MEAN CORPUSCULAR HEMOGLOBIN 26.4 pg (27.0-31.0); MEAN CORPUSCULAR HGB CONC 31.3 g/dL (33.0-37.0); MEAN PLATELET VOLUME 9.1 fl (7.2-11.7); MONO # 0.5 K/uL (0.0-0.8); MONO % 6.6 % (0.0-10.0); NEUT # 5.4 K/uL (1.8-7.0); NEUT % 70.3 % (50.0-75.0); NRBC % 0.2 % (0.0-0.0); RBC 4.76 Mil/uL (3.80-5.20); RED CELL DISTRIBUTION WIDTH 13.6 % (11.5-14.5); WHITE BLOOD COUNT 7.7 K/uL (4.8-10.8)
--- NOTE | 2018-10-25 11:25 | US ---
Date of service: 10/25/2018 HISTORY: Upper abdominal pain, vomiting and diarrhea. COMPARISON: 02/14/2018 TECHNIQUE: Sonographic evaluation of the abdomen. FINDINGS: LIVER: Measures 21.4 cm. Hepatopedal blood flow. Fatty infiltration manifest ultrasonographically as increased echogenicity of the liver parenchyma. No mass. No intrahepatic bile duct dilatation. GALLBLADDER: Posterior echogenic foci. These are nonmobile and do not layer. Differential considerations are not nonmobile adherent gallstones or perhaps small polyps. COMMON BILE DUCT: Measures 3.9 mm. No stones. No dilatation. PANCREAS: Unremarkable as visualized. No mass. No ductal dilatation. RIGHT KIDNEY: Measures 4.1 x 10.2cm. Normal echogenicity. No calculus, mass, or hydronephrosis. LEFT KIDNEY: Measures 5.7 x 12.0cm. Normal echogenicity. No calculus, mass, or hydronephrosis. SPLEEN: Normal in size and contour. No mass. AORTA: No aneurysmal dilatation. IVC: Unremarkable. OTHER FINDINGS: None. IMPRESSION: Hepatomegaly, hepatic steatosis similar finding identified previously. Adherent stones/polyps again identified in the gallbladder. No acute findings.
[2018-10-25 11:28] LABS: ALB/GLOB RATIO 1.2 (1.0-2.1); ALBUMIN 4.1 g/dL (3.5-5.0); ALT/SGPT 41 U/L (9-52); AST/SGOT 36 U/L (14-36); BLOOD UREA NITROGEN 8 mg/dl (7-17); CALCIUM 9.4 mg/dL (8.4-10.2); GFR NON-AFRICAN AMERICAN > 60; LIPASE 55 U/L (23-300)
[2018-10-25 13:30] VITALS: RESP 18
[2018-10-25 19:24] VITALS: BP 122/70; PULSE 78; TEMP 98; O2SAT 99
== END 2018-10-25 14:08 | disposition home or self-care (01) ==
LOC: H.ER 07:38
DX: K80.20 Calculus of gallbladder without cholecystitis without obstruction (principal); Z86.73 Personal history of transient ischemic attack (TIA), and cerebral infarction without residual deficits; Z88.0 Allergy status to penicillin

== ENCOUNTER 2019-01-11 11:32 | Emergency (ER) | payer OTHER ==
[2019-01-11 11:32] VITALS: BMI 48.4
--- NOTE | 2019-01-11 13:30 | ED PDOC ---
HPI: Abdomen Time Seen by Provider: 01/11/19 13:06 Chief Complaint (Nursing): Abdominal Pain Chief Complaint (Provider): Abdominal pain History Per: Patient History/Exam Limitations: no limitations Outside of [place] travel?: No Current Symptoms Are (Timing): Still Present Location Of Pain/Discomfort: Diffuse Quality Of Discomfort: "Pain" Associated Symptoms: Vomiting, Diarrhea. denies: Fever, Chills Additional History Per: Patient Additional Complaint(s): 23yo female, with history of TIA, high cholesterol, comes to ER reporting bodyaches, abdominal pain, since this morning. She reports associated vomiting, diarrhea and states she has been unable to tolerate any PO intake. She denies any associated fever, chills, chest pain or shortness of breath. No medications taken for symptoms. PMD: [facility] Past Medical History Reviewed: Historical Data, Nursing Documentation, Vital Signs Vital Signs: Last Vital Signs Temp 99.7 F H 01/11/19 12:42 Pulse 100 H 01/11/19 12:42 Resp 16 01/11/19 12:42 BP 104/67 01/11/19 12:42 Pulse Ox 99 01/11/19 12:42 - Medical History PMH: Gastritis, Migraine, TIA, Chronic Pain (left foot) Denies: Chronic Kidney Disease - Surgical History Surgical History: Tonsillectomy (and adenoidectomy) Other surgeries: knee surg - Family History Family History: States: Unknown Family Hx - Home Medications Home Medications: Ambulatory Orders Medication Instructions Recorded Aspirin [Aspirin EC] 325 mg PO DAILY #30 ect 07/12/18 Atorvastatin [Lipitor] 10 mg PO DAILY #30 tab 07/12/18 oxyCODONE/Acetaminophen [Percocet 1 ea PO Q6H PRN #10 tab 09/04/18 5/325 mg Tab] Ondansetron ODT [Zofran ODT] 4 mg PO Q6 PRN #10 odt 10/25/18 - Allergies Allergies/Adverse Reactions: Allergies Allergy/AdvReac Type Severity Reaction Status Date / Time Penicillins Allergy RASH Verified 01/11/19 12:42 pineapple Allergy SWELLING Verified 01/11/19 12:42 Review of Systems ROS Statement: Except As Marked, All Systems Reviewed And Found Negative Constitutional: Positive for: Malaise. Negative for: Fever, Chills Cardiovascular: Negative for: Chest Pain Respiratory: Negative for: Shortness of Breath Gastrointestinal: Positive for: Vomiting, Abdominal Pain, Diarrhea Physical Exam - Reviewed Nursing Documentation Reviewed: Yes Vital Signs Reviewed: Yes - Physical Exam Appears: Positive for: Non-toxic Head Exam: Positive for: NORMAL INSPECTION Skin: Positive for: Normal Color Eye Exam: Positive for: Normal appearance Neck: Positive for: Supple Cardiovascular/Chest: Positive for: Regular Rate, Rhythm Respiratory: Positive for: Normal Breath Sounds. Negative for: Respiratory Distress Gastrointestinal/Abdominal: Positive for: Soft, Tenderness (diffuse). Negative for: Mass, Guarding Back: Positive for: Normal Inspection Extremity: Positive for: Normal ROM Neurological/Psych: Positive for: Awake, Alert. Negative for: Motor/Sensory Deficits - Laboratory Results Result Diagrams: 01/11/19 14:39 01/11/19 14:39 - ECG O2 Sat by Pulse Oximetry: 99 (RA) Pulse Ox Interpretation: Normal Medical Decision Making Medical Decision Makinyo with abdominal pain, bodyaches x 1 day Plan: -- Labs -- Rapid flu -- IV Fluids -- Bentyl 20mg IV -- Zofran 4mg IV -- CT Abdomen/pelvis w/ PO & IV contrast 1500 Rapid flu negative Patient signed out to Dr. Danielson pending CT, reassessment ---- ScribeAttestation: Documented byPaula Green, acting as a scribe for Neha Starks MD. Provider ScribeAttestation: All medical record entries made by the Scribe were at my direction and personally dictated by me. I have reviewed the chart and agree that the record accurately reflects my personal performance of the history, physical exam, medical decision making, and the department course for this patient. I have also personally directed, reviewed, and agree with the discharge instructions and disposition. Disposition - Patient ED Disposition Is Patient to be Admitted: Transfer of Care - Disposition Disposition: Transfer of Care Disposition Time: 15:00 Condition: STABLE Forms: [facility] ([place]) Patient Signed Over To: Darling Danielson
[2019-01-11] MEDS ORDERED: Sodium Chloride 0.9% 1,000 ML IV STA (13:34)
[2019-01-11 14:58] LABS: BASO % 0.1 % (0.0-2.0); EOS % 0.4 % (0.0-4.0); HEMOGLOBIN 13.1 g/dL (12.0-16.0); LYMPH # 0.7 K/uL (1.0-4.3); LYMPH % 8.5 % (20.0-40.0); MEAN CELL VOLUME 82.1 fl (81.0-99.0); MEAN CORPUSCULAR HEMOGLOBIN 26.6 pg (27.0-31.0); MEAN CORPUSCULAR HGB CONC 32.3 g/dL (33.0-37.0); MEAN PLATELET VOLUME 9.3 fl (7.2-11.7); MONO # 0.4 K/uL (0.0-0.8); MONO % 4.5 % (0.0-10.0); NEUT # 7.3 K/uL (1.8-7.0); NEUT % 86.5 % (50.0-75.0); NRBC % 0.1 % (0.0-0.0); PLATELET COUNT 235 K/uL (130-400); RBC 4.94 Mil/uL (3.80-5.20); RED CELL DISTRIBUTION WIDTH 13.9 % (11.5-14.5); WHITE BLOOD COUNT 8.4 K/uL (4.8-10.8)
[2019-01-11 15:03] LABS: ALB/GLOB RATIO 1.3 (1.0-2.1); ALBUMIN 4.6 g/dL (3.5-5.0); ALT/SGPT 42 U/L (9-52); AST/SGOT 37 U/L (14-36); BLOOD UREA NITROGEN 13 mg/dl (7-17); CALCIUM 9.7 mg/dL (8.4-10.2); GFR NON-AFRICAN AMERICAN > 60; LIPASE 78 U/L (23-300)
--- NOTE | 2019-01-11 15:13 | ED PDOC ---
- Laboratory Results Result Diagrams: 01/11/19 14:39 01/11/19 14:39 Lab Results: Total Bilirubin 0.8 mg/dl (0.2-1.3) 01/11/19 14:39 AST 37 U/L (14-36) H 01/11/19 14:39 ALT 42 U/L (9-52) 01/11/19 14:39 Alkaline Phosphatase 83 U/L (38-126) 01/11/19 14:39 Total Protein 8.3 G/DL (6.3-8.2) H 01/11/19 14:39 Albumin 4.6 g/dL (3.5-5.0) 01/11/19 14:39 Globulin 3.6 gm/dL (2.2-3.9) 01/11/19 14:39 Albumin/Globulin Ratio 1.3 (1.0-2.1) 01/11/19 14:39 Lipase 78 U/L (23-300) 01/11/19 14:39 - ECG O2 Sat by Pulse Oximetry: 99 (RA) Pulse Ox Interpretation: Normal Medical Decision Making Medical Decision Makin Patient signed out to me by Dr. Starks pending ER workup, reassessment, and disposition Labs with no emergently significant abnormalities. Accession No. : [id number] Patient Name / ID : MIRIAN BAPTISTE / [id number] Exam Date : 01/11/2019 16:31:12 ( Approved ) Study Comment : Sex / Age : F / 23Y Creator : Michele Murray MD Dictator : Michele Murray MD Senior Cost Analyst : Pier Master Assistant : Michele Murray MD Approver2 : Report Date : 01/11/2019 17:10:55 My Comment : Date of service: 01/11/2019 PROCEDURE: CT Abdomen and Pelvis with contrast HISTORY: Gen abd pain, v/d COMPARISON: Abdomen pelvis CT with contrast 08/30/2017. TECHNIQUE: Following the intravenous administration of iodinated contrast material, a CT examination of the abdomen and pelvis was performed from the domes of the diaphragms to the symphysis pubis with reformatted datasets provided in axial, sagittal and coronal planes. Oral contrast was not administered as per referring physician request. Contrast dose: Omnipaque 300, 100 cc Radiation dose: Total exam DLP = 931.48 mGy-cm. This CT exam was performed using one or more of the following dose reduction techniques: Automated exposure control, adjustment of the mA and/or kV according to patient size, and/or use of iterative reconstruction technique. FINDINGS: LOWER THORAX: Trace linear atelectasis is seen at the inferior left lung zone versus fibrosis. No pleural or pericardial effusion. LIVER: There is marked diminished attenuation throughout the liver once again compatible with chronic or recurrent diffuse hepatic steatosis. No gross intrahepatic biliary dilatation or definitive mass identified once again. GALLBLADDER AND BILE DUCTS: Unremarkable. PANCREAS: Unremarkable. No gross lesion or ductal dilatation. SPLEEN: Unremarkable. ADRENALS: Unremarkable. No mass. KIDNEYS AND URETERS: Unremarkable. No hydronephrosis. No solid mass. VASCULATURE: Unremarkable. No aortic aneurysm. No aortic atherosclerotic calcification or mural plaque present. BOWEL: Stomach is only mildly distended with retained gas and fluid. There is no bowel obstruction appreciable. No pericolic or Funmilayo intestinal reactive changes are appreciated in the mesentery to suggest segmental colitis or enteritis. There are a few medial pericecal lymph nodes identified which are tiny in size with central mesenteric shotty lymph nodes also present, potentially reflecting mesenteric adenitis. There is a [id number] amount retained fecal material identified at the ascending colon with remaining large bowel otherwise containing minimal residual retained fecal material. APPENDIX: No CT pattern to suggest appendicitis at this time. PERITONEUM: Unremarkable. No free fluid. No free air. LYMPH NODES: Unremarkable. No enlarged lymph nodes. BLADDER: Unremarkable. REPRODUCTIVE: Unremarkable. BONES: No acute fracture. OTHER FINDINGS: None. IMPRESSION: 1. Stable pattern of potential limited mesenteric adenitis. 2. No acute abdominal or pelvic findings. 3. Chronic or recurrent hepatic steatosis, prominent. DW pt findings. She clinically reports feeling a little better. Fever initially improved and then recurred. Ibuprofen given. Pt stable for discharge. ScribeAttestation: Documented byaPula Green, acting as a scribe for Darling Danielson MD. Provider ScribeAttestation: All medical record entries made by the Scribe were at my direction and personally dictated by me. I have reviewed the chart and agree that the record accurately reflects my personal performance of the history, physical exam, medical decision making, and the department course for this patient. I have also personally directed, reviewed, and agree with the discharge instructions and disposition. Disposition Counseled Patient/Family Regarding: Studies Performed, Diagnosis, Need For Followup, Rx Given - Clinical Impression Clinical Impression: Gastroenteritis, Mesenteric adenitis - POA Present On Arrival: None - Disposition Referrals: [facility] [Outside] - 01/15/19 Disposition: Routine/Home Disposition Time: 18:40 Condition: STABLE Additional Instructions: REST AND DRINK PLENTY OF HYDRATING FLUIDS FOLLOWUP WITH CLINIC ON TUESDAY RETURN IF YOU FEEL WORSE OLIVA VELA, thank you for letting us take care of you today. Your provider was Darling Danielson MD and you were treated for vomiting, diarrhea and abdominal pain. The emergency medical care you received today was directed at your acute symptoms. If you were prescribed any medication, please fill it and take as directed. It may take several days for your symptoms to resolve. Re turn to the Emergency Department if your symptoms worsen, do not improve, or if you have any other problems. Please contact your doctor or call one of the physicians/clinics you have been referred to that are listed on the Patient Visit Information form that is included in your discharge packet. Bring any paperwork you were given at discharge with you along with any medications you are taking to your follow up visit. Our treatment cannot replace ongoing medical care by a primary care provider outside of the emergency department. Thank you for allowing the [facility] team to be part of your care today. Prescriptions: Esomeprazole Magnesium [Nexium] 20 mg PO DAILY #30 capsule. Ondansetron ODT [Zofran ODT] 1 odt PO Q6 PRN #20 odt PRN Reason: Nausea/Vomiting Saccharomyces Boulardi [Florastor] 500 mg PO BID #28 cap Instructions: Mesenteric Lymphadenitis (DC), Gastroenteritis (ED) Forms: [facility] ED School/Work Excuse
[2019-01-11] MEDS ORDERED: Sodium Chloride 0.9% 50 ML IV ONE (16:23)
[2019-01-11] MEDS ORDERED: Iohexol 300 100 ML IJ ONE (16:23)
[2019-01-11 16:58] LABS: BANDS 2 % (0-2); LYMPHOCYTE 9 % (20-50); MONOCYTE 5 % (0-10); NEUTROPHIL 84 % (42-75); TOTAL CELLS COUNTED 100
[2019-01-11 16:59] LABS: HYPOCHROMIC SLIGHT; MICROCYTOSIS SLIGHT; PLATELET ESTIMATE NORMAL (NORMAL)
--- NOTE | 2019-01-11 17:14 | CT ---
Date of service: 01/11/2019 PROCEDURE: CT Abdomen and Pelvis with contrast HISTORY: Gen abd pain, v/d COMPARISON: Abdomen pelvis CT with contrast 08/30/2017. TECHNIQUE: Following the intravenous administration of iodinated contrast material, a CT examination of the abdomen and pelvis was performed from the domes of the diaphragms to the symphysis pubis with reformatted datasets provided in axial, sagittal and coronal planes. Oral contrast was not administered as per referring physician request. Contrast dose: Omnipaque 300, 100 cc Radiation dose: Total exam DLP = 931.48 mGy-cm. This CT exam was performed using one or more of the following dose reduction techniques: Automated exposure control, adjustment of the mA and/or kV according to patient size, and/or use of iterative reconstruction technique. FINDINGS: LOWER THORAX: Trace linear atelectasis is seen at the inferior left lung zone versus fibrosis. No pleural or pericardial effusion. LIVER: There is marked diminished attenuation throughout the liver once again compatible with chronic or recurrent diffuse hepatic steatosis. No gross intrahepatic biliary dilatation or definitive mass identified once again. GALLBLADDER AND BILE DUCTS: Unremarkable. PANCREAS: Unremarkable. No gross lesion or ductal dilatation. SPLEEN: Unremarkable. ADRENALS: Unremarkable. No mass. KIDNEYS AND URETERS: Unremarkable. No hydronephrosis. No solid mass. VASCULATURE: Unremarkable. No aortic aneurysm. No aortic atherosclerotic calcification or mural plaque present. BOWEL: Stomach is only mildly distended with retained gas and fluid. There is no bowel obstruction appreciable. No pericolic or Funmilayo intestinal reactive changes are appreciated in the mesentery to suggest segmental colitis or enteritis. There are a few medial pericecal lymph nodes identified which are tiny in size with central mesenteric shotty lymph nodes also present, potentially reflecting mesenteric adenitis. There is a [id number] amount retained fecal material identified at the ascending colon with remaining large bowel otherwise containing minimal residual retained fecal material. APPENDIX: No CT pattern to suggest appendicitis at this time. PERITONEUM: Unremarkable. No free fluid. No free air. LYMPH NODES: Unremarkable. No enlarged lymph nodes. BLADDER: Unremarkable. REPRODUCTIVE: Unremarkable. BONES: No acute fracture. OTHER FINDINGS: None. IMPRESSION: 1. Stable pattern of potential limited mesenteric adenitis. 2. No acute abdominal or pelvic findings. 3. Chronic or recurrent hepatic steatosis, prominent.
[2019-01-11 18:03] VITALS: RESP 18
[2019-01-11 19:28] VITALS: BP 114/74; PULSE 112; TEMP 99.6; O2SAT 98
== END 2019-01-11 19:27 | disposition home or self-care (01) ==
LOC: H.ER 11:32
DX: K52.9 Noninfective gastroenteritis and colitis, unspecified (principal); I88.0 Nonspecific mesenteric lymphadenitis; G89.29 Other chronic pain; K76.0 Fatty (change of) liver, not elsewhere classified; Z86.73 Personal history of transient ischemic attack (TIA), and cerebral infarction without residual deficits; Z88.0 Allergy status to penicillin
CPT/HCPCS: 74177; 80053; 83690; 84702; 85025; 87804; 96374; 99284; J2405; J7030; Q9967

== ENCOUNTER 2019-01-17 07:50 | Emergency (ER) | payer OTHER ==
[2019-01-17 07:50] VITALS: BMI 48.4
[2019-01-17] MEDS ORDERED: Morphine 4 MG/ML VIAL IV ONE (09:48)
[2019-01-17] MEDS ORDERED: Sodium Chloride 0.9% 1,000 ML IV STA (09:48)
[2019-01-17] MEDS ORDERED: Morphine 4 MG/ML VIAL ONE (09:58)
--- NOTE | 2019-01-17 10:04 | ED PDOC ---
HPI: Abdomen Time Seen by Provider: 01/17/19 08:51 Chief Complaint (Nursing): Abdominal Pain Chief Complaint (Provider): Abdominal Pain History Per: Patient History/Exam Limitations: no limitations Onset/Duration Of Symptoms: Days Current Symptoms Are (Timing): Still Present Associated Symptoms: Nausea, Vomiting. denies: Fever, Diarrhea Additional Complaint(s): 23 year old female with a past medical history of a stroke who is presenting to the ED for evaluation of abdominal pain ongoing for 5 days. Patient states that she was in the ED 5 days ago where they did a CT and discharged her home with the instructions to return if symptoms worsen. She reports that pain is persistent and admits that she vomits anytime she has solid food. Patient denies any diarrhea or fevers. PMD: Clinic Past Medical History Reviewed: Historical Data, Nursing Documentation, Vital Signs Vital Signs: Last Vital Signs Temp 98.5 F 01/17/19 08:05 Pulse 82 01/17/19 08:05 Resp 16 01/17/19 08:05 BP 118/78 01/17/19 08:05 Pulse Ox 97 01/17/19 08:05 - Medical History PMH: Gastritis, Migraine, TIA, Chronic Pain (left foot) Denies: Chronic Kidney Disease - Surgical History Surgical History: Tonsillectomy (and adenoidectomy) Other surgeries: Knee Surgery - Family History Family History: States: Unknown Family Hx - Social History Ex-Smoker (has not smoked in the last 12 months): No Alcohol: None Drugs: Denies - Home Medications Home Medications: Ambulatory Orders Medication Instructions Recorded Aspirin [Aspirin EC] 325 mg PO DAILY #30 ect 07/12/18 Atorvastatin [Lipitor] 10 mg PO DAILY #30 tab 07/12/18 oxyCODONE/Acetaminophen [Percocet 1 ea PO Q6H PRN #10 tab 09/04/18 5/325 mg Tab] Ondansetron ODT [Zofran ODT] 4 mg PO Q6 PRN #10 odt 10/25/18 Esomeprazole Magnesium [Nexium] 20 mg PO DAILY #30 capsule. 01/11/19 Ondansetron ODT [Zofran ODT] 1 odt PO Q6 PRN #20 odt 01/11/19 Saccharomyces Boulardi [Florastor] 500 mg PO BID #28 cap 01/11/19 Azithromycin [Zithromax] 250 mg PO DAILY #6 tab 01/17/19 Famotidine [Pepcid] 20 mg PO BID PRN #10 tab 01/17/19 - Allergies Allergies/Adverse Reactions: Allergies Allergy/AdvReac Type Severity Reaction Status Date / Time Penicillins Allergy RASH Verified 01/11/19 12:42 pineapple Allergy SWELLING Verified 01/11/19 12:42 Review of Systems ROS Statement: Except As Marked, All Systems Reviewed And Found Negative Constitutional: Negative for: Fever Gastrointestinal: Positive for: Nausea, Vomiting, Abdominal Pain. Negative for: Diarrhea Physical Exam - Reviewed Nursing Documentation Reviewed: Yes Vital Signs Reviewed: Yes - Physical Exam Appears: Positive for: Non-toxic, No Acute Distress (obese ) Head Exam: Positive for: ATRAUMATIC Skin: Positive for: Normal Color, Warm, DRY Eye Exam: Positive for: EOMI, Normal appearance, PERRL ENT: Positive for: Normal ENT Inspection Neck: Positive for: Normal, Painless ROM Cardiovascular/Chest: Positive for: Regular Rate, Rhythm. Negative for: Murmur Respiratory: Positive for: Normal Breath Sounds. Negative for: Respiratory Distress Gastrointestinal/Abdominal: Positive for: Soft, Tenderness (mild epigastric and suprapubic tenderness ). Negative for: Distended, Guarding, Rebound Back: Positive for: Normal Inspection. Negative for: L CVA Tenderness, R CVA Tenderness, Vertebral Tenderness Extremity: Positive for: Normal ROM. Negative for: Deformity, Swelling Neurological/Psych: Positive for: Awake, Alert, Normal Tone, Oriented. Negative for: Motor/Sensory Deficits - Laboratory Results Result Diagrams: 01/17/19 10:08 01/17/19 10:08 - ECG O2 Sat by Pulse Oximetry: 97 (RA) Pulse Ox Interpretation: Normal Medical Decision Making Medical Decision Making: Time: 9:50 Plan: --CMP --Lipase --CBC --Morphine 4 mg IV --IV Fluids --Zofran [address] from last visit: FINDINGS: LOWER THORAX: Trace linear atelectasis is seen at the inferior left lung zone versus fibrosis. No pleural or pericardial effusion. LIVER: There is marked diminished attenuation throughout the liver once again compatible with chronic or recurrent diffuse hepatic steatosis. No gross intrahepatic biliary dilatation or definitive mass identified once again. GALLBLADDER AND BILE DUCTS: Unremarkable. PANCREAS: Unremarkable. No gross lesion or ductal dilatation. SPLEEN: Unremarkable. ADRENALS: Unremarkable. No mass. KIDNEYS AND URETERS: Unremarkable. No hydronephrosis. No solid mass. VASCULATURE: Unremarkable. No aortic aneurysm. No aortic atherosclerotic calcification or mural plaque present. BOWEL: Stomach is only mildly distended with retained gas and fluid. There is no bowel obstruction appreciable. No pericolic or Funmilayo intestinal reactive changes are appreciated in the mesentery to suggest segmental colitis or enteritis. There are a few medial pericecal lymph nodes identified which are tiny in size with central mesenteric shotty lymph nodes also present, potentially reflecting mesenteric adenitis. There is a [id number] amount retained fecal material identified at the ascending colon with remaining large bowel otherwise containing minimal residual retained fecal material. APPENDIX: No CT pattern to suggest appendicitis at this time. PERITONEUM: Unremarkable. No free fluid. No free air. LYMPH NODES: Unremarkable. No enlarged lymph nodes. BLADDER: Unremarkable. REPRODUCTIVE: Unremarkable. BONES: No acute fracture. OTHER FINDINGS: None. IMPRESSION: 1. Stable pattern of potential limited mesenteric adenitis. 2. No acute abdominal or pelvic findings. 3. Chronic or recurrent hepatic steatosis, prominent. 15:22 Patient is aware of elevated LFTs. Diagnosis: Left Otitis Media. ------- Scribe Attestation: Documented by Darlyn Caputo, acting as a scribe for Kayla Carlson MD. Provider Scribe Attestation: All medical record entries made by the Scribe were at my direction and personally dictated by me. I have reviewed the chart and agree that the record accurately reflects my personal performance of the history, physical exam, medical decision making, and the department course for this patient. I have also personally directed, reviewed, and agree with the discharge instructions and disposition. Disposition - Clinical Impression Clinical Impression: Abdominal discomfort, Otitis media, Elevated liver function tests - Disposition Condition: IMPROVED Additional Instructions: follow up with the clinic in 1-2 days return to the ED with any worsening or concerning symptoms Prescriptions: Azithromycin [Zithromax] 250 mg PO DAILY #6 tab Famotidine [Pepcid] 20 mg PO BID PRN #10 tab PRN Reason: Heartburn Instructions: Stomach Ache and Stomach Upset Forms: [facility] ([place])
[2019-01-17 10:21] LABS: BASO # 0.1 K/uL (0.0-0.2); BASO % 0.8 % (0.0-2.0); EOS # 0.1 K/uL (0.0-0.7); EOS % 1.9 % (0.0-4.0); HEMOGLOBIN 12.5 g/dL (12.0-16.0); LYMPH # 1.8 K/uL (1.0-4.3); LYMPH % 25.7 % (20.0-40.0); MEAN CELL VOLUME 82.3 fl (81.0-99.0); MEAN CORPUSCULAR HEMOGLOBIN 26.6 pg (27.0-31.0); MEAN CORPUSCULAR HGB CONC 32.3 g/dL (33.0-37.0); MEAN PLATELET VOLUME 9.2 fl (7.2-11.7); MONO # 0.6 K/uL (0.0-0.8); MONO % 8.2 % (0.0-10.0); NEUT # 4.6 K/uL (1.8-7.0); NEUT % 63.4 % (50.0-75.0); NRBC % 0.1 % (0.0-0.0); RBC 4.72 Mil/uL (3.80-5.20); RED CELL DISTRIBUTION WIDTH 12.9 % (11.5-14.5); WHITE BLOOD COUNT 7.2 K/uL (4.8-10.8)
[2019-01-17 10:36] LABS: BLOOD UREA NITROGEN 10 mg/dl (7-17); CALCIUM 9.4 mg/dL (8.4-10.2); GFR NON-AFRICAN AMERICAN > 60
[2019-01-17 10:37] LABS: ALB/GLOB RATIO 1.2 (1.0-2.1); ALT/SGPT 63 U/L (9-52); AST/SGOT 41 U/L (14-36); LIPASE 113 U/L (23-300)
[2019-01-17 11:26] VITALS: RESP 18
[2019-01-17 15:23] VITALS: O2SAT 97
[2019-01-17 16:13] VITALS: BP 123/78; PULSE 77; TEMP 98.2
== END 2019-01-17 16:14 | disposition home or self-care (01) ==
LOC: H.ER 07:50
DX: R10.9 Unspecified abdominal pain (principal); H66.92 Otitis media, unspecified, left ear; R94.5 Abnormal results of liver function studies; G89.29 Other chronic pain; Z86.73 Personal history of transient ischemic attack (TIA), and cerebral infarction without residual deficits; Z88.0 Allergy status to penicillin
CPT/HCPCS: 80053; 81025; 83690; 85025; 96374; 96375; 99285; J2270; J2405; J7030

== ENCOUNTER 2019-01-23 18:36 | Emergency (ER) | payer OTHER ==
[2019-01-23 18:37] VITALS: BMI 48.4
[2019-01-23 20:04] VITALS: BP 124/83; PULSE 87; RESP 18; TEMP 98.5; O2SAT 97
--- NOTE | 2019-01-23 21:00 | ED PDOC ---
HPI: General Adult Time Seen by Provider: 01/23/19 20:36 Chief Complaint (Nursing): ENT Problem History Per: Patient History/Exam Limitations: no limitations Onset/Duration Of Symptoms: Days Current Symptoms Are (Timing): Still Present Additional Complaint(s): 23 yo F with history of stroke and high cholesterol presents with 2 complaints. One is left ear pain and decrease hearing for 1 week. Pt was seen 5 days ago and given zithromax with no improvement. She reports she could hear before but now it is clogged and more painful. She has been taking Motrin with mild relief. Pt denies nasal congestion, cough, drainage from ear. Second complaint is a itchy dry rash to bilateral arms for over 1 week now. pt reports she thinks she has history of eczema and has been putting lotion on with mild relief. She denies new medications, soaps, detergents, perfumes, etc. Denies lip or tongue swelling, difficulty breathing, throat pain. PMD: [facility] LMP: 01/05 Past Medical History Reviewed: Historical Data, Nursing Documentation, Vital Signs Vital Signs: Last Vital Signs Temp 98.5 F 01/23/19 20:03 Pulse 87 01/23/19 20:03 Resp 18 01/23/19 20:03 BP 124/83 01/23/19 20:03 Pulse Ox 97 01/23/19 20:03 - Medical History PMH: CVA, Gastritis, Hypercholesterolemia, Migraine, TIA, Chronic Pain (left foot) Denies: Chronic Kidney Disease - Surgical History Surgical History: Tonsillectomy (and adenoidectomy) - Family History Family History: States: Unknown Family Hx - Home Medications Home Medications: Ambulatory Orders Medication Instructions Recorded Aspirin [Aspirin EC] 325 mg PO DAILY #30 ect 07/12/18 Atorvastatin [Lipitor] 10 mg PO DAILY #30 tab 07/12/18 oxyCODONE/Acetaminophen [Percocet 1 ea PO Q6H PRN #10 tab 09/04/18 5/325 mg Tab] Ondansetron ODT [Zofran ODT] 4 mg PO Q6 PRN #10 odt 10/25/18 Esomeprazole Magnesium [Nexium] 20 mg PO DAILY #30 capsule. 01/11/19 Ondansetron ODT [Zofran ODT] 1 odt PO Q6 PRN #20 odt 01/11/19 Saccharomyces Boulardi [Florastor] 500 mg PO BID #28 cap 01/11/19 Azithromycin [Zithromax] 250 mg PO DAILY #6 tab 01/17/19 Famotidine [Pepcid] 20 mg PO BID PRN #10 tab 01/17/19 Ciprofloxacin/Hydrocortisone 10 ml OT BID #3 drops.susp 01/23/19 [Cipro Hc Otic Suspension] Methylprednisolone [Medrol Dose 4 mg PO DAILY #21 mg 01/23/19 Pack (21 tabs)] - Allergies Allergies/Adverse Reactions: Allergies Allergy/AdvReac Type Severity Reaction Status Date / Time Penicillins Allergy RASH Verified 01/11/19 12:42 pineapple Allergy SWELLING Verified 01/11/19 12:42 Review of Systems Constitutional: Negative for: Fever ENT: Positive for: Ear Pain. Negative for: Ear Discharge Skin: Positive for: Rash Physical Exam - Reviewed Nursing Documentation Reviewed: Yes - Physical Exam Comments: GENERAL APPEARANCE: Patient is awake, alert, oriented x 3, in no acute distress, obese SKIN: Warm, dry; (-) cyanosis. (+) dry erythematous rash to bilateral forearms with excoriations consistent with eczema, spares palms and soles, no vesicles or signs of infection EYES: (+) EOMI ENMT: Canals : (-) cerumen impaction, Left canal (+)moderate edema, no drainage or erythema TMs: (-) TM bulging and (-) erythema, (-)effusion, (-) perforation,(-) vesicles, other ear normal. Frontal / maxillary sinuses : (-) tenderness. (-) TMJ tenderness. Pharynx: Clear; (-) erythema, (-) exudate. Airway patent: (-) stridor. NECK: (-) stiffness, (-) tenderness, (-) lymphadenopathy. LUNGS: clear, (-) wheezing, (-) rhonchi. CARDIAC: RRR, (-) murmurs, (-) gallops. NEURO: cranial nerves 2-12 grossly intact, normal steady gait, motor and sensation intact - ECG O2 Sat by Pulse Oximetry: 97 Medical Decision Making Medical Decision Makin:40 23 yo F with otitis externa and eczema like rash will treat with RX for Cipro HC otic drops and medrol dose pack for rash Discussed diagnosis, treatment, return precautions and f/u with pt who is understanding, in agreement and stable for dc Disposition - Clinical Impression Clinical Impression: Otitis externa of left ear, Eczema - Patient ED Disposition Is Patient to be Admitted: No Counseled Patient/Family Regarding: Studies Performed, Diagnosis, Need For Followup, Rx Given - Disposition Referrals: [facility] [Outside] Disposition: Routine/Home Disposition Time: 20:55 Condition: STABLE Additional Instructions: Thank you for letting us take care of you today. You were treated for outer ear infection and skin rash, likely eczema The emergency medical care you received today was directed at your acute symptoms. If you were prescribed any medication, please fill it and take as directed. It may take several days for your symptoms to resolve. Return to the Emergency Department if your symptoms worsen, do not improve, or if you have any other problems. Please contact your doctor in 2 days for re-evaluation and follow up / or call one of the physicians/clinics you have been referred to that are listed on the Patient Visit Information form that is included in your discharge packet. Bring any paperwork you were given at discharge with you along with any medications you are taking to your follow up visit. Our treatment cannot replace ongoing medical care by a primary care provider (PCP) outside of the emergency department. Thank you for allowing the [facility] team to be part of your care today. Prescriptions: Ciprofloxacin/Hydrocortisone [Cipro Hc Otic Suspension] 10 ml OT BID #3 drops.susp Methylprednisolone [Medrol Dose Pack (21 tabs)] 4 mg PO DAILY #21 mg Instructions: Eczema (Atopic Dermatitis), Outer Ear Infection Forms: [employer] (Portuguese) Print Language: ARMENIAN - POA Present On Arrival: None
== END 2019-01-23 22:05 | disposition home or self-care (01) ==
LOC: H.ER 18:36
DX: H60.92 Unspecified otitis externa, left ear (principal); Z79.82 Long term (current) use of aspirin; G89.29 Other chronic pain; L30.9 Dermatitis, unspecified; H92.10 Otorrhea, unspecified ear

== ENCOUNTER 2019-03-13 13:45 | Emergency (ER) | payer OTHER ==
[2019-03-13 13:52] VITALS: BMI 32.3
[2019-03-13 13:54] VITALS: TEMP 97.9
[2019-03-13] MEDS ORDERED: DiphenhydrAMINE 50 mg/ml Inj IVP STA (16:30)
[2019-03-13] MEDS ORDERED: Sodium Chloride 0.9% 1,000 ML IV SCH (16:30)
--- NOTE | 2019-03-13 16:46 | ED PDOC ---
HPI: General Adult Time Seen by Provider: 03/13/19 16:05 Chief Complaint (Nursing): Dizziness/Lightheaded Chief Complaint (Provider): headache, vomiting History Per: Patient History/Exam Limitations: no limitations Onset/Duration Of Symptoms: Days Additional Complaint(s): 23 yo F with h/o stroke and migraines presents to ED for evaluation of frontal headache, bodyaches, lightheaded, abdominal pain, nausea and vomiting for 5 days now. Pt notes she has been able to tolerate PO at times and drinking plenty of water, but then will have times where she is nauseous, vomiting and unable to keep anything down,. She is currently nauseous. SHe notes frontal headache that comes and goes, worse today, and different than previous migraines. She does have photophobia and notes when walking she feels like she may fall. Pt notes intermittent stuffy nose. 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 Pt denies fevers, chills, changes in vision, extremity weakness, numbness or tingling, recent travel outside of [facility] [place] (2 hour flight to [place] 2 weeks ago), chest pain, difficulty breathing, urinary symptoms. PMD: [facility] LMP: 03/02 Past Medical History Reviewed: Historical Data, Nursing Documentation, Vital Signs Vital Signs: Last Vital Signs Temp 97.9 F 03/13/19 13:52 Pulse 78 03/13/19 13:52 Resp 17 03/13/19 13:52 BP 107/63 03/13/19 13:52 Pulse Ox 97 03/13/19 13:52 Primary Care Provider: Doctor,Conversion - Medical History PMH: CVA, Gastritis, Hypercholesterolemia, Migraine, TIA, Chronic Pain (left foot) Denies: Chronic Kidney Disease - Surgical History Surgical History: Tonsillectomy (and adenoidectomy) - Family History Family History: States: [place], CAD - Social History Current smoker - smoking cessation education provided: No Alcohol: None Drugs: Denies - Home Medications Home Medications: Ambulatory Orders Medication Instructions Recorded Aspirin [Aspirin EC] 325 mg PO DAILY #30 ect 07/12/18 Atorvastatin [Lipitor] 10 mg PO DAILY #30 tab 07/12/18 oxyCODONE/Acetaminophen [Percocet 1 ea PO Q6H PRN #10 tab 09/04/18 5/325 mg Tab] Ondansetron ODT [Zofran ODT] 4 mg PO Q6 PRN #10 odt 10/25/18 Esomeprazole Magnesium [Nexium] 20 mg PO DAILY #30 capsule. 01/11/19 Ondansetron ODT [Zofran ODT] 1 odt PO Q6 PRN #20 odt 01/11/19 Saccharomyces Boulardi [Florastor] 500 mg PO BID #28 cap 01/11/19 Azithromycin [Zithromax] 250 mg PO DAILY #6 tab 01/17/19 Famotidine [Pepcid] 20 mg PO BID PRN #10 tab 01/17/19 Ciprofloxacin/Hydrocortisone 10 ml OT BID #3 drops.susp 01/23/19 [Cipro Hc Otic Suspension] Methylprednisolone [Medrol Dose 4 mg PO DAILY #21 mg 01/23/19 Pack (21 tabs)] Ibuprofen [Motrin Tab] 600 mg PO Q6 PRN #20 tab 03/13/19 Nitrofurantoin Macrocrystals 100 mg PO BID 7 Days #14 cap 03/13/19 [Macrobid] Ondansetron ODT [Zofran ODT] 4 mg PO TID PRN #12 odt 03/13/19 - Allergies Allergies/Adverse Reactions: Allergies Allergy/AdvReac Type Severity Reaction Status Date / Time Penicillins Allergy RASH Verified 03/13/19 15:44 pineapple Allergy SWELLING Verified 03/13/19 15:44 Review of Systems Constitutional: Negative for: Fever, Chills Eyes: Negative for: Pain, Vision Change ENT: Positive for: Nose Congestion. Negative for: Ear Pain, Throat Pain, Throat Swelling Cardiovascular: Negative for: Chest Pain Respiratory: Negative for: Cough, Shortness of Breath, Hemoptysis Gastrointestinal: Positive for: Nausea, Vomiting, Abdominal Pain Genitourinary Female: Negative for: Dysuria, Frequency Skin: Negative for: Rash Physical Exam - Reviewed Nursing Documentation Reviewed: Yes Vital Signs Reviewed: Yes - Physical Exam Comments: GENERAL APPEARANCE: Patient is awake, alert, oriented x 3, obese, in no acute d istress. SKIN: Warm, dry; (-) cyanosis; (-) rash. HEAD: (-) scalp swelling or tenderness, (-) temporal artery tenderness. EYES: (-) conjunctival pallor, (-) scleral icterus. (+)teary eyes, EOMI, PERRLA ENMT: (-) sinus tenderness; mucous membranes are moist. NECK: (-) tenderness, (-) stiffness, (-) meningismus, (-) lymphadenopathy. CHEST AND RESPIRATORY: (-) rales, (-) rhonchi, (-) wheezes; breath sounds equal bilaterally. HEART AND CARDIOVASCULAR: (-) irregularity; (-) murmur, (-) gallop. ABDOMEN AND GI: Soft; (-) tenderness. (-)rebound (-)guarding (-)masses EXTREMITIES: (-) deformity. pulses +2, capillary refill <2sec, strength 5/5 x4 NEURO AND PSYCH: Mental status as above. 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 Strength and DTRs symmetric. Babinski normal bilaterally. - Laboratory Results Result Diagrams: 03/13/19 17:09 03/13/19 17:09 - ECG O2 Sat by Pulse Oximetry: 97 Medical Decision Making Medical Decision Makin:05 initial eval -- migraine vs GI bug vs flu vs viral -- labs -- Upreg, UA -- toradol, reglan, benadryl -- influenza -- IVF --orthostatic BP -- re eval 18:15 on re eval pt is resting comfortably, she received medications only 30 mins ago and still getting IVF, pt was able to get up, walk to bathroom and feels better, with no lightheaded/dizziness, no nausea or vomiting, but continues with headache in front of her head, will continue with IVF and give meds some more time then re eval 18:50 on re eval pt is sleeping comfortably in stretcher, easily arousable, pt reports her headache is now gone, she is feeling much better at this time, neurologically intact, labs unremarkable, UA with blood and bacteria, will cover with macrobid Discussed results, diagnosis, treatment, return precautions and f/u with pt who is understanding, in agreement and stable for dc Disposition - Clinical Impression Clinical Impression: Urinary tract infection, Headache - Patient ED Disposition Is Patient to be Admitted: No Counseled Patient/Family Regarding: Studies Performed, Diagnosis, Need For Followup, Rx Given - Disposition Referrals: [facility] [Outside] Disposition: Routine/Home Disposition Time: 18:54 Condition: IMPROVED Additional Instructions: The emergency medical care you received today was directed at your acute symptoms. If you were prescribed any medication, please fill it and take as directed. It may take several days for your symptoms to resolve. Return to the Emergency Department if your symptoms worsen, do not improve, or if you have any other problems. Please contact your doctor in 2 days for re-evaluation and follow up / or call one of the physicians/clinics you have been referred to that are listed on the Patient Visit Information form that is included in your discharge packet. Bring any paperwork you were given at discharge with you along with any medications you are taking to your follow up visit. Our treatment cannot replace ongoing m edical care by a primary care provider (PCP) outside of the emergency department. Prescriptions: Ibuprofen [Motrin Tab] 600 mg PO Q6 PRN #20 tab PRN Reason: Pain, Moderate (4-7) Nitrofurantoin Macrocrystals [Macrobid] 100 mg PO BID 7 Days #14 cap Ondansetron ODT [Zofran ODT] 4 mg PO TID PRN #12 odt PRN Reason: Nausea/Vomiting Instructions: Urinary Tract Infections in Adults, Headache, Adult (DC) Forms: [employer] (Wolof) Print Language: KHMER - POA Present On Arrival: None
[2019-03-13 17:00] LABS: SQUAMOUS EPITHIAL 7 /hpf (0-5); URINE BACTERIA FEW (<OCC); URINE BILIRUBIN NEGATIVE (NEGATIVE); URINE BLOOD SMALL (NEGATIVE); URINE CLARITY CLOUDY (Clear); URINE COLOR YELLOW (YELLOW); URINE GLUCOSE (UA) NEG (NEGATIVE); URINE LEUKOCYTE ESTERASE NEG Leu/uL (Negative); URINE PROTEIN 30 mg/dL (NEGATIVE); URINE UROBILINOGEN 0.2-1.0 mg/dL (0.2-1.0)
[2019-03-13 17:13] LABS: BASO % 0.3 % (0.0-2.0); EOS % 0.2 % (0.0-4.0); MEAN CELL VOLUME 82.6 fl (81.0-99.0); MEAN CORPUSCULAR HGB CONC 32.7 g/dL (33.0-37.0); MEAN PLATELET VOLUME 9.6 fl (7.2-11.7); MONO # 0.4 K/uL (0.0-0.8); MONO % 4.2 % (0.0-10.0); NEUT # 8.7 K/uL (1.8-7.0); NEUT % 85.3 % (50.0-75.0); RBC 4.82 Mil/uL (3.80-5.20); WHITE BLOOD COUNT 10.2 K/uL (4.8-10.8)
[2019-03-13 17:24] LABS: ALB/GLOB RATIO 1.3 (1.0-2.1); ALBUMIN 4.4 g/dL (3.5-5.0); ALT/SGPT 42 U/L (9-52); AST/SGOT 35 U/L (14-36); BLOOD UREA NITROGEN 12 mg/dl (7-17); CALCIUM 9.8 mg/dL (8.4-10.2); GFR NON-AFRICAN AMERICAN > 60; LIPASE 72 U/L (23-300)
[2019-03-13] MEDS ORDERED: DiphenhydrAMINE 50 mg/ml Inj ONE (17:43)
[2019-03-13 19:13] VITALS: BP 128/62; O2SAT 99
[2019-03-13 20:05] VITALS: PULSE 96; RESP 18
== END 2019-03-13 18:58 | disposition home or self-care (01) ==
LOC: H.ER 13:45
DX: N39.0 Urinary tract infection, site not specified (principal); R51 Headache
CPT/HCPCS: 80053; 81003; 81025; 83690; 85025; 87804; 96361; 96374; 96375; 99285; J1200; J1885; J2765; J7030